=== PATIENT | female | born 1965 | race Caucasian/White ===

== ENCOUNTER 2017-01-26 07:57 | Day surgery (SDC) | payer BC ==
[2017-01-26] MEDS ORDERED: Lactated Ringers 1,000 ML IV SCH (08:45)
[2017-01-26] MEDS ORDERED: Lidocaine 1% 2 ML ONE (08:59)
[2017-01-26] MEDS ORDERED: Glycopyrrolate 0.2 MG/ML 2 ML SYRINGE IVPUSH ONE (09:30)
[2017-01-26] MEDS ORDERED: Cyanocobalamin (Vitamin B12) 1,000 MCG/ML SDV IM ONE (09:30)
[2017-01-26] MEDS ORDERED: MVI, Adult with Vitamin K 10 ML, Thiamine 200 MG, Chromium/Copper/Mang/Selen/Zn 1 ML in... IV ONE ×4 (09:45)
[2017-01-26] MEDS ORDERED: fentaNYL 100 MCG/2 ML SDV ONE (10:59)
[2017-01-26] MEDS ORDERED: Propofol 200 MG/20 ML SDV ONE (10:59)
[2017-01-26] MEDS ORDERED: Midazolam 1 MG/ML 2 ML SDV ONE (10:59)
[2017-01-26 12:26] VITALS: BP 112/66
[2017-01-26] MEDS ORDERED: Ondansetron 4 MG/2 ML SDV IVPUSH ONE (12:30)
--- NOTE | 2017-01-28 18:54 | OR ---
DATE OF PROCEDURE: 01/26/2017 PREOPERATIVE DIAGNOSIS: Probable strictured gastrojejunostomy. POSTOPERATIVE DIAGNOSIS: Moderate strictured gastrojejunostomy. OPERATIVE PROCEDURES: Upper GI endoscopy with dilation gastrojejunostomy (64952). ANESTHESIA: IV sedation. INDICATION FOR PROCEDURE: This is a 51-year-old status post Marjorie-en-Y gastric bypass on 01/26/2017. She presents with some stricturing in her gastrojejunostomy. Plan is proceed with upper GI endoscopy with dilation as indicated. Potential risks including bleeding and perforation were discussed and the patient wishes to proceed. DETAILS OF PROCEDURE: The patient was taken to the operating room and placed in a left lateral decubitus position. IV sedation was administered, after which the upper GI endoscope was passed orally through the length of the esophagus and into the gastric pouch. At that point, the patient noted a moderate stricture of the gastrojejunostomy with a 1-cm scope just being barely able to be passed through the anastomosis. A Bard gastrojejunostomy catheter was then centered across the anastomosis and inflated to 36-Armenian size. This was held in position for 1 minute after the balloon catheter was deflated and withdrawn. The scope could easily then be passed through the anastomosis without any complications noted and the patient was taken to the recovery room in a satisfactory condition after removal of the scope. Eliazar Perez MD /[id number]
== END 2017-01-26 13:30 | disposition home or self-care (01) ==
LOC: JP.SDS 07:57
PROVIDERS: ATTEND Surgery
DX: K91.89 Other postprocedural complications and disorders of digestive system (principal); G47.30 Sleep apnea, unspecified; K21.9 Gastro-esophageal reflux disease without esophagitis; E66.01 Morbid (severe) obesity due to excess calories; Z88.1 Allergy status to other antibiotic agents; Z88.8 Allergy status to other drugs, medicaments and biological substances; Z91.048 Other nonmedicinal substance allergy status
CPT/HCPCS: 43245; J2250; J2405; J2704; J3010; J3411; J3420; J7120

== ENCOUNTER 2017-02-01 10:05 | Day surgery (SDC) | payer BC ==
[2017-02-01] MEDS ORDERED: Lactated Ringers 1,000 ML IV SCH (13:00)
[2017-02-01] MEDS ORDERED: Glycopyrrolate 0.2 MG/ML 2 ML SYRINGE IVPUSH ONE (13:00)
[2017-02-01] MEDS ORDERED: MVI, Adult with Vitamin K 10 ML, Thiamine 200 MG, Chromium/Copper/Mang/Selen/Zn 1 ML in... IV ONE ×4 (13:30)
[2017-02-01] MEDS ORDERED: Cyanocobalamin (Vitamin B12) 1,000 MCG/ML SDV IM ONE (13:30)
[2017-02-01] MEDS ORDERED: Propofol 200 MG/20 ML SDV ONE (13:59)
[2017-02-01] MEDS ORDERED: Midazolam 1 MG/ML 2 ML SDV ONE (13:59)
[2017-02-01] MEDS ORDERED: fentaNYL 100 MCG/2 ML SDV ONE (13:59)
[2017-02-01] MEDS ORDERED: Ondansetron 4 MG/2 ML SDV IVPUSH ONE (14:50)
[2017-02-01 15:38] VITALS: BP 121/66
--- NOTE | 2017-02-02 07:18 | OR ---
DATE OF PROCEDURE: 02/01/2017 PREOPERATIVE DIAGNOSES: Dysphagia, recent Marjorie-en-Y gastric bypass. POSTOPERATIVE DIAGNOSES: Strictured gastrojejunostomy, recent Marjorie-en-Y gastric bypass. PROCEDURE: Esophagogastroduodenoscopy with dilation of gastrojejunostomy. ANESTHESIA: IV anesthesia with monitored anesthesia care. INDICATIONS: This 51-year-old white female, had a recent Marjorie-en-Y gastric bypass. A week ago, she underwent gastric dilatation for a strictured gastrojejunostomy. She did fine initially but then within the last day had noted recurrence of her symptoms of dysphagia. She is referred for upper endoscopy with possible dilatation. I counseled her for this and she gave her informed consent to proceed. DESCRIPTION OF PROCEDURE: The patient was placed in the left lateral decubitus position. IV anesthesia was administered by the Anesthesia Service. Time-out was held. The flexible video Olympus upper endoscope was passed through her mouth, down her esophagus, and into her stomach remnant. The scope would not go across the anastomosis. Under fluoroscopic guidance, we placed a 36-Honduran balloon. We then inflated the balloon for one minute. The balloon was then deflated and removed. We were then able to pass the scope through the anastomosis. All looked well. The scope was removed. She tolerated the procedure well. Nilson Bassett MD /[id number]
== END 2017-02-01 15:47 | disposition home or self-care (01) ==
LOC: JP.SDS 10:05
PROVIDERS: ATTEND Surgery
DX: K91.89 Other postprocedural complications and disorders of digestive system (principal); Z98.84 Bariatric surgery status; Z88.1 Allergy status to other antibiotic agents; Z88.8 Allergy status to other drugs, medicaments and biological substances; Z91.09 Other allergy status, other than to drugs and biological substances
CPT/HCPCS: 43233; J2250; J2405; J2704; J3010; J3411; J3420; J7120

== ENCOUNTER 2017-02-14 06:44 | Day surgery (SDC) | payer BC ==
[2017-02-14] MEDS ORDERED: Lactated Ringers 1,000 ML IV ONE (07:15)
[2017-02-14] MEDS ORDERED: Cyanocobalamin (Vitamin B12) 1,000 MCG/ML SDV IM ONE (07:30)
[2017-02-14] MEDS ORDERED: Glycopyrrolate 0.2 MG/ML 2 ML SYRINGE IVPUSH ONE (08:15)
[2017-02-14] MEDS ORDERED: Propofol 200 MG/20 ML SDV ONE (08:26)
[2017-02-14] MEDS ORDERED: fentaNYL 100 MCG/2 ML SDV ONE (08:27)
[2017-02-14] MEDS ORDERED: Midazolam 1 MG/ML 2 ML SDV ONE (08:27)
[2017-02-14] MEDS ORDERED: MVI, Adult with Vitamin K 10 ML, Thiamine 200 MG, Chromium/Copper/Mang/Selen/Zn 1 ML in... IV ONE ×4 (08:30)
[2017-02-14 10:47] VITALS: BP 117/65
--- NOTE | 2017-02-21 10:59 | OR ---
DATE OF PROCEDURE: 02/14/2017 PREOPERATIVE DIAGNOSIS: Probable stricture at gastrojejunostomy. POSTOPERATIVE DIAGNOSIS: Mild stricture at gastrojejunostomy. OPERATIVE PROCEDURE: Upper GI endoscopy with dilation of gastrojejunostomy (90505). ANESTHESIA: IV sedation. INDICATION FOR PROCEDURE: A 51-year-old status post Marjorie-en-Y gastric bypass on 12/29/2016, presents now with symptoms suggestive of stricturing at her gastrojejunostomy. Plan is to proceed with upper endoscopy with dilation as indicated. Potential risks including bleeding and perforation were discussed, and the patient wishes to proceed. DETAILS OF PROCEDURE: The patient was taken to the operating room and placed in a left lateral decubitus position. IV sedation was administered, after which the upper GI endoscope was passed orally through the length of esophagus into the gastric pouch. The scope could easily then be passed through the anastomosis, indicating at least a 1 cm in diameter opening. The Bard gastrointestinal balloon catheter was then centered across the anastomosis and inflated to #45 Swazi size. This was held in position for 1 minute, after which the balloon catheter was deflated and withdrawn. The area was examined. No complications were evident. Procedure then concluded with removal of the scope. The patient was taken to the recovery room in satisfactory condition. Eliazar Perez MD /[id number]
== END 2017-02-14 10:30 | disposition home or self-care (01) ==
LOC: JP.SDS 06:44
PROVIDERS: ATTEND Surgery
DX: K91.89 Other postprocedural complications and disorders of digestive system (principal); K21.9 Gastro-esophageal reflux disease without esophagitis; E66.01 Morbid (severe) obesity due to excess calories; Z88.1 Allergy status to other antibiotic agents; Z88.8 Allergy status to other drugs, medicaments and biological substances
CPT/HCPCS: 43245; J2250; J2704; J3010; J3411; J3420; J7120

== ENCOUNTER 2017-06-30 05:57 | Day surgery (SDC) | payer BC ==
[2017-06-30] MEDS ORDERED: Dextrose 5%-Lactated Ringers 1,000 ML IV SCH (06:30)
[2017-06-30] MEDS ORDERED: fentaNYL 100 MCG/2 ML SDV ONE (07:20)
[2017-06-30] MEDS ORDERED: Propofol 200 MG/20 ML SDV ONE (07:20)
[2017-06-30] MEDS ORDERED: Midazolam 1 MG/ML 2 ML SDV ONE (07:20)
[2017-06-30 09:08] VITALS: BP 119/34
--- NOTE | 2017-07-03 13:04 | OR ---
DATE OF PROCEDURE: 06/30/2017 PREOPERATIVE DIAGNOSIS: Indications for screening colonoscopy. POSTOPERATIVE DIAGNOSIS: Normal screening colonoscopy. OPERATIVE PROCEDURE: Flexible colonoscopy. ANESTHESIA: IV sedation. INDICATION FOR PROCEDURE: This is a 51-year-old presenting for initial screening colonoscopy. She has no personal or family history of colon neoplasia. Potential risks of the procedure including bleeding and perforation were discussed, and the patient wishes to proceed. DETAILS OF PROCEDURE: The patient was taken to the operating room and placed in a left lateral decubitus position. IV sedation was administered, after which the initial digital rectal exam was performed and was unremarkable. Colonoscope was then passed to the level of the cecum. The prep was fairly good. There were some liquid stool present obscuring smaller portions of the mucosa. To that level, no abnormalities were noted; specifically, there were no diverticula, no areas of colitis and no polyps or other signs of neoplasia. The scope was then withdrawn and the findings reconfirmed. The procedure was concluded. The patient was taken to the recovery room in a satisfactory condition. Recommendation would be to repeat the colonoscopy in 10 years. Eliazar Perez MD /[id number]
== END 2017-06-30 09:07 | disposition home or self-care (01) ==
LOC: JP.SDS 05:57
PROVIDERS: ATTEND Surgery
DX: Z12.11 Encounter for screening for malignant neoplasm of colon (principal); K21.9 Gastro-esophageal reflux disease without esophagitis; E66.9 Obesity, unspecified; G47.30 Sleep apnea, unspecified; E55.9 Vitamin D deficiency, unspecified; Z88.1 Allergy status to other antibiotic agents; Z88.8 Allergy status to other drugs, medicaments and biological substances; Z91.09 Other allergy status, other than to drugs and biological substances; Z98.890 Other specified postprocedural states; Z90.710 Acquired absence of both cervix and uterus; Z90.49 Acquired absence of other specified parts of digestive tract; Z98.51 Tubal ligation status; Z96.653 Presence of artificial knee joint, bilateral; Z68.30 Body mass index [BMI] 30.0-30.9, adult
CPT/HCPCS: 45378; J2250; J2704; J3010

== ENCOUNTER 2018-03-30 05:23 | Inpatient (IN) | payer BC ==
[2018-03-30] MEDS ORDERED: Acetaminophen 500 MG Tab PO ONE (05:30)
[2018-03-30] MEDS ORDERED: Scopolamine 1.5 MG Transdermal Patch TOP SCH (06:00)
[2018-03-30] MEDS ORDERED: cefOXitin 2 GM in Sodium Chloride 0.9% 50 ML IV ONE (06:00)
[2018-03-30] MEDS ORDERED: fentaNYL 250 MCG/5 ML SDV ONE (06:52)
[2018-03-30] MEDS ORDERED: Midazolam 1 MG/ML 2 ML SDV ONE (06:52)
[2018-03-30] MEDS ORDERED: Meropenem 500 MG SDV ONE (06:58)
[2018-03-30] MEDS ORDERED: Bupivacaine 0.5%/EPINEPHrine 1:200,000 50 ML MDV ONE (06:58)
[2018-03-30] MEDS: Dextrose 5%-Lactated Ringers 1,000 ML IV SCH ×2 (07:01→10:56)
[2018-03-30] MEDS ORDERED: cefOXitin 2 GM Vial ONE (07:34)
[2018-03-30] MEDS ORDERED: Ketamine 500 MG/5 ML MDV IV SCH (07:45)
[2018-03-30] MEDS ORDERED: Ropivacaine 43 ML, Dexamethasone 8 MG, EPINEPHrine 0.4 MG, Sodium Chloride 0.9% 34.6 ML NERVRT SCH ×4 (07:45)
[2018-03-30] MEDS ORDERED: Naloxone 0.4 MG/ML SDV IV PRN (08:11)
[2018-03-30] MEDS ORDERED: Dexamethasone 4 MG/ML SDV ONE (08:19)
[2018-03-30] MEDS ORDERED: Glycopyrrolate 0.2 MG/ML 5 ML MDV ONE (08:19)
[2018-03-30] MEDS ORDERED: Rocuronium 50 MG/5 ML Vial ONE (08:19)
[2018-03-30] MEDS ORDERED: Ondansetron 4 MG/2 ML SDV ONE (08:19)
[2018-03-30] MEDS ORDERED: Neostigmine Methylsulfate 1 MG/ML 5 ML Syringe ONE (08:19)
[2018-03-30] MEDS ORDERED: Propofol 200 MG/20 ML SDV ONE (08:19)
[2018-03-30] MEDS ORDERED: hydrOXYzine HCl 100 MG/2 ML SDV IM ONE (09:36)
[2018-03-30] MEDS ORDERED: fentaNYL 100 MCG/2 ML SDV IVPUSH ONE (09:37)
[2018-03-30] MEDS ORDERED: Meperidine PF 100 MG/ML Syringe IM ONE (10:20)
[2018-03-30] MEDS ORDERED: Meperidine PF 100 MG/ML Syringe ONE (10:30)
[2018-03-30] MEDS: HYDROmorphone/Normal Saline 15 MG/30 ML PCA IV PRN (11:47)
[2018-03-30] MEDS ORDERED: Cyclobenzaprine 10 MG Tab PO PRN (11:56)
[2018-03-30] MEDS ORDERED: Pantoprazole 40 MG Vial IVPUSH SCH (12:00)
[2018-03-30] MEDS ORDERED: Ondansetron 4 MG/2 ML SDV IVPUSH PRN (12:00)
[2018-03-30] MEDS ORDERED: Labetalol 20 MG/4 ML Syringe IVPUSH PRN (12:00)
[2018-03-30] MEDS ORDERED: Metoclopramide 10 MG/2 ML SDV IVPUSH PRN (12:00)
[2018-03-30] MEDS ORDERED: hydrOXYzine HCl 100 MG/2 ML SDV IM PRN (12:00)
[2018-03-30] MEDS: Acetaminophen Soln 650 MG/20.3 ML UD Cup PO SCH ×3 (12:36→23:15)
[2018-03-30] MEDS: cefOXitin 2 GM in Sodium Chloride 0.9% 50 ML IV SCH ×2 (13:40→20:44)
[2018-03-30] MEDS ORDERED: MVI, Adult with Vitamin K 10 ML, Thiamine 100 MG, Chromium/Copper/Mang/Selen/Zn 1 ML in... IV SCH ×4 (16:00)
[2018-03-30] MEDS: Heparin Sodium 5,000 Units/ML Vial SUBCUT SCH (20:44)
[2018-03-30] MEDS: traZODone 50 MG Tab PO SCH (21:51)
[2018-03-30] MEDS: tiZANidine 4 MG Tab PO SCH (21:51)
[2018-03-31] MEDS: Dextrose 5%-Lactated Ringers 1,000 ML IV SCH ×3 (00:10→11:44)
[2018-03-31] MEDS ORDERED: Iohexol 647 MG/ML 50 ML SDV PO PRN (01:04)
[2018-03-31] MEDS: cefOXitin 2 GM in Sodium Chloride 0.9% 50 ML IV SCH ×2 (02:38→07:43)
[2018-03-31] MEDS: HYDROmorphone/Normal Saline 15 MG/30 ML PCA IV PRN (03:24)
[2018-03-31] MEDS: Acetaminophen Soln 650 MG/20.3 ML UD Cup PO SCH ×4 (05:25→23:57)
[2018-03-31] MEDS: Heparin Sodium 5,000 Units/ML Vial SUBCUT SCH ×2 (07:42→20:00)
[2018-03-31] MEDS: SCOPOLAMINE PATCH CHECK TOP SCH (08:52)
[2018-03-31] MEDS ORDERED: Tamsulosin 0.4 MG Cap.ER PO ONE (09:30)
[2018-03-31] MEDS ORDERED: Loratadine 10 MG Tab PO SCH (09:30)
[2018-03-31] MEDS ORDERED: Estradiol 0.5 MG Tab PO SCH (09:30)
[2018-03-31] MEDS: Docusate Sodium 100 MG Cap PO SCH ×2 (10:18→20:06)
[2018-03-31] MEDS: Pantoprazole 40 MG Tab.CR PO SCH (11:22)
[2018-03-31] MEDS: diphenhydrAMINE 50 MG/ML SDV IVPUSH PRN ×2 (13:11→19:46)
[2018-03-31] MEDS ORDERED: MVI, Adult with Vitamin K 10 ML, Thiamine 100 MG, Chromium/Copper/Mang/Selen/Zn 1 ML in... IV SCH ×4 (16:00)
[2018-03-31] MEDS ORDERED: diphenhydrAMINE 50 MG/ML SDV ONE (19:36)
[2018-03-31] MEDS ORDERED: Morphine PF 150 MG/30 ML PCA Syringe IV PRN (19:43)
[2018-03-31] MEDS ORDERED: methylPREDNISolone Sodium Succinate 40 MG/1 ML SDV IVPUSH ONE (19:45)
[2018-03-31] MEDS: Estradiol 0.5 MG Tab PO SCH (20:05)
[2018-03-31] MEDS: traZODone 50 MG Tab PO SCH (20:05)
[2018-03-31] MEDS: tiZANidine 4 MG Tab PO SCH (20:05)
[2018-03-31] MEDS: Loratadine 10 MG Tab PO SCH (20:05)
[2018-03-31] MEDS: Melatonin 3 MG Tab PO SCH (20:06)
[2018-03-31] MEDS ORDERED: Morphine PF 150 MG/30 ML PCA Syringe ONE (20:09)
[2018-03-31] MEDS ORDERED: methylPREDNISolone Sodium Succinate 125 MG/2 ML SDV ONE (20:10)
[2018-03-31] MEDS ORDERED: Tamsulosin 0.4 MG Cap.ER PO SCH (21:00)
[2018-04-01] MEDS: Dextrose 5%-Lactated Ringers 1,000 ML IV SCH (02:10)
[2018-04-01] MEDS: Acetaminophen Soln 650 MG/20.3 ML UD Cup PO SCH (05:49)
[2018-04-01] MEDS: Pantoprazole 40 MG Tab.CR PO SCH (07:32)
[2018-04-01] MEDS ORDERED: Sodium Chloride 0.9% 10 ML Syringe IV PRN (07:43)
[2018-04-01] MEDS: Heparin Sodium 5,000 Units/ML Vial SUBCUT SCH ×2 (08:12→21:18)
[2018-04-01] MEDS: Docusate Sodium 100 MG Cap PO SCH ×2 (08:13→21:19)
[2018-04-01] MEDS: Acetaminophen/oxyCODONE 325-5 MG Tab PO PRN ×4 (08:13→21:19)
[2018-04-01] MEDS: SCOPOLAMINE PATCH CHECK TOP SCH (08:14)
[2018-04-01] MEDS ORDERED: Cyanocobalamin (Vitamin B12) 1,000 MCG/ML SDV IM ONE (09:00)
[2018-04-01] MEDS ORDERED: Magnesium Hydroxide 400 MG/5 ML Susp 30 ML Cup PO ONE (16:00)
--- NOTE | 2018-04-01 16:07 | PN ---
DATE OF SERVICE: 04/01/2018 The patient has been afebrile with stable vital signs. Oral intake is fairly good. We will saline lock the IV. We will order oral Percocet today for pain. Urine output has been satisfactory and we will discontinue the Flomax. We will continue to give her some bowel stimulation with some Dulcolax oral tablets. Eliazar Perez MD /[id number]
[2018-04-01] MEDS ORDERED: Bisacodyl 5 MG Tab PO ONE (17:00)
[2018-04-01] MEDS: tiZANidine 4 MG Tab PO SCH (21:19)
[2018-04-01] MEDS: Melatonin 3 MG Tab PO SCH (21:19)
[2018-04-01] MEDS: Loratadine 10 MG Tab PO SCH (21:19)
[2018-04-01] MEDS: traZODone 50 MG Tab PO SCH (21:19)
[2018-04-01] MEDS: Estradiol 0.5 MG Tab PO SCH (21:19)
[2018-04-01] MEDS ORDERED: Ondansetron 4 MG Tab.DIS PO PRN (23:29)
[2018-04-02] MEDS: Acetaminophen/oxyCODONE 325-5 MG Tab PO PRN ×2 (02:58→10:23)
[2018-04-02] MEDS ORDERED: Acetaminophen 325 MG Tab PO ONE (06:29)
[2018-04-02 07:42] VITALS: BP 113/67
[2018-04-02] MEDS: Pantoprazole 40 MG Tab.CR PO SCH (07:51)
[2018-04-02] MEDS: Heparin Sodium 5,000 Units/ML Vial SUBCUT SCH (07:53)
--- NOTE | 2018-04-02 08:45 | DISCH ---
ADMISSION DIAGNOSES: Partial small bowel obstruction, celiac disease, status post Marjorie-en-Y gastric bypass surgery, iron deficiency anemia, chronic low back pain, premature ventricle contractions, B12 deficiency, unspecified surgical malabsorption, osteoarthritis, mood changes, osteoporosis, spinal stenosis, chronic pain syndrome, neuropathy, arachnoiditis, and insomnia. DISCHARGE DIAGNOSES: Laparoscopic turned to laparotomy with reduction of small bowel volvulus and closure of internal hernia, small bowel resection and repair of incarcerated incisional hernia for small bowel volvulus with focal hemorrhage to the segment of the small bowel and incarcerated umbilical hernia. Date of surgery, 03/30/2018. Surgeon, Eliazar Perez MD. HISTORY: Zaria Vigil is a 52-year-old female who is status post Marjorie-en-Y gastric bypass surgery on 12/29/2016, who presented to the clinic with postprandial abdominal pain. After preoperative assessment and discussion of possible risks and possible complications, she wished to proceed with surgical procedure. HOSPITAL COURSE: Zaria had her surgery on 03/30/2018. She had no operative complications. On postop day #1, she was started on her home medications. On postop day #2, her GIFT OFFICER was discontinued. She was changed to oral pain medications. She was voiding without difficulty. She was given bowel stimulation. On postop day #3, she was able to be discharged to home. PHYSICAL EXAMINATION: GENERAL: Zaria Vigil is a 52-year-old female. VITAL SIGNS: TPR is 97.7, 68, 16, and blood pressure 113/67. HEENT: Negative. NECK: Supple. HEART: Regular rate and rhythm. LUNGS: Clear. ABDOMEN: Lisa intact. Abdominal binder is currently off. EXTREMITIES: Without peripheral edema. DISPOSITION: Discharged to home. CONDITION: Stable and improving. FOLLOWUP APPOINTMENT: Clementina Anna PA-C, on 04/09/2018 at 10 a.m. DISCHARGE MEDICATIONS: New Prescriptions: 1. Percocet 5/325 mg 1 to 2 oral q.4 hours p.r.n. pain, #40. 2. Colace 100 mg oral b.i.d., #100. 3. She is to resume her home medications with the exception of tramadol. She is to stop taking the tramadol while on the Percocet. DISCHARGE DIET: Step-4 gastric bypass diet. Drink 8 to 10 glasses of water a day. ACTIVITY: No lifting greater than 10 pounds for 6 weeks. Walk 6 times daily, distance and time as tolerated. Driving, do not drive while on pain medication. Shower/bathing, may shower. DISCHARGE INSTRUCTIONS: Notify provider of fever, increased pain, nausea, or vomiting. Keep site clean and dry. Wound incision care, wear abdominal binder for 6 weeks. Special instructions; 1. Use incentive spirometer 10 times every hour while awake. 2. Take 119 grams of MiraLAX when you get home. Repeat in a.m. if you have not had a bowel movement.
--- NOTE | 2018-04-02 08:58 | CR ---
Limited upper GI The patient is status post Marjorie-en-Y gastric bypass. There are left upper quadrant drains in place. T here is no extravasation of contrast. The gastric pouch empties readily into a nondilated Marjorie limb. No complications are evident. There is free air underlying the right hemidiaphragm. Impression: 1. Status post Marjorie-en-Y gastric bypass without evidence for obstruction. 2. Pneumoperitoneum. Recommend clinical correlation of this finding with timing of surgery.
[2018-04-02] MEDS: Docusate Sodium 100 MG Cap PO SCH (10:11)
--- NOTE | 2018-04-02 13:02 | PN ---
DATE OF SERVICE: 03/31/2018 The patient is postop day #1 from a reduction of volvulus and small bowel resection. She has done well overnight. Urine output has been satisfactory. Arechiga catheter was removed. She did have problems with urinary retention previously and will be started on some Flomax empirically. Otherwise, restart the remainder of her oral standing medications. Start a step-4 diet, back down the IV rate, and work with pulmonary toilet. Will leave MONOTYPER going for today, most likely getting that switched over to oral pain medicine tomorrow. Eliazar Perez MD /[id number]
--- NOTE | 2018-04-03 09:01 | OR ---
DATE OF PROCEDURE: 03/30/2018 PREOPERATIVE DIAGNOSES: 1. Partial small bowel obstruction. 2. Umbilical hernia. POSTOPERATIVE DIAGNOSES: 1. Partial small bowel obstruction associated with small bowel volvulus associated with focal hemorrhage of short-segment of small bowel. 2. Incarcerated umbilical hernia. OPERATIVE PROCEDURES: Diagnostic laparoscopy converted to laparotomy with: 1. Reduction of small bowel volvulus and closure of internal hernia (82350). 2. Small bowel resection (87305). 3. Repair of incarcerated umbilical hernia (09594). ANESTHESIA: General. CLIENT RELATIONSHIP MANAGER: Clementina Anna PA-C. INDICATIONS FOR PROCEDURE: This is a 52-year-old presenting with a nonreducible umbilical hernia. The plan is to proceed with repair of this. She also has symptoms suggestive of a partial small bowel obstruction, status post Marjorie-en-Y gastric bypass. Plan is to proceed with a diagnostic laparoscopy, laparotomy if necessary, and repair of the hernia with or without mesh, as well as evaluation of small bowel with lysis of adhesions, reduction of any volvulus that would be identified, as well as possible small-bowel resection. This was all reviewed with the patient, and potential risks including bleeding, infection, leaks from various GI tract closures, possible problems with bowel obstruction once again recurring, and possibility of the umbilical hernia repair recurring likewise were all reviewed, and the patient wishes to proceed. DETAILS OF PROCEDURE: The patient was taken to the operating room and placed in a supine position. After general endotracheal anesthesia was induced, she was converted to a lithotomy position and a Arechiga catheter inserted and the abdomen was then prepped and draped. In the left lower quadrant, a transverse incision was made and the peritoneal cavity entered under direct vision with an Optiview trocar, inflated to 15 mmHg pressure with CO2. Laparoscope was then reinserted. No underlying trocar insertion site injuries were seen. Following this, bilateral as well as subcostal transversus abdominis plane blocks were placed with direct visualization of the needle tip in the correct plane and bilateral standard solution injected bilaterally. Following this, 5 mm trocars were placed in the right and left mid abdomen. The small bowel was then traced downward, and the patient was noted to have a volvulus with the Marjorie limb diving into the area of a mesenteric defect. One additional 5 mm trocar was then placed in the left mid abdomen. At that point, the small bowel volvulus was begun to be reduced, bringing the small bowel from a [id number] manner. As one proceeded roughly skilled nursing through this process, it became evident that the entrapment of the bowel in the hernia was somewhat too tight to safely complete laparoscopically. At that point, a decision was made to proceed with an open approach. At this point, the trocars had to be removed. An upper midline incision was made from the umbilicus, roughly a handsbreadth toward the xiphoid. This was carried down through the skin, subcutaneous tissue, fascia, and peritoneum. Upon entering the peritoneal cavity, the remainder of the volvulus was then able to be reduced manually. All the bowel appeared to be viable, other than a roughly 10 cm segment that had quite a bit of hemorrhage within the mesentery adjacent to the bowel predominantly, as well as some serosal injury at that bowel. The bowel proximal and distal to the point where it became abnormal was then divided with ORALIA aman, and the underlying mesentery was divided with ORALIA aman as well, and the small bowel, which was part of, at this point, the common limb, was removed. The small bowel continuity was then accomplished with internal firing of the Endo-ORALIA 60-mm stapler. The common opening was then closed transversely with the same stapler and the angles anastomosed, and mesenteric defect approximated with some 3-0 Vicryl stitch. At that point, the point where the small bowel volvulus had occurred, i.e. the mesenteric defect, was then closed with a running 2-0 silk stitch. The incision was then extended somewhat inferiorly. The incarcerated components of umbilical hernia, which was preperitoneal fat, were then reduced, and at that point, the umbilical hernia site was closed with two kukgqg-[id number]-qpoga stitches of #1 Prolene stitch. The area was irrigated with antibiotic-containing saline solution. The patient had sufficient omentum to mobilize downward to cover the area underlying the incision, and the incision was then closed with #2 Vicryl stitch at the fascia level. A Vince-Horne drain was then placed through the stab wound inferior to the main incision and the subcutaneous tissue approximated with 2 layers of 3-0 Vicryl stitch and the skin with aman. The drain was affixed with some 4-0 Vicryl stitch as well. The dressing was applied. The patient was taken to the recovery room in satisfactory condition. Physician surgical physician assistant, Clementina Anna, played an essential role in assisting in this case, helping to position the patient, retract structures as needed, as well as suturing and cutting sutures as and when indicated. Her presence improved patient safety and decreased the operative time. Eliazar Perez MD /[id number]
== END 2018-04-02 10:25 | disposition home or self-care (01) | DRG 223 ==
LOC: JP.MS 05:23 → JP.SDS 05:24 → JP.2SS 09:45 → EDSTATUS 11:00
PROVIDERS: ADMIT Surgery; ATTEND Surgery
PROC: 0DS80ZZ Reposition Small Intestine, Open Approach (ICD-10-PCS; principal; 2018-03-30)
PROC: 0DB80ZX Excision of Small Intestine, Open Approach, Diagnostic (ICD-10-PCS; 2018-03-30)
PROC: 0DJD4ZZ Inspection of Lower Intestinal Tract, Percutaneous Endoscopic Approach (ICD-10-PCS; 2018-03-30)
PROC: 3E0T3BZ Introduction of Anesthetic Agent into Peripheral Nerves and Plexi, Percutaneous Approach (ICD-10-PCS; 2018-03-30)
PROC: 0WQF0ZZ Repair Abdominal Wall, Open Approach (ICD-10-PCS; 2018-03-30)
DX: K56.2 Volvulus (principal); K42.0 Umbilical hernia with obstruction, without gangrene; Z53.31 Laparoscopic surgical procedure converted to open procedure; K55.8 Other vascular disorders of intestine; K91.2 Postsurgical malabsorption, not elsewhere classified; K90.0 Celiac disease; Z98.84 Bariatric surgery status; Z98.0 Intestinal bypass and anastomosis status; D50.9 Iron deficiency anemia, unspecified; M54.9 Dorsalgia, unspecified; G89.29 Other chronic pain; M19.90 Unspecified osteoarthritis, unspecified site; F39 Unspecified mood [affective] disorder; E53.8 Deficiency of other specified B group vitamins; I49.3 Ventricular premature depolarization; M81.0 Age-related osteoporosis without current pathological fracture; M48.00 Spinal stenosis, site unspecified; G62.9 Polyneuropathy, unspecified; G47.00 Insomnia, unspecified; H40.9 Unspecified glaucoma; J30.9 Allergic rhinitis, unspecified; Z88.1 Allergy status to other antibiotic agents; Z88.8 Allergy status to other drugs, medicaments and biological substances; Z91.048 Other nonmedicinal substance allergy status
CPT/HCPCS: 74240; 74240-26; 94762; A9270-GY; C9113; J0171; J0694; J1100; J1170; J1200; J1644; J2175; J2185; J2250; J2270; J2405; J2704; J2710; J2795; J2920; J3010; J3410; J3411; J3420; J7030; J7040; J7042; J7050; Q9967

== ENCOUNTER 2018-12-24 05:24 | Observation (INO) | payer BC ==
[2018-12-24] MEDS ORDERED: Scopolamine 1.5 MG Transdermal Patch TOP SCH (05:45)
[2018-12-24] MEDS ORDERED: Acetaminophen 500 MG Tab PO ONE (05:45)
[2018-12-24] MEDS ORDERED: ceFAZolin 2 GM in Premix Bag 1 BAG IV ONE (06:00)
[2018-12-24] MEDS ORDERED: Dextrose 5%-Lactated Ringers 1,000 ML IV SCH ×2 (06:00→09:30)
[2018-12-24] MEDS ORDERED: Meropenem 500 MG SDV ONE (06:44)
[2018-12-24] MEDS ORDERED: Dexamethasone 4 MG/ML SDV ONE (07:04)
[2018-12-24] MEDS ORDERED: Ondansetron 4 MG/2 ML SDV ONE (07:04)
[2018-12-24] MEDS ORDERED: Propofol 200 MG/20 ML SDV ONE (07:04)
[2018-12-24] MEDS ORDERED: Glycopyrrolate 0.2 MG/ML 5 ML MDV ONE (07:04)
[2018-12-24] MEDS ORDERED: Neostigmine Methylsulfate 1 MG/ML 5 ML Syringe ONE (07:04)
[2018-12-24] MEDS ORDERED: fentaNYL 250 MCG/5 ML SDV ONE (07:04)
[2018-12-24] MEDS ORDERED: Rocuronium 50 MG/5 ML Vial ONE (07:04)
[2018-12-24] MEDS ORDERED: Ketamine 500 MG/5 ML MDV IV SCH (07:30)
[2018-12-24] MEDS ORDERED: Ropivacaine 42 ML, Dexamethasone 8 MG, EPINEPHrine 0.4 MG, Sodium Chloride 0.9% 35.6 ML NERVRT SCH ×4 (07:30)
[2018-12-24] MEDS ORDERED: Ketamine 50 MG in Sodium Chloride 0.9% 49.5 ML IV SCH (07:30)
[2018-12-24] MEDS ORDERED: Bupivacaine 0.5%/EPINEPHrine 1:200,000 50 ML MDV ONE (07:57)
[2018-12-24] MEDS ORDERED: hydrOXYzine HCl 100 MG/2 ML SDV IM ONE (08:24)
[2018-12-24] MEDS ORDERED: fentaNYL 100 MCG/2 ML SDV ONE (08:26)
[2018-12-24] MEDS ORDERED: HYDROmorphone/Normal Saline 15 MG/30 ML PCA IV PRN (08:36)
[2018-12-24] MEDS ORDERED: Naloxone 0.4 MG/ML SDV IV PRN (08:39)
[2018-12-24] MEDS ORDERED: hydrOXYzine HCl 100 MG/2 ML SDV IM PRN (09:27)
[2018-12-24] MEDS ORDERED: Ondansetron 4 MG/2 ML SDV IVPUSH PRN (09:27)
[2018-12-24] MEDS ORDERED: Loratadine 10 MG Tab PO PRN (09:29)
[2018-12-24] MEDS ORDERED: Hyoscyamine 0.125 MG Tab.SL SL PRN (09:30)
[2018-12-24] MEDS ORDERED: Acetaminophen 1,000 MG in Premix Bag 1 BAG IV ONE (10:00)
[2018-12-24] MEDS: Acetaminophen 325 MG Tab PO SCH ×2 (18:39→21:18)
[2018-12-24] MEDS: traZODone 50 MG Tab PO SCH (21:18)
[2018-12-24] MEDS: tiZANidine 4 MG Tab PO PRN (21:18)
[2018-12-25] MEDS: Acetaminophen 325 MG Tab PO SCH ×4 (04:47→22:05)
[2018-12-25] MEDS: HYDROmorphone 2 MG Tab PO PRN ×5 (08:05→22:05)
[2018-12-25] MEDS ORDERED: Estradiol 0.5 MG Tab PO SCH (09:00)
[2018-12-25] MEDS: Phenazopyridine 95 MG Tab PO SCH ×3 (09:36→17:56)
[2018-12-25] MEDS: tiZANidine 4 MG Tab PO PRN (19:45)
[2018-12-25] MEDS: traZODone 50 MG Tab PO SCH (22:05)
[2018-12-26] MEDS: Acetaminophen 325 MG Tab PO SCH ×2 (04:49→09:59)
[2018-12-26] MEDS: HYDROmorphone 2 MG Tab PO PRN (04:50)
[2018-12-26] MEDS: Phenazopyridine 95 MG Tab PO SCH (09:59)
--- NOTE | 2018-12-26 11:14 | DISCH ---
ADMISSION DIAGNOSIS: 1. Recurrent incarcerated incisional hernia. 2. Status post Marjorie-en-Y gastric bypass surgery. 3. Unspecified surgical malabsorption. 4. B12 deficiency. 5. Allergic rhinitis. 6. Bursitis. 7. Celiac disease. 8. Degenerative joint disease, cervical. 9. Chronic low back pain. 10.Glaucoma. 11.Insomnia. 12.Iron-deficiency anemia. 13.Long-term, current use of opioid analgesics with revoked agreement on 01/28/2018. 14.Osteoarthritis of knee. 15.Osteoporosis. 16.Polycystic ovaries. 17.Premature ventricular contractions. 18.Sacroiliac joint dysfunction. 19.Sleep apnea. DISCHARGE DIAGNOSES: Diagnostic laparoscopy with lysis of adhesions, repair of recurrent incarcerated incisional hernia with mesh and placement of Interceed mesh for recurrent incarcerated incisional hernia and extensive intraabdominal adhesions. Date of surgery 12/24/2018. Surgeon, Eliazar Perez MD. HISTORY: Zaria Vigil is a 53-year-old female with recurrent incarcerated incisional hernia. After preoperative evaluation and discussion of possible risks and possible complications, she wished to proceed with surgical procedure. HOSPITAL COURSE: Musa had her surgery on 12/24/2018. She had no operative complications. On postoperative day #1, she was changed to oral pain medication. She continued on a step 3 gastric bypass diet. Her activity was good. IV was saline locked. On 12/26/2018, she was able to be discharged to home without any complications. PHYSICAL EXAMINATION: GENERAL: Zaria Vigil is a 53-year-old female, height is 5 feet 4 inches. Weight is 185 pounds. VITAL SIGNS: TPR is 99.1, 69, 16, blood pressure 109/60. HEENT: Negative. NECK: Supple. HEART: Regular rate and rhythm. LUNGS: Clear. ABDOMEN: Dressing was removed. Sutures intact. Expected tenderness with palpation. Abdominal binder with pressure dressing over hernia site has been on. EXTREMITIES: Without peripheral edema. DISPOSITION: Discharged to home. CONDITION: Stable and improving. FOLLOWUP APPOINTMENT: Clementina Anna PA-C, on 01/03/2019 at 10 a.m. MEDICATIONS: New prescriptions: 1. Tylenol 650 mg oral q.6 hours p.r.n. pain. 2. Dilaudid 2 mg 1 to 2 every 4 hours p.r.n. pain, #40. She is to resume her home medications: 1. Biotin 10,000 units daily. 2. Calcium 1 twice daily. 3. Vitamin D3 5000 international units daily. 4. Vitamin B12 25 micromilligram sublingual daily. 5. Estrace 1 mg oral daily. 6. Folic acid 1 mg oral daily. 7. Hydrocortisone 1% cream one applicator topical twice daily. 8. Levsin 0.125 mg oral every 4 hours p.r.n. cramping. 9. Claritin 10 mg oral daily. 10.Multivitamin 1 tablet twice daily. 11.Zofran ODT 4 mg every 4 hours p.r.n. nausea. 12.Vitamin B complex one tablet at bedtime. 13.Zinc 50 mg oral daily. 14.Metronidazole 0.75% cream one applicator twice daily. 15.Zanaflex 4 mg oral at bedtime p.r.n. muscle spasms. DIET: Usual diet as tolerated, drink 8 to 10 glasses of water a day. ACTIVITY: No lifting greater than 10 pounds for 6 weeks. Other activity, walk at least 6 times daily. Driving: Do not drive for 1 week and then while on pain medication. Shower/bathing, may shower. DISCHARGE INSTRUCTIONS: Notify provider if any fever, increased pain, nausea, or vomiting. Keep site clean and dry. Wear abdominal binder for 6 weeks with pressure dressing over hernia site. Special instruction: Use incentive spirometer 10 times every hour, wear while awake for 1 week.
[2018-12-26 15:15] VITALS: BP 101/63
--- NOTE | 2018-12-30 12:27 | PN ---
DATE OF SERVICE: 12/25/2018 The patient is postop day #1 from a laparoscopic repair of an incarcerated recurrent incisional hernia. Clinically, she is doing well. At this point, we will switch over to oral Dilaudid plus Tylenol. She is complaining of some bladder irritation. We will check a UA, urine C and S, and also add some Pyridium. She will likely be ready for discharge home tomorrow. Eliazar Perez MD /[id number]
--- NOTE | 2018-12-31 12:41 | OR ---
DATE OF PROCEDURE: 12/24/2018 PREOPERATIVE DIAGNOSIS: Recurrent incisional hernia. POSTOPERATIVE DIAGNOSIS: 1. Recurrent incarcerated incisional hernia. 2. Extensive intraabdominal pelvic adhesions. OPERATIVE PROCEDURES: 1. Diagnostic laparoscopy with lysis of extensive intraabdominal pelvic adhesions: a. Repair of recurrent incarcerated incisional hernia with mesh (41653). b. Placement of Interceed mesh to displace viscera from pelvic and abdominal wall to limit recurrent adhesion formation (22401). ANESTHESIA: General. ASSISTANTS: Clementina Anna PA-C, and SOM Milton. INDICATION FOR PROCEDURE: This 53-year-old presenting with recurrent incisional hernia located in the upper abdomen. The plan is to proceed with a diagnostic laparoscopy, laparotomy if necessary, and repair of the hernia with mesh. Potential risks including bleeding, infection, problems with mesh becoming infected or the hernia recurring, injury to underlying viscera and such were all reviewed, and the patient wishes to proceed. DETAILS OF PROCEDURE: The patient was taken to the operating room and placed in a supine position. After general endotracheal anesthesia was induced, a Arechiga catheter was inserted, which was removed at the conclusion of procedure, and the abdomen prepped and draped. Beginning in the left lateral abdominal wall, a transverse incision was made. Peritoneal cavity was entered under direct vision with Optiview trocar, inflated to 15 mmHg pressure of CO2. Laparoscope was then reinserted. No underlying trocar insertion site injuries were seen. Following this, then 5 mm trocars were placed in the left upper quadrant and left lower quadrant, and extensive adhesions were taken down. This included some adhesions of omentum and a loop of small bowel within the hernia itself, i.e. this was an incarcerated hernia. The bowel was dissected off sharply with no evident enterotomies present and the omental adhesions taken down with Harmonic Scalpel. Once all the adhesions were taken down, hernia was mapped out, and a 20.[address] mesh with the balloon positioning system was selected. This was soaked in antibiotic-containing saline solution and placed in intraabdominal location. A small stab wound over the center of the hernia was made at the skin level and the balloon inflation catheter pulled up through the center of the mesh over the hernia by that means and the balloon inflated and the mesh was then affixed with absorbable tacking screws placed circumferentially in 2 rows. At that point, the balloon catheter was deflated and removed, and there appeared to be good fixation of the mesh in all dimensions. A 5 mm trocar x2 also had to be placed on the right side to allow placement of the tacking screws on the left side of the abdominal wall. At that point, no further problems were noted. To limit recurrent adhesion formation between the pelvic and abdominal wall and underlying viscera, Interceed mesh was placed underneath the mesh and from there extending downward toward the pelvis. Once this was in place and no additional problems were noted, trocars were removed. Fascia at the 12 mm camera port was closed with 0 Vicryl stitch and the skin with 4-0 Vicryl skin stitch. Dressing was applied. The patient was taken to the recovery room in satisfactory condition. Physician bus assistant, Clementina Anna, played an essential role in assisting in this case, helping to position the patient, retract structures as needed, as well as suturing and cutting sutures when indicated. Her presence improved the patient's safety and decreased operative time. Eliazar Perez MD /[id number]
== END 2018-12-26 10:30 | disposition home or self-care (01) ==
LOC: JP.SDSSCHI 05:24 → UNDOADMIN 05:24 → JP.SDS 05:24 → EDSTATUS 07:15 → JP.SDSSCHI 08:30 → JP.MS 08:30 → JP.SDS 12-25 11:30 → JP.MS 12-25 11:40 → UNDODISIN 12-26 10:30
PROVIDERS: ADMIT Surgery; ATTEND Surgery
DX: K43.0 Incisional hernia with obstruction, without gangrene (principal); K66.0 Peritoneal adhesions (postprocedural) (postinfection); Z98.84 Bariatric surgery status; D50.9 Iron deficiency anemia, unspecified; E53.8 Deficiency of other specified B group vitamins; E28.2 Polycystic ovarian syndrome; M47.892 Other spondylosis, cervical region; M17.0 Bilateral primary osteoarthritis of knee; G89.29 Other chronic pain; M54.5 Low back pain; G47.33 Obstructive sleep apnea (adult) (pediatric); Z79.899 Other long term (current) drug therapy; Z88.1 Allergy status to other antibiotic agents; Z88.8 Allergy status to other drugs, medicaments and biological substances; Z91.048 Other nonmedicinal substance allergy status
CPT/HCPCS: 49329; 49657; 81001; 87086; 94762; A9270; C1781; J0131; J0171; J0690; J1100; J1170; J2020; J2185; J2405; J2704; J2710; J2795; J3010; J3410; J3490; J7042; J7050; G0378

== ENCOUNTER 2019-08-09 09:20 | Inpatient (IN) | payer BC ==
[~2019-08-09 09:20] MED LIST: Dexamethasone 4 MG/ML SDV ONE; Glycopyrrolate 0.2 MG/ML 5 ML MDV ONE; Neostigmine Methylsulfate 1 MG/ML 5 ML Syringe ONE; Ondansetron 4 MG/2 ML SDV ONE; Propofol 200 MG/20 ML SDV ONE; Rocuronium 50 MG/5 ML Vial ONE; Succinylcholine 200 MG/10 ML MDV ONE; fentaNYL 250 MCG/5 ML SDV ONE
[2019-08-09] MEDS ORDERED: Acetaminophen 500 MG Tab PO ONE (09:45)
[2019-08-09] MEDS ORDERED: Scopolamine 1.5 MG Transdermal Patch TOP SCH (09:45)
[2019-08-09] MEDS ORDERED: Lidocaine 2% 100 MG/5 ML Syringe IVPUSH SCH (10:00)
[2019-08-09] MEDS ORDERED: Ketamine 50 MG in Sodium Chloride 0.9% 49.5 ML IV SCH (10:00)
[2019-08-09] MEDS ORDERED: Ketamine 500 MG/5 ML MDV IV SCH (10:00)
[2019-08-09] MEDS ORDERED: Dextrose 5%-Lactated Ringers 1,000 ML IV SCH (10:30)
[2019-08-09] MEDS ORDERED: cefOXitin 2 GM in Sodium Chloride 0.9% 50 ML IV ONE (11:00)
[2019-08-09] MEDS ORDERED: Meropenem 500 MG SDV ONE (11:26)
[2019-08-09] MEDS ORDERED: Lactated Ringers 1,000 ML ONE (13:00)
[2019-08-09] MEDS ORDERED: fentaNYL 250 MCG/5 ML SDV ONE (13:01)
[2019-08-09] MEDS ORDERED: Rocuronium 50 MG/5 ML Vial ONE (13:02)
[2019-08-09] MEDS ORDERED: Bupivacaine 0.5%/EPINEPHrine 1:200,000 50 ML MDV ONE (13:39)
[2019-08-09] MEDS ORDERED: hydrOXYzine HCl 100 MG/2 ML SDV IM ONE (14:16)
[2019-08-09] MEDS ORDERED: fentaNYL 100 MCG/2 ML SDV IVPUSH ONE ×3 (14:17→14:45)
[2019-08-09] MEDS ORDERED: HYDROmorphone 0.5 MG/0.5 ML Syringe IVPUSH PRN (15:35)
[2019-08-09] MEDS ORDERED: Metoclopramide 10 MG/2 ML SDV IVPUSH PRN (15:35)
[2019-08-09] MEDS ORDERED: diphenhydrAMINE 50 MG/ML SDV IVPUSH PRN (15:35)
[2019-08-09] MEDS ORDERED: hydrOXYzine HCl 100 MG/2 ML SDV IM PRN (15:35)
[2019-08-09] MEDS ORDERED: HYDROmorphone 1 MG/ML Syringe IV PRN (15:35)
[2019-08-09] MEDS ORDERED: Labetalol 20 MG/4 ML Syringe IVPUSH PRN (15:35)
[2019-08-09] MEDS: Ondansetron 4 MG/2 ML SDV IVPUSH PRN (15:57)
[2019-08-09] MEDS: tiZANidine 4 MG Tab PO PRN (15:58)
[2019-08-09] MEDS: Lidocaine 0.4%/D5W 2 GM/500 ML BAG IV SCH (15:58)
[2019-08-09] MEDS ORDERED: Pantoprazole 40 MG Vial IV SCH (16:00)
[2019-08-09] MEDS ORDERED: MVI, Adult with Vitamin K 10 ML, Thiamine 200 MG, Chromium/Copper/Mang/Selen/Zn 1 ML in... IV SCH ×4 (16:00)
[2019-08-09] MEDS: cefOXitin 2 GM in Sodium Chloride 0.9% 50 ML IV SCH ×2 (17:12→23:55)
[2019-08-09] MEDS: Acetaminophen 325 MG Tab PO SCH ×2 (17:16→21:16)
[2019-08-09] MEDS: Dextrose 5%-Lactated Ringers 1,000 ML IV SCH ×2 (18:06→23:53)
[2019-08-09] MEDS: Heparin Sodium 5,000 Units/ML Vial SUBCUT SCH (20:12)
[2019-08-09] MEDS: traZODone 50 MG Tab PO SCH (20:12)
[2019-08-10] MEDS: Ondansetron 4 MG/2 ML SDV IVPUSH PRN ×2 (00:09→09:07)
[2019-08-10] MEDS: tiZANidine 4 MG Tab PO PRN ×2 (00:10→20:15)
[2019-08-10] MEDS: Acetaminophen 325 MG Tab PO SCH ×4 (03:42→23:07)
[2019-08-10] MEDS ORDERED: Iopamidol 612 MG/ML 50 ML SDV IV ONE (04:00)
[2019-08-10] MEDS: cefOXitin 2 GM in Sodium Chloride 0.9% 50 ML IV SCH ×3 (05:08→17:07)
[2019-08-10] MEDS: Dextrose 5%-Lactated Ringers 1,000 ML IV SCH (06:31)
--- NOTE | 2019-08-10 06:46 | CRLCR ---
INDICATION: Evaluate Marjorie-en-Y gastric bypass. COMPARISON: 08/08/2019 CT abdomen and pelvis. FINDINGS/IMPRESSION: Oral contrast was given after which the abdominal radiographs were performed immediately and after a 15 minutes delay. Contrast passes through the distal esophagus, gastric pouch and gastrojejunal anastomosis into the jejunum. No leak is identified. No obstruction is evident. Right upper quadrant cholecystectomy clips are seen and there are postoperative changes involving the lower lumbar spine and right sacroiliac joint. Dictated by Miguel Wagner MD @ 08/10/2019 6:44:12 AM Dictated by: Miguel Wagner MD @ 08/10/2019 06:44:32 (Electronically Signed)
[2019-08-10] MEDS ORDERED: Ondansetron 4 MG Tab.DIS PO PRN (07:51)
[2019-08-10] MEDS ORDERED: Lactated Ringers 500 ML IV ONE (08:00)
[2019-08-10] MEDS: Heparin Sodium 5,000 Units/ML Vial SUBCUT SCH ×2 (08:18→20:15)
[2019-08-10] MEDS: HYDROmorphone 2 MG Tab PO PRN ×2 (08:18→15:28)
[2019-08-10] MEDS: Estradiol 0.5 MG Tab PO SCH (08:18)
--- NOTE | 2019-08-10 08:25 | OR ---
DATE OF PROCEDURE: 08/09/2019 SURGEON: Eliazar Perez MD PREOPERATIVE DIAGNOSIS: Partial small bowel obstruction. POSTOPERATIVE DIAGNOSES: 1. Partial small bowel obstruction associated with small bowel volvulus and edema and narrowing of jejunojejunostomy. 2. Pre-existing intraperitoneal mesh and high risk for adhesion formation to the underlying small bowel. OPERATIVE PROCEDURES: 1. Exploratory laparotomy with: a. Reduction of small bowel volvulus and closure of internal hernia (56415). b. Small bowel resection (18975). c. Secondary enteroenterostomy for reestablishment of Marjorie-en-Y small bowel anatomy (10481). d. Placement of Interceed mesh to limit recurrent adhesion formation between intraperitoneal mesh as well as pelvic and abdominal waldrop to underlying small bowel (31192). ANESTHESIA: General. HEALTH CARE COACH: Clementina Anna PA-C. INDICATION FOR PROCEDURE: The patient presents with postprandial upper abdominal pain. CT scan was obtained yesterday which showed swelling of small bowel mesentery consistent with small bowel volvulus. Plan is to proceed with limited laparotomy with reduction of volvulus and small bowel resection as indicated. This will be assessed by going through some pre- existing intraperitoneal mesh. The plan will be to most likely leave that mesh in place but wall it off with some antibiotic-containing material and limit exposure to any instruments or gloves that might be contaminated if the small bowel resection is required. Otherwise, potential risks of procedure including bleeding, infection, injury to underlying viscera, problems with bowel obstruction, recurring leaks from various GI tract closures that might occur as well as mesh becoming infected as outlined above, were all reviewed, and the patient wishes to proceed. DETAILS OF PROCEDURE: The patient was taken to the operating room and placed in a supine position. After general endotracheal anesthesia was induced, a Arechiga catheter was inserted, and the abdomen prepped and draped. From the umbilicus, roughly a handsbreadth toward the xiphoid, a vertical incision was made and carried down through the skin and subcutaneous tissue. The underlying mesh was then encountered and divided to the length of the incision. There were some scattered adhesions underneath this area which were taken down with electrocautery. The exploration of the small bowel, large portion of this had a syed, dusky appearance to it consistent with some venous hypertension typical of a volvulus. The patient was noted to have an extensive volvulus involving perhaps half of the volume of the small bowel having prolapsed from a right to left direction underneath the leaves of the jejunojejunostomy. This was eventually reduced and an inspection of the jejunojejunostomy at that point appeared to be markedly edematous and had some submucosal hemorrhage and as such it was felt to be at high risk for getting a stenosis and such. Given this, the decision was made to proceed with resection and reconstruction of that jejunojejunostomy. The edges of the wound were then packed with meropenem and Zyvox containing saline-soaked gauzes and the resection was then began with division of the Marjorie limb, biliopancreatic limb, and common limb adjacent to the anastomosis with ORALIA staplers and mesenteric likewise divided with the ORALIA aman. After resection of this, GI tract continuity was initially established with anastomosis between what had been the end of the Marjorie limb to the common limb with a [id number] enteroenterostomy with internal firing of 60 mm stapler. Common opening was then closed transversely with the same stapler and the angles of anastomosis were reinforced with some 3-0 silk stitch. The mesenteric defect was closed with 2-0 silk stitch. The small bowel Marjorie-en-Y anatomy was then reestablished with anastomosis between the end of the biliopancreatic limb to the small bowel roughly 20 cm distal to the first anastomosis with the same sequence of aman. The angles anastomosed likewise reinforced with 3-0 Vicryl stitch and again the mesenteric closed with a 2-0 silk stitch the latter being used to provide more in the way of permanency for the closure of the mesenteric defect and to prevent recurrent hernia formation. At this point, no further problems noted. There was no omentum available to bring down into the area of the mesh in the lower abdomen and pelvis. Given this, intercede mesh was placed across those areas initially and at that point all the instruments that had been used as well as gloves during the small-bowel resection had been discarded and closing jensen was initiated after changing the gloves. The area then once again irrigated with meropenem and Zyvox containing saline solution. The mesh was then affixed initially with a running 0 Prolene stitch. Over this, the fascia was closed with a running #2 Vicryl stitch, the subcutaneous tissue was then closed with 2 layers of 2-0 and 3- 0 Vicryl stitch deep and aman for the skin. Bilateral transversus abdominis plane blocks had also been placed and the wound was anesthetized with 0.5% Marcaine mixed with lidocaine after the aman had been placed. Dressing was applied. The patient was taken to the recovery room in satisfactory condition. Physician early childhood assistant, Clementina Anna, played an essential role in assisting in this case, helping to position the patient, retract structures as needed, as well as suturing and cutting sutures when indicated. Her presence improved patient safety and decreased the operative time. Eliazar Perez MD /[id number]
[2019-08-10] MEDS: SCOPOLAMINE PATCH CHECK TOP SCH (09:19)
--- NOTE | 2019-08-10 10:49 | PN ---
DATE OF SERVICE: 08/10/2019 SUBJECTIVE: Chelsea is postop day 1. Her pain has been controlled. She requested that the Arechiga catheter be removed and it was removed around 12:30. Her total output since surgery was 425. Chelsea thinks that she will be able to urinate in a couple of hours. REVIEW OF SYSTEMS: Remainder of review of systems negative for any pertinent positives and negatives. OBJECTIVE: GENERAL: Chelsea Vigil is a 53-year-old female. She is alert and orientated. Color pale. VITAL SIGNS: TPR . Blood pressure 113/63. HEENT: Negative. NECK: Supple. HEART: Regular rate and rhythm. LUNGS: Clear. ABDOMEN: Dressings dry and intact. Abdominal binder is on. EXTREMITIES: Without peripheral edema. ASSESSMENT: Exploratory laparotomy with: 1. Reduction of small bowel volvulus and closure of internal hernia. 2. Small bowel resection. 3. Secondary enterotomy for re-establishment of the Marjorie-en-Y small bowel anatomy. 4. Placement of Interceed mesh to limit recurrent adhesion formation between intraperitoneal mesh as well as pelvic and abdominal wall to underlining small bowel. Date of surgery, 08/09/2019. Surgeon, Eliazar Perez MD. PLAN: 1. Decrease IV to 100 mL/hour at noon. 2. Step 2 gastric bypass diet. 3. Give 500 mL lactated Ringer bolus. Discontinue Dilaudid IV. 4. Dilaudid 2 mg 1 to 2 every 4 hours p.r.n. pain. 5. Good pulmonary toilet. 6. We will evaluate p.r.n. or in a.m. If no voiding by 12:30, to call me. We may need to put the Arechiga catheter back in. Clementina Anna PA-C /[id number]
[2019-08-10] MEDS ORDERED: Dextrose 5%-Lactated Ringers 1,000 ML IV SCH (12:00)
[2019-08-10] MEDS: Lidocaine 0.4%/D5W 2 GM/500 ML BAG IV SCH (14:49)
[2019-08-10] MEDS ORDERED: MVI, Adult with Vitamin K 10 ML, Thiamine 200 MG, Chromium/Copper/Mang/Selen/Zn 1 ML in... IV SCH ×4 (16:00)
[2019-08-10] MEDS: Pantoprazole 40 MG Delayed-Release Granules 1 Packet PO SCH (17:10)
[2019-08-10] MEDS: traZODone 50 MG Tab PO SCH (20:15)
[2019-08-11] MEDS: HYDROmorphone 2 MG Tab PO PRN ×4 (03:04→20:17)
[2019-08-11] MEDS: Acetaminophen 325 MG Tab PO SCH ×4 (03:04→22:24)
[2019-08-11] MEDS: Ondansetron 4 MG/2 ML SDV IVPUSH PRN (03:28)
[2019-08-11] MEDS: Estradiol 0.5 MG Tab PO SCH (08:10)
[2019-08-11] MEDS: SCOPOLAMINE PATCH CHECK TOP SCH (08:10)
[2019-08-11] MEDS: Heparin Sodium 5,000 Units/ML Vial SUBCUT SCH ×2 (08:11→20:19)
[2019-08-11] MEDS ORDERED: Magnesium Hydroxide 400 MG/5 ML Susp 30 ML Cup PO ONE (08:30)
[2019-08-11] MEDS ORDERED: Cyanocobalamin (Vitamin B12) 1,000 MCG/ML SDV IM ONE (09:00)
[2019-08-11] MEDS ORDERED: Bisacodyl 5 MG Tab PO ONE (09:30)
--- NOTE | 2019-08-11 11:08 | PN ---
DATE OF SERVICE: 08/11/2019 SUBJECTIVE: Chelsea is postop day 2. Her oral intake is decreased at 540. She states that she just does not like any of the food she is getting. She is on a step 2 diet. She has been up ambulating. Vital signs have been stable. Remainder of review of systems negative for any pertinent positives and negatives. OBJECTIVE: GENERAL: Chelsea Vigil is a 53-year-old female. VITAL SIGNS: TPR is 97.6, 70, 16. Blood pressure 132/74. HEENT: Negative. NECK: Supple. HEART: Regular rate and rhythm. LUNGS: Clear. ABDOMEN: Aquacel dressings and binders on. EXTREMITIES: Without peripheral edema. ASSESSMENT: Exploratory laparotomy with: 1. Reduction of small bowel volvulus and closure of internal hernia. 2. Small bowel resection. 3. Secondary enterotomy for reestablishment of the Marjorie-en-Y small bowel anatomy. 4. Placement of Interceed mesh to limit recurrent adhesion formation between intraperitoneal mesh as well as pelvic and abdominal wall to underlining small bowel. Date of surgery, 08/09/2019. Surgeon, Eliazar Perez MD. PLAN: 1. Protein supplements between meals and at bedtime. 2. Milk of magnesia 30 mL. 3. Dulcolax 2 tablets 1 hour after milk of magnesia. 4. Encouraged to increase oral intake. No straw as that could be giving her pressure on her chest when she swallows. 5. We will evaluate p.r.n. or in a.m. 6. Plan discharge in a.m. Clementina Anna PA-C /[id number]
[2019-08-11] MEDS ORDERED: Metoclopramide 10 MG Tab PO PRN (13:10)
[2019-08-11] MEDS ORDERED: diphenhydrAMINE 25 MG Cap PO PRN (13:10)
[2019-08-11] MEDS: Pantoprazole 40 MG Delayed-Release Granules 1 Packet PO SCH (16:15)
[2019-08-11] MEDS: tiZANidine 4 MG Tab PO PRN (20:17)
[2019-08-11] MEDS: traZODone 50 MG Tab PO SCH (20:17)
[2019-08-12] MEDS: Acetaminophen 325 MG Tab PO SCH ×2 (03:39→09:30)
[2019-08-12 07:52] VITALS: BP 129/73; PULSE 65
[2019-08-12] MEDS: Heparin Sodium 5,000 Units/ML Vial SUBCUT SCH (07:59)
[2019-08-12] MEDS: Estradiol 0.5 MG Tab PO SCH (08:00)
[2019-08-12] MEDS: HYDROmorphone 2 MG Tab PO PRN (09:30)
--- NOTE | 2019-08-12 11:30 | DISCH ---
ADMISSION DIAGNOSES: 1. Partial small bowel obstruction. 2. Status post Marjorie-en-Y gastric bypass surgery. 3. Unspecified surgical malabsorption. 4. B12 deficiency. 5. Chronic diarrhea. 6. Recent SI joint surgery. 7. Adhesive arachnoiditis. 8. Allergic rhinitis. 9. Bursitis. 10.Celiac disease. 11.Chronic low back pain. 12.Degenerative joint disease. 13.Glaucoma. DISCHARGE DIAGNOSES: Exploratory laparotomy with: 1. Reduction of small bowel volvulus and closure of internal hernia. 2. Small-bowel resection. 3. Secondary enterostomy for re-establishment of the Marjorie-en-Y small bowel anatomy. 4. Placement of Interceed mesh to limit recurrent adhesion formation between intraperitoneal mesh as well as a pelvic and abdominal waldrop to underlining small bowel. POSTOPERATIVE DIAGNOSES: 1. Partial small bowel obstruction associated with small bowel volvulus and edema and narrowing of the jejunojejunostomy. 2. Pre-existing intraabdominal mesh and high risk for adhesion formation to the underlying small bowel. Date of surgery: 08/09/2019. Surgeon: Eliazar Perez MD. HISTORY: Zaria Vigil presented with postprandial upper abdominal pain. CT showed swelling of the small bowel mesentery consistent with small bowel volvulus. After preoperative evaluation and discussion of possible risks and possible complications, she wished to proceed with surgical procedure. HOSPITAL COURSE: Zaria had her surgery on 08/09/2019. On 08/10/2019, she was started on a step 2 gastric bypass diet with no cereal. She was given lactated Ringer bolus for decreased urinary output, started on oral Dilaudid, and her IV was decreased to 100. On postoperative day #2, oral intake was encouraged. She was given bowel stimulation. Her pain was well managed. Her activity was good. Vital signs were stable. On postoperative day #3, she was able to be discharged to home without any complications. Last bowel movement was on day of discharge. PHYSICAL EXAMINATION: GENERAL: Zaria Vigil is a 53-year-old female, alert, orientated, color pale. VITAL SIGNS: Height 5 feet 4 inches, weight is 183 pounds. TPR is 97.2, 65, 18, blood pressure 129/73. HEENT: Negative. NECK: Supple. HEART: Regular rate and rhythm. LUNGS: Clear. ABDOMEN: Lisa intact. Abdominal binder is on. EXTREMITIES: Without peripheral edema. DISPOSITION: Discharged to home. CONDITION: Stable and improving. FOLLOWUP APPOINTMENTS: With Clementina Anna PA-C, on 08/21/2019 at 11:00 a.m. HOME MEDICATIONS: 1. Tylenol 650 mg q.6 hours p.r.n. pain. 2. Dilaudid 2 mg every 4 hours p.r.n. pain #42. To resume home medications: 1. Biotin 08521 mcg oral daily. 2. Calcium with vitamin D one oral daily. 3. Vitamin D3 5000 units oral daily. 4. B12 250 mcg sublingual daily. 5. Estrace 0.5 mg oral daily. 6. Folic acid 1 mg oral daily. 7. Levsin 0.125 mg oral every 4 hours p.r.n. esophageal spasms. 8. Claritin 10 mg oral daily. 9. Multivitamin Flintstones one tablet twice daily. 10.Omeprazole 40 mg oral. 11.Zofran 4 mg oral every 4 hours p.r.n. nausea. 12.Probiotic 500 mg oral twice daily. 13.Vitamin B complex 1 tablet at bedtime. 14.Tizanidine 8 mg oral at bedtime p.r.n. muscle spasms. 15.Trazodone 50 mg at bedtime. DIET: Step 2 gastric bypass diet without cereal until after first postoperative appointment. Drink 8 to 10 glasses of water a day. ACTIVITY: No lifting greater than 10 pounds for 6 weeks. Other activity: Walk at least 6 times daily inside your home. Driving: Do not drive for 1 week and while on pain medication. Shower/bathing: May shower. DISCHARGE INSTRUCTIONS: Notify provider if any fever, increased pain, nausea, or vomiting. Keep site clean and dry. Wear abdominal binder for 6 weeks and then as tolerated. Use incentive spirometer 10 times every hour while awake.
== END 2019-08-12 10:48 | disposition home or self-care (01) | DRG 220 ==
LOC: JP.SDS 09:20 → JP.SDSSCHI 09:20 → EDSTATUS 11:15 → JP.2SS 14:15
PROVIDERS: ADMIT Surgery; ATTEND Surgery
PROC: 0D160ZA Bypass Stomach to Jejunum, Open Approach (ICD-10-PCS; principal; 2019-08-09)
PROC: 0DS80ZZ Reposition Small Intestine, Open Approach (ICD-10-PCS; 2019-08-09)
PROC: 3E0M05Z Introduction of Adhesion Barrier into Peritoneal Cavity, Open Approach (ICD-10-PCS; 2019-08-09)
PROC: 0DB80ZZ Excision of Small Intestine, Open Approach (ICD-10-PCS; 2019-08-09)
DX: K94.13 Enterostomy malfunction (principal); K56.2 Volvulus; E53.8 Deficiency of other specified B group vitamins; G03.8 Meningitis due to other specified causes; J30.9 Allergic rhinitis, unspecified; M71.9 Bursopathy, unspecified; G89.29 Other chronic pain; K91.2 Postsurgical malabsorption, not elsewhere classified; M54.5 Low back pain; M19.90 Unspecified osteoarthritis, unspecified site; H40.9 Unspecified glaucoma; M50.30 Other cervical disc degeneration, unspecified cervical region; K52.9 Noninfective gastroenteritis and colitis, unspecified; M51.16 Intervertebral disc disorders with radiculopathy, lumbar region; G47.00 Insomnia, unspecified; M17.10 Unilateral primary osteoarthritis, unspecified knee; M81.0 Age-related osteoporosis without current pathological fracture; G47.30 Sleep apnea, unspecified; E53.9 Vitamin B deficiency, unspecified; Z79.899 Other long term (current) drug therapy; Z87.81 Personal history of (healed) traumatic fracture; Z79.891 Long term (current) use of opiate analgesic; Z90.49 Acquired absence of other specified parts of digestive tract; Z98.1 Arthrodesis status; Z98.51 Tubal ligation status; Z98.84 Bariatric surgery status; Z68.31 Body mass index [BMI] 31.0-31.9, adult
CPT/HCPCS: 74240; 88307; A9270-GY; C9113; J0171; J0330; J0694; J1100; J1644; J2001; J2020; J2185; J2405; J2704; J2710; J2795; J3010; J3410; J3411; J3420; J3490; J7042; J7050; J7120; Q9967

== ENCOUNTER 2019-08-25 22:00 | Inpatient (IN) | payer BC ==
[2019-08-25] MEDS ORDERED: HYDROmorphone 0.5 MG/0.5 ML Syringe IVPUSH ONE (22:31)
[2019-08-25] MEDS ORDERED: Ondansetron 4 MG/2 ML SDV IVPUSH ONE (22:31)
--- NOTE | 2019-08-25 22:36 | EDM.PDOC ---
ED HPI GENERAL MEDICAL PROBLEM - General Chief Complaint: Abdominal Pain Stated Complaint: ABDOMINAL PAIN Time Seen by Provider: 08/25/19 22:33 Source of Information: Reports: Patient History Limitations: Reports: No Limitations - History of Present Illness INITIAL COMMENTS - FREE TEXT/NARRATIVE: pt arrived with pain in mid abdoman. She had a bowel obstruction about 2 weeks ago and she had surgery. She is nauseated but has not vomited. She has had regular bms. Onset: Other ( started quite severe yesterday. ) Duration: Hour(s): Location: Reports: Abdomen, Other (pt had a rny about 2 years ago. ) Quality: Reports: Sharp, Stabbing Left Abdomen Pain Score (Numeric/FACES): 10 - Related Data Allergies Allergy/AdvReac Type Severity Reaction Status Date / Time meropenem [From Merrem] Allergy Intermediate Redness Verified 08/27/19 14:59 chlorhexidine Allergy Rash Verified 08/08/19 15:37 hydrocodone Allergy Itching Verified 08/08/19 15:37 water for injection,sterile Allergy Cannot Verified 08/08/19 15:37 [From Reclast] Remember zoledronic acid Allergy Cannot Verified 08/08/19 15:37 [From Reclast] Remember amoxicillin [Amoxicillin] AdvReac Vomiting Verified 08/09/19 14:23 benzoin AdvReac Blisters Verified 08/09/19 14:23 ciprofloxacin AdvReac Nausea and Verified 08/09/19 14:23 Vomiting clavulanic acid AdvReac Nausea and Verified 08/09/19 14:23 [From Augmentin] Vomiting doxycycline AdvReac Nausea and Verified 08/09/19 14:23 Vomiting mannitol [From Reclast] AdvReac Nausea and Verified 08/09/19 14:23 Vomiting pantoprazole AdvReac Diarrhea Verified 08/28/19 15:47 adhesive tape Allergy Rash Uncoded 12/24/18 06:23 Home Meds: Home Meds Estradiol [Estrace] 0.5 mg PO DAILY 09/24/14 [History] Loratadine [Claritin] 10 mg PO DAILY 09/24/14 [History] Cholecalciferol (Vitamin D3) [Vitamin D] 5,000 units PO DAILY 09/25/14 [History] Folic Acid 1 mg PO DAILY 12/27/16 [History] Biotin 10,000 mg PO DAILY 12/29/16 [History] Vitamin B Complex [B Complex] 1 tab PO BEDTIME 06/28/17 [History] Multivitamin [Flintstones] 2 tab PO BID 06/30/17 [History] Calcium Carb/Magnesium Oxid/D3 [Calcium Magnesium + D] 1 each PO DAILY 03/28/18 [History] Hyoscyamine [Levsin] 0.125 mg PO Q4HR PRN 12/21/18 [History] Ondansetron [Zofran ODT] 4 mg PO Q4H PRN 12/21/18 [History] Cyanocobalamin (Vitamin B-12) [Vitamin B-12] 2,500 mcg SL DAILY 12/24/18 [ History] Acetaminophen [Tylenol] 650 mg PO Q6H tablet 12/26/18 [Rx] Omeprazole 40 mg PO BID 08/08/19 [History] Saccharomyces Boulardii [Probiotic] 500 mg PO BID 08/08/19 [History] traZODone HCl [Trazodone HCl] 50 mg PO BEDTIME 08/08/19 [History] Acetaminophen [Tylenol] 650 mg PO Q6H tablet 08/12/19 [Rx] HYDROmorphone [Dilaudid] 2 mg PO Q4H PRN #42 tablet 08/12/19 [Rx] tiZANidine [Zanaflex] 2 tab PO DAILY 08/26/19 [History] Acetaminophen [Tylenol] 650 mg PO Q6H tablet 08/29/19 [Rx] HYDROmorphone [Dilaudid] 2 mg PO Q4H PRN #42 tablet 08/29/19 [Rx] Past Medical History HEENT History: Reports: Allergic Rhinitis, Glaucoma, Impaired Vision Other HEENT History: wears glasses Cardiovascular History: Reports: Arrhythmia Other Cardiovascular History: PVCs Respiratory History: Reports: Bronchitis, Recurrent Gastrointestinal History: Reports: Celiac Disease, Cholelithiasis, Gastritis, GERD, Hiatal Hernia Other Gastrointestinal History: celiac disease Genitourinary History: Reports: None 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: Endometriosis, Fibroids, Musculoskeletal History: Reports: Arthritis, Back Pain, Chronic, Fracture, Neck Pain, Chronic, Osteoarthritis, Osteoporosis Other Musculoskeletal History: fx right foot,ankle and wrist fx left toe, fusions lower back and neck Neurological History: Reports: None Psychiatric History: Reports: None Endocrine/Metabolic History: Reports: Obesity/BMI 30+, Vitamin D Deficiency Hematologic History: Reports: Anemia, B12 Deficiency, Folic Acid, Iron Deficiency Immunologic History: Reports: None Oncologic (Cancer) History: Reports: None Dermatologic History: Reports: Other (See Below) Other Dermatologic History: "sensitive skin" - Infectious Disease History Infectious Disease History: Reports: Chicken Pox - Past Surgical History Head Surgeries/Procedures: Reports: None HEENT Surgical History: Reports: Laser Surgery, Oral Surgery, Tonsillectomy Cardiovascular Surgical History: Reports: None Respiratory Surgical History: Reports: None GI Surgical History: Reports: Bariatric Procedure, Cholecystectomy, Colonoscopy , EGD, Esophageal Dilatation, Small Bowel Other GI Surgeries/Procedures: resection Female Surgical History: Reports: Breast Biopsy, Hysterectomy, Salpingo- Oophorectomy, Tubal Ligation Endocrine Surgical History: Reports: None Neurological Surgical History: Reports: C-Spine, Discectomy, Laminectomy, Lumbar Spine, Scoliosis, Spinal Fusion Musculoskeletal Surgical History: Reports: Arthroscopic Knee, Arthroscopic Procedure, Ganglion Cyst, Joint Replacement, Knee Replacement Other Musculoskeletal Surgeries/Procedures:: bilateral knee-total Oncologic Surgical History: Reports: Biopsy of Breast Dermatological Surgical History: Reports: None Social & Family History - Family History Family Medical History: Noncontributory HEENT: Reports: Allergic Rhinitis, Glaucoma, Impaired Vision Cardiac: Reports: Afib, GA, Stent Respiratory: Reports: Asthma, COPD : Reports: Renal Calculus OBGYN: Reports: Endometriosis, Fibroids Musculoskeletal: Reports: Arthritis, Back pain, Chronic, Neck Pain, Chronic Neurological: Reports: Migraines Hematologic: Reports: Other (See Below) Other Hematologic Family History: unknown type of thrombocytopenia Dermatologic: Reports: Eczema Oncologic: Reports: Lung - Tobacco Use Smoking Status *Q: Former Smoker Used Tobacco, but Quit: Yes Month/Year Tobacco Last Used: unk - Caffeine Use Caffeine Use: Reports: Coffee Caffeine Use Comment: 1 cup per day - Recreational Drug Use Recreational Drug Use: No ED ROS GENERAL - Review of Systems Review Of Systems: See Below Constitutional: Reports: Decreased Appetite HEENT: Reports: No Symptoms Respiratory: Reports: No Symptoms Cardiovascular: Reports: No Symptoms Endocrine: Reports: No Symptoms GI/Abdominal: Reports: Abdominal Pain, Nausea : Reports: No Symptoms Musculoskeletal: Reports: No Symptoms Skin: Reports: No Symptoms Neurological: Reports: No Symptoms ED EXAM, GI/ABD - Physical Exam Exam: See Below Text/Narrative:: pt arrived with pain in the mid abdoman, She is rating the pain a 10. She is nauseated but has not vomited. She had surgery for a bowel obstruction about 2 weeks ago. This feels the same. She had a RNY about 2 years ago. Exam Limited By: No Limitations General Appearance: Alert, Anxious, Severe Distress, Other ( she is rating her pain at a ten. ) Ears: Normal TMs Nose: Normal Inspection Throat/Mouth: Normal Inspection Head: Atraumatic Neck: Normal Inspection Respiratory/Chest: No Respiratory Distress Cardiovascular: Regular Rate, Rhythm GI/Abdominal Exam: Other (pt has good looking wounds, She is tender in the left lower abdoman and she is tender in the umbilical area. ) (Female) Exam: Deferred Rectal (Female) Exam: Deferred Back Exam: Normal Inspection Extremities: Normal Inspection Neurological: Alert, Oriented, Normal Cognition Psychiatric: Normal Affect, Anxious, Other ( very uncomfortable at this time. ) Course - Vital Signs Last Recorded V/S: Last Vital Signs Temp 35.8 C 08/29/19 02:36 Pulse 63 08/29/19 02:36 Resp 16 08/29/19 02:36 BP 98/54 L 08/29/19 02:36 Pulse Ox 95 08/29/19 02:36 - Orders/Labs/Meds Orders: Medication Orders Acetaminophen (Tylenol) 650 mg PO Q6H [facility] Last Admin: 08/29/19 02:32 Dose: 650 mg Admin: 08/28/19 19:53 Dose: 650 mg Admin: 08/28/19 14:28 Dose: 650 mg Admin: 08/28/19 07:48 Dose: 650 mg Admin: 08/28/19 02:37 Dose: 650 mg Admin: 08/27/19 19:37 Dose: 650 mg Admin: 08/27/19 13:43 Dose: 650 mg Admin: 08/27/19 08:06 Dose: 650 mg Admin: 08/27/19 01:58 Dose: 650 mg Admin: 08/26/19 20:04 Dose: 650 mg Admin: 08/26/19 14:18 Dose: 650 mg Diphenhydramine HCl (Benadryl) 25 - 50 mg PO Q4H PRN PRN Reason: Itching Last Admin: 08/28/19 02:36 Dose: 50 mg Admin: 08/27/19 15:26 Dose: 50 mg Estradiol (Estradiol) 0.5 mg PO DAILY [facility] Last Admin: 08/28/19 08:37 Dose: 0.5 mg Admin: 08/27/19 09:08 Dose: 0.5 mg Hydromorphone HCl (Dilaudid) 2 - 4 mg PO Q4H PRN PRN Reason: Pain Last Admin: 08/29/19 02:34 Dose: 2 mg Admin: 08/28/19 19:54 Dose: 2 mg Admin: 08/28/19 14:31 Dose: 4 mg Admin: 08/28/19 07:47 Dose: 4 mg Hydroxyzine HCl (Vistaril) 100 mg IM Q4H PRN PRN Reason: pain Loratadine (Claritin) 10 mg PO DAILY PRN PRN Reason: ALLERGIES Last Admin: 08/28/19 05:05 Dose: 10 mg Magnesium Oxide (Magnesium Oxide) 400 mg PO DAILY [facility] Omeprazole (Omeprazole) 20 mg PO Q24H [facility] Last Admin: 08/28/19 17:19 Dose: 20 mg Tizanidine HCl (Zanaflex) 4 mg PO BEDTIME [facility] Last Admin: 08/28/19 20:57 Dose: 4 mg Admin: 08/27/19 20:12 Dose: 4 mg Trazodone HCl (Trazodone) 50 mg PO BEDTIME [facility] Last Admin: 08/28/19 20:57 Dose: 50 mg Admin: 08/27/19 20:12 Dose: 50 mg Admin: 08/26/19 20:05 Dose: 50 mg Labs: Laboratory Tests 08/25/19 08/25/19 08/25/19 Range/Units 22:43 22:43 22:43 WBC 6.6 (4.5-11.0) K/uL RBC 4.31 (3.30-5.50) M/uL Hgb 13.2 (12.0-15.0) g/dL Hct 40.6 (36.0-48.0) % MCV 94 (80-98) fL MCH 31 (27-31) pg MCHC 33 (32-36) % Plt Count 397 (150-400) K/uL Neut % (Auto) 62 (36-66) % Lymph % (Auto) 28 (24-44) % Barnwell % (Auto) 7 H (2-6) % Eos % (Auto) 3 (2-4) % Baso % (Auto) 1 (0-1) % Sodium 141 (140-148) mmol/L Potassium 3.6 (3.6-5.2) mmol/L Chloride 103 (100-108) mmol/L Carbon Dioxide 29 (21-32) mmol/L Anion Gap 8.8 (5.0-14.0) mmol/L BUN 10 (7-18) mg/dL Creatinine 0.7 (0.6-1.0) mg/dL Est Cr Clr Drug Dosing 79.34 mL/min Estimated GFR (MDRD) > 60 (>60) Glucose 103 (74-106) mg/dL Calcium 9.5 (8.5-10.1) mg/dL Total Bilirubin 0.5 (0.2-1.0) mg/dL AST 22 (15-37) U/L ALT 39 (12-78) U/L Alkaline Phosphatase 136 H (46-116) U/L C-Reactive Protein 0.17 (0.0-0.3) mg/dL Total Protein 7.3 (6.4-8.2) g/dL Albumin 4.2 (3.4-5.0) g/dL Globulin 3.1 (2.3-3.5) g/dL Albumin/Globulin Ratio 1.4 (1.2-2.2) Lipase 154 (73-393) U/L Urine Color (YELLOW) Urine Appearance (CLEAR) Urine pH (5.0-8.0) Ur Specific Lewis (1.008-1.030) Urine Protein (NEGATIVE) mg/dL Urine Glucose (UA) (NEGATIVE) mg/dL Urine Ketones (NEGATIVE) mg/dL Urine Occult Blood (NEGATIVE) Urine Nitrite (NEGATIVE) Urine Bilirubin (NEGATIVE) Urine Urobilinogen (0.2-1.0) EU/dL Ur Leukocyte Esterase (NEGATIVE) Urine RBC (0-5) Urine WBC (0-5) Ur Epithelial Cells Amorphous Sediment Urine Bacteria Urine Mucus 08/26/19 Range/Units 00:36 WBC (4.5-11.0) K/uL RBC (3.30-5.50) M/uL Hgb (12.0-15.0) g/dL Hct (36.0-48.0) % MCV (80-98) fL MCH (27-31) pg MCHC (32-36) % Plt Count (150-400) K/uL Neut % (Auto) (36-66) % Lymph % (Auto) (24-44) % Barnwell % (Auto) (2-6) % Eos % (Auto) (2-4) % Baso % (Auto) (0-1) % Sodium (140-148) mmol/L Potassium (3.6-5.2) mmol/L Chloride (100-108) mmol/L Carbon Dioxide (21-32) mmol/L Anion Gap (5.0-14.0) mmol/L BUN (7-18) mg/dL Creatinine (0.6-1.0) mg/dL Est Cr Clr Drug Dosing mL/min Estimated GFR (MDRD) (>60) Glucose (74-106) mg/dL Calcium (8.5-10.1) mg/dL Total Bilirubin (0.2-1.0) mg/dL AST (15-37) U/L ALT (12-78) U/L Alkaline Phosphatase (46-116) U/L C-Reactive Protein (0.0-0.3) mg/dL Total Protein (6.4-8.2) g/dL Albumin (3.4-5.0) g/dL Globulin (2.3-3.5) g/dL Albumin/Globulin Ratio (1.2-2.2) Lipase (73-393) U/L Urine Color Yellow (YELLOW) Urine Appearance Clear (CLEAR) Urine pH 6.5 (5.0-8.0) Ur Specific Lewis 1.010 (1.008-1.030) Urine Protein Negative (NEGATIVE) mg/dL Urine Glucose (UA) Negative (NEGATIVE) mg/dL Urine Ketones Negative (NEGATIVE) mg/dL Urine Occult Blood Negative (NEGATIVE) Urine Nitrite Negative (NEGATIVE) Urine Bilirubin Negative (NEGATIVE) Urine Urobilinogen 0.2 (0.2-1.0) EU/dL Ur Leukocyte Esterase Negative (NEGATIVE) Urine RBC 0-5 (0-5) Urine WBC 0-5 (0-5) Ur Epithelial Cells Few Amorphous Sediment Not seen Urine Bacteria Rare Urine Mucus Not seen Meds: Medications Generic Name Dose Route Start Last Admin Trade Name Freq PRN Reason Stop Dose Admin Acetaminophen 650 mg 10/07/19 14:00 08/29/19 02:32 Tylenol PO 650 mg Q6H SALINAS Administration Diphenhydramine HCl 25 - 50 mg 08/27/19 15:04 08/28/19 02:36 Benadryl PO 50 mg Q4H PRN Administration Itching Estradiol 0.5 mg 08/27/19 09:00 08/28/19 08:37 Estradiol PO 0.5 mg DAILY [facility]AS Administration Hydromorphone HCl 2 - 4 mg 08/28/19 07:09 08/29/19 02:34 Dilaudid PO 2 mg Q4H PRN Administration Pain Hydroxyzine HCl 100 mg 08/26/19 11:12 Vistaril IM Q4H PRN pain Loratadine 10 mg 08/26/19 11:19 08/28/19 05:05 Claritin PO 10 mg DAILY PRN Administration ALLERGIES Magnesium Oxide 400 mg 08/29/19 09:00 Magnesium Oxide PO DAILY [facility] Omeprazole 20 mg 08/28/19 16:00 08/28/19 17:19 Omeprazole PO 20 mg Q24H [facility]AS Administration Tizanidine HCl 4 mg 08/27/19 21:00 08/28/19 20:57 Zanaflex PO 4 mg BEDTIME [facility]AS Administration Trazodone HCl 50 mg 08/26/19 21:00 08/28/19 20:57 Trazodone PO 50 mg BEDTIME [facility]AS Administration Discontinued Medications Generic Name Dose Route Start Last Admin Trade Name Freq PRN Reason Stop Dose Admin Bisacodyl 20 mg 08/28/19 09:00 08/28/19 08:37 Dulcolax PO 08/28/19 09:01 20 mg ONETIME ONE Administration Bupivacaine HCl Confirm 08/26/19 07:40 08/26/19 08:26 Marcaine 0.5% Administered 08/26/19 07:41 20 ml Dose Administration 50 ml .ROUTE .STK-MED ONE Ropivacaine 42 ml/ 0 ml 08/26/19 08:00 08/26/19 08:09 Dexamethasone 8 mg/ NERVRT 80 syringe Epinephrine HCl 0.4 mg/ Sodium ASDIRECTED SALINAS Administration Chloride 35.6 ml Cyanocobalamin 1,000 mcg 08/28/19 09:00 08/28/19 11:14 Vitamin B12 IM 08/28/19 09:01 1,000 mcg ONETIME ONE Administration Dexamethasone Confirm 08/26/19 07:08 Dexamethasone Administered 08/26/19 07:09 Dose 4 mg .ROUTE .STK-MED ONE Fentanyl Confirm 08/26/19 07:07 Sublimaze Administered 08/26/19 07:08 Dose 250 mcg .ROUTE .STK-MED ONE Fentanyl 50 mcg 08/26/19 09:08 08/26/19 09:14 Sublimaze IVPUSH 08/26/19 09:09 50 mcg ONETIME ONE Administration Fentanyl 50 mcg 08/26/19 09:20 08/26/19 09:28 Sublimaze IVPUSH 08/26/19 09:21 50 mcg ONETIME ONE Administration Glycopyrrolate Confirm 08/26/19 07:08 Robinul Administered 08/26/19 07:09 Dose 1 mg .ROUTE .STK-MED ONE Hydromorphone HCl 0.5 mg 08/25/19 22:31 08/25/19 22:43 Dilaudid IVPUSH 08/25/19 22:32 0.5 mg ONETIME ONE Administration Hydromorphone HCl 0.5 mg 08/26/19 00:42 08/26/19 00:52 Dilaudid IVPUSH 08/26/19 00:43 0.5 mg ONETIME ONE Administration Hydromorphone HCl 0 mg 08/26/19 01:21 08/28/19 02:35 Dilaudid Shelf Stocker 15 Mg In Ns 30 Ml IV 15 mg ASDIRECTED PRN Administration Pain Protocol Hydroxyzine HCl 100 mg 08/26/19 09:07 08/26/19 09:12 Vistaril IM 08/26/19 09:08 100 mg ONETIME ONE Administration Sodium Chloride 1,000 mls @ 999 mls/hr 08/25/19 22:45 08/25/19 22:43 Normal Saline IV 999 mls/hr ASDIRECTED SALINAS Administration Sodium Chloride 1,000 mls @ 999 mls/hr 08/25/19 23:30 Normal Saline IV ASDIRECTED SALINAS Sodium Chloride 76 mls @ 3.6 mls/sec 08/25/19 23:23 08/25/19 23:32 Normal Saline IV 08/25/19 23:24 3.6 mls/sec ASDIRECTED STA Administration Lactated Ringer's 1,000 mls @ 150 mls/hr 08/26/19 01:30 08/26/19 06:49 Ringers, Lactated IV 150 mls/hr ASDIRECTED SALINAS Administration Sodium Chloride Confirm 08/26/19 06:59 08/26/19 11:07 Normal Saline Administered 08/26/19 07:00 Not Given Dose 50 mls @ as directed .ROUTE .STK-MED ONE Lidocaine HCl/Dextrose 2 gm in 500 mls @ 15 mls/hr 08/26/19 08:00 08/27/19 16 :17 Lidocaine 2 Gm/D5w 500 Ml IV 08/27/19 17:19 Not Given .Q24H SALINAS 1 MG/MIN Ketamine HCl 50 mg/ Sodium 50 mls @ 16.2 mls/hr 08/26/19 08:00 Chloride IV ASDIRECTED SALINAS 5 MCG/KG/MIN Meropenem 500 mg/ Sodium 50 mls @ 100 mls/hr 08/26/19 07:30 08/26/19 07:07 Chloride IV 08/26/19 07:59 100 mls/hr ONETIME ONE Administration Linezolid Confirm 08/26/19 07:28 Zyvox Administered 08/26/19 07:29 Dose 300 mls @ as directed .ROUTE .STK-MED ONE Lactated Ringer's Confirm 08/26/19 08:05 Ringers, Lactated Administered 08/26/19 08:06 Dose 1,000 mls @ as directed .ROUTE .STK-MED ONE Dextrose/Lactated Ringer's 1,000 mls @ 175 mls/hr 08/26/19 11:15 08/27/19 04: 28 Dextrose 5%-Lactated Ringers IV 175 mls/hr ASDIRECTED SALINAS Administration Multivitamins/Minerals 10 ml/ 1,013 mls @ 175 mls/hr 08/26/19 16:00 08/26/19 16:43 Thiamine HCl 200 mg/ Chromium/ IV 175 mls/hr Copper/Manganese/Seleni/Zn 1 DAILY@1600 [facility]AS Administration ml/ Dextrose/Lactated Ringer's Meropenem 500 mg/ Sodium 50 mls @ 100 mls/hr 08/26/19 14:00 08/27/19 14:14 Chloride IV 08/27/19 14:29 100 mls/hr Q6H [facility] Administration Dextrose/Lactated Ringer's 1,000 mls @ 100 mls/hr 08/27/19 07:49 08/28/19 05: 06 Dextrose 5%-Lactated Ringers IV 100 mls/hr ASDIRECTED SALINAS Administration Multivitamins/Minerals 10 ml/ 1,013 mls @ 100 mls/hr 08/27/19 16:00 08/27/19 16:16 Thiamine HCl 200 mg/ Chromium/ IV 100 mls/hr Copper/Manganese/Seleni/Zn 1 DAILY@1600 SALINAS Administration ml/ Dextrose/Lactated Ringer's Magnesium Sulfate 2 gm/ Premix 50 mls @ 25 mls/hr 08/27/19 10:00 08/28/19 10: 47 IV 08/30/19 05:59 25 mls/hr Q6HR [facility] Administration Influenza Virus Vaccine 1 each 08/26/19 10:00 Pharmacy To Dose - Influenza Vaccine IM 08/26/19 10:01 ONETIME ONE Influenza Virus Vaccine 60 mcg 08/28/19 10:00 08/28/19 11:13 Fluzone Quad Syringe IM 08/28/19 10:01 60 mcg .ONCE ONE Administration Iopamidol 120 ml 08/25/19 23:22 08/25/19 23:32 Isovue-300 (61%) IV 08/25/19 23:23 150 ml . DIRECTED STA Administration Iopamidol 50 ml 08/27/19 02:04 08/27/19 04:05 Isovue-300 (61%) PO 08/27/19 02:05 50 ml ASDIRECTED ONE Administration Ketamine HCl 27 mg 08/26/19 08:00 Ketalar IV ASDIRECTED [facility]INAS Lidocaine HCl 100 mg 08/26/19 08:00 Xylocaine 2% IVPUSH ASDIRECTED SALINAS Lidocaine/Epinephrine Confirm 08/26/19 07:40 08/26/19 08:27 Xylocaine 1% With Epinephrine 1:100,000 Administered 08/26/19 07:41 20 ml Dose Administration 50 ml .ROUTE .STK-MED ONE Linezolid 600 mg 08/26/19 08:27 08/26/19 08:27 Zyvox IRR 08/26/19 08:28 600 mg .STK-MED ONE Administration Lorazepam 0.5 mg 08/26/19 10:00 08/26/19 10:03 Ativan IVPUSH 10/07/19 10:01 0.5 mg ONETIME ONE Administration Magnesium Hydroxide 30 ml 08/28/19 08:00 08/28/19 08:37 Milk Of Magnesia PO 08/28/19 08:01 30 ml ONETIME ONE Administration Meropenem Confirm 08/26/19 06:58 08/26/19 08:15 Merrem Administered 08/26/19 06:59 Not Given Dose 500 mg .ROUTE .STK-MED ONE Metoclopramide HCl 10 mg 08/26/19 11:12 08/26/19 20:15 Reglan IVPUSH 10 mg Q6H PRN Administration NAUSEA NOT CONTROL BY ZOFRAN Miscellaneous Information 1 ea 08/28/19 10:00 08/28/19 10:48 Remove Patch TRDERM 08/28/19 10:01 1 ea ONETIME ONE Administration Neostigmine Methylsulfate Confirm 08/26/19 07:08 Neostigmine Administered 08/26/19 07:09 Dose 5 mg .ROUTE .STK-MED ONE Scopolamine Patch 1 each 08/26/19 11:12 08/28/19 08:37 Check TOP 08/28/19 11:13 Not Given DAILY [facility] Ondansetron HCl 4 mg 08/25/19 22:31 08/25/19 22:43 Zofran IVPUSH 08/25/19 22:32 4 mg ONETIME ONE Administration Ondansetron HCl 4 mg 08/26/19 01:18 08/27/19 19:42 Zofran IV 4 mg Q4H PRN Administration Nausea/Vomiting Ondansetron HCl Confirm 08/26/19 07:08 Zofran Administered 08/26/19 07:09 Dose 4 mg .ROUTE .STK-MED ONE Ondansetron HCl 4 mg 08/26/19 09:33 08/26/19 09:37 Zofran IVPUSH 08/26/19 09:34 4 mg ONETIME ONE Administration Pantoprazole Sodium 40 mg 08/26/19 14:00 08/28/19 13:22 Protonix Iv IV Not Given Q24H [facility]AS Pantoprazole Sodium 40 mg 08/28/19 16:30 Protonix Granules PO Q24H [facility] Propofol Confirm 08/26/19 07:08 Diprivan 20 Ml Administered 08/26/19 07:09 Dose 200 mg .ROUTE .STK-MED ONE Rocuronium Chassell Confirm 08/26/19 07:08 Zemuron Administered 08/26/19 07:09 Dose 50 mg .ROUTE .STK-MED ONE Scopolamine 1.5 mg 08/26/19 12:00 08/26/19 12:43 Transderm-Scop TOP 08/28/19 10:00 1.5 mg Q72H [facility]AS Administration Succinylcholine Chloride Confirm 08/26/19 07:08 Quelicin Administered 08/26/19 07:09 Dose 200 mg .ROUTE .STK-MED ONE Tizanidine HCl 8 mg 08/26/19 11:18 08/26/19 20:11 Zanaflex PO 8 mg TID PRN Administration Muscle Spasm - Re-Assessments/Exams Free Text/Narrative Re-Assessment/Exam: 08/25/19 23:27 pt had a normal wbc and her crp was not elevated. She will have a cat scan of the abdoman to rule out a recurrent bowel obstruction. 08/26/19 01:10 cat scan reveals a probable small bowel obstruction. Dr Perez will bwe contacted. Departure - Departure Time of Disposition: 01:16 Disposition: Admitted As Inpatient 65 Condition: Fair Clinical Impression: Small bowel obstruction, Dehydration - Discharge Information
[2019-08-25] MEDS ORDERED: Sodium Chloride 0.9% 1,000 ML IV SCH ×2 (22:45→23:30)
[2019-08-25] MEDS ORDERED: Iopamidol 612 MG/ML 150 ML Bottle IV STA (23:22)
[2019-08-26] MEDS ORDERED: HYDROmorphone 0.5 MG/0.5 ML Syringe IVPUSH ONE (00:42)
--- NOTE | 2019-08-26 01:07 | CRLCT ---
INDICATION: Mid abdominal pain TECHNIQUE: CT abdomen and pelvis acquired without IV contrast although very little contrast was actually Mr. Due to IV abnormality. COMPARISON: 08/08/2019 FINDINGS: Lower chest: Unremarkable. Liver: Unremarkable. Spleen: Unremarkable. Pancreas: Unremarkable. Gallbladder and bile ducts: Cholecystectomy Kidneys: Unremarkable. Adrenal glands: Unremarkable. GI tract: Evidence of prior gastric bypass surgery. The proximal small bowel is distended with stool like material just proximal to anastomosis sutures and worrisome for bowel obstruction. Significant thickening of bowel loops just distal to the anastomosis suture versus collection. Vascular structures: Unremarkable. Lymph nodes: Unremarkable. Miscellaneous: Unremarkable. No free air or significant free fluid. Pelvic Organs: Unremarkable. Bones: Posterior spinal fixation hardware L3 through L5. IMPRESSION: The proximal small bowel is distended with stool like material up to a level just proximal to anastomosis sutures. Distal to the anastomosis sutures is a focal loop of possible thickened bowel versus collection. Findings discussed on 08/26/2019 at 1:[address] Bryan. Dictated by Kentrell Ivy MD @ 08/26/2019 1:06:30 AM Please note that all CT scans at this facility use dose modulation, iterative reconstruction, and/or weight-based dosing when appropriate to reduce radiation dose to as low as reasonably achievable. Dictated by: Kentrell Ivy MD @ 08/26/2019 01:06:52 (Electronically Signed)
[2019-08-26] MEDS ORDERED: Naloxone 0.4 MG/ML SDV IVPUSH PRN (01:21)
[2019-08-26] MEDS: Lactated Ringers 1,000 ML IV SCH ×2 (01:27→06:49)
[2019-08-26] MEDS: HYDROmorphone/Normal Saline 15 MG/30 ML PCA IV PRN (02:35)
[2019-08-26] MEDS: Ondansetron 4 MG/2 ML SDV IV PRN ×2 (03:17→18:18)
[2019-08-26] MEDS ORDERED: Sodium Chloride 0.9% 50 ML ONE (06:59)
[2019-08-26] MEDS ORDERED: fentaNYL 250 MCG/5 ML SDV ONE (07:07)
[2019-08-26] MEDS ORDERED: Neostigmine Methylsulfate 1 MG/ML 5 ML Syringe ONE (07:08)
[2019-08-26] MEDS ORDERED: Dexamethasone 4 MG/ML SDV ONE (07:08)
[2019-08-26] MEDS ORDERED: Succinylcholine 200 MG/10 ML MDV ONE (07:08)
[2019-08-26] MEDS ORDERED: Propofol 200 MG/20 ML SDV ONE (07:08)
[2019-08-26] MEDS ORDERED: Rocuronium 50 MG/5 ML Vial ONE (07:08)
[2019-08-26] MEDS ORDERED: Ondansetron 4 MG/2 ML SDV ONE (07:08)
[2019-08-26] MEDS ORDERED: Glycopyrrolate 0.2 MG/ML 5 ML MDV ONE (07:08)
[2019-08-26] MEDS: Meropenem 500 MG SDV ONE ×2 (07:09→08:15)
[2019-08-26] MEDS ORDERED: Meropenem 500 MG in Sodium Chloride 0.9% 50 ML IV ONE (07:30)
[2019-08-26] MEDS ORDERED: Bupivacaine 0.5% 50 ML MDV ONE (07:40)
[2019-08-26] MEDS ORDERED: Lidocaine 1% with EPINEPHrine 1:100,000 50 ML MDV ONE (07:40)
[2019-08-26] MEDS ORDERED: Ketamine 500 MG/5 ML MDV IV SCH (08:00)
[2019-08-26] MEDS ORDERED: Ketamine 50 MG in Sodium Chloride 0.9% 49.5 ML IV SCH (08:00)
[2019-08-26] MEDS ORDERED: Lidocaine 2% 100 MG/5 ML Syringe IVPUSH SCH (08:00)
[2019-08-26] MEDS ORDERED: Lactated Ringers 1,000 ML ONE (08:05)
[2019-08-26] MEDS ORDERED: hydrOXYzine HCl 100 MG/2 ML SDV IM ONE (09:07)
[2019-08-26] MEDS ORDERED: fentaNYL 100 MCG/2 ML SDV IVPUSH ONE ×2 (09:08→09:20)
--- NOTE | 2019-08-26 09:30 | PN ---
DATE OF SERVICE: 08/26/2019 SUBJECTIVE: Zaria Owens) is n.p.o. She will be the first case surgery. She has a bowel obstruction proximal to the anastomosis. Chelsea had partial small bowel obstruction with surgery approximately 2 weeks ago. She states her pain is controlled. She has no questions regarding the impending surgery. OBJECTIVE: GENERAL: Chelsea Vigil is a 53-year-old female, alert and orientated. VITAL SIGNS: TPR is 97.4, 74, 16. Blood pressure 108/68. HEART: Regular rate and rhythm. LUNGS: Clear. ABDOMEN: Generalized tenderness. EXTREMITIES: Without peripheral edema. ASSESSMENT: Partial small bowel obstruction. PLAN: 1. Orders to be written postoperatively. 2. We will evaluate p.r.n. or in a.m. Clementina Anna PA-C /[id number]
[2019-08-26] MEDS ORDERED: Ondansetron 4 MG/2 ML SDV IVPUSH ONE (09:33)
[2019-08-26] MEDS ORDERED: LORazepam 2 MG/ML SDV IVPUSH PRN (09:52)
[2019-08-26] MEDS ORDERED: LORazepam 2 MG/ML SDV IVPUSH ONE (10:00)
[2019-08-26] MEDS ORDERED: FLU Vacc QS2019-20(6MOS+)/PF 60 MCG/0.5 ML SYRINGE IM ONE (10:00)
[2019-08-26] MEDS: Lidocaine 0.4%/D5W 2 GM/500 ML BAG IV SCH ×2 (11:08→12:43)
[2019-08-26] MEDS ORDERED: Naloxone 0.4 MG/ML SDV IV PRN (11:11)
[2019-08-26] MEDS ORDERED: diphenhydrAMINE 50 MG/ML SDV IVPUSH PRN (11:12)
[2019-08-26] MEDS ORDERED: Labetalol 20 MG/4 ML Syringe IVPUSH PRN (11:12)
[2019-08-26] MEDS ORDERED: hydrOXYzine HCl 100 MG/2 ML SDV IM PRN (11:12)
[2019-08-26] MEDS ORDERED: Metoclopramide 10 MG/2 ML SDV IVPUSH PRN (11:12)
[2019-08-26] MEDS ORDERED: Loratadine 10 MG Tab PO PRN (11:19)
[2019-08-26] MEDS ORDERED: Scopolamine 1.5 MG Transdermal Patch TOP SCH (12:00)
[2019-08-26] MEDS: Dextrose 5%-Lactated Ringers 1,000 ML IV SCH ×2 (12:41→22:32)
[2019-08-26] MEDS: tiZANidine 4 MG Tab PO PRN ×2 (12:50→20:11)
[2019-08-26] MEDS: Acetaminophen 325 MG Tab PO SCH ×2 (14:18→20:04)
[2019-08-26] MEDS: Pantoprazole 40 MG Vial IV SCH (14:19)
[2019-08-26] MEDS: Meropenem 500 MG in Sodium Chloride 0.9% 50 ML IV SCH ×2 (14:20→20:03)
[2019-08-26] MEDS ORDERED: MVI, Adult with Vitamin K 10 ML, Thiamine 200 MG, Chromium/Copper/Mang/Selen/Zn 1 ML in... IV SCH ×4 (16:00)
--- NOTE | 2019-08-26 18:47 | OR ---
DATE OF PROCEDURE: 08/26/2019 SURGEON: Eliazar Perez MD PREOPERATIVE DIAGNOSIS: Obstruction at jejunojejunostomy. POSTOPERATIVE DIAGNOSIS: Obstruction at jejunojejunostomy secondary to mesenteric hematoma at recent anastomosis. OPERATIVE PROCEDURE: Exploratory laparotomy with: 1. Small bowel resection at jejunojejunostomy (66018). 2. Secondary enteroenterostomy to re-establish Marjorie-en-Y small bowel anatomy (40024). 3. Placement of Interceed mesh to limit recurrent adhesion formation between the abdominopelvic wall, overlying mesh, and underlying viscera (72530). ANESTHESIA: General. VACATION GUIDE: Clementina Anna PA-C. INDICATIONS FOR PROCEDURE: This is a 53-year-old, roughly 2 weeks status post an exploratory laparotomy in which stricturing at her gastrojejunostomy was treated by means of division of the small bowel at the Marjorie limb site as it entered the anastomosis and reanastomosing that roughly 20 cm distal. She presented last week with some increasing abdominal discomfort and overnight was admitted with a picture of a small bowel obstruction. The patient had some fecalization of the small bowel contents in the distal Marjorie limb leading up to anastomosis and marked dilation of that limb. Plan is to proceed with an exploratory laparotomy and probable revision of the jejunojejunostomy. The potential risks of the procedure including bleeding, infection, recurrence of re-obstruction problem over time, problems with mesh becoming infected, as well as remote possibility of cardiopulmonary, septic, or hemorrhagic complications leading to , and the patient wishes to proceed. DETAILS OF PROCEDURE: The patient was taken to the operating room and placed in a supine position. After general endotracheal anesthesia was induced, Arechiga catheter was inserted, and the abdomen prepped and draped, the previous upper midline incision was then reopened down to the level of the fascia. All the sutures holding the polypropylene mesh were then divided allowing the mesh to be once again. The abdomen was initially irrigated with some meropenem and Zyvox-containing saline solution. As one mobilized the bowel upwards, it became evident that the point of stricture was at the recent point where the Marjorie limb had been anastomosed to the small bowel. The patient had developed a large amount of hematoma underneath that anastomosis resulting in the obstructive effect. The hematoma was roughly 3 to 4 cm in diameter underneath the area of that anastomosis. The contents containing the solidified material were then milked as distally as I could towards the recent anastomosis where the small bowel was divided. The small bowel was then divided where the pancreaticoduodenal limb and also the common limb joined that anastomosis. The combined bowel was then divided at the mesenteric level with ORALIA loads as well, and the specimen delivered from the field. Initial anastomosis was then accomplished between what had been the distal-most biliopancreatic limb and the common limb with a single internal firing of the Endo-ORALIA 60 mm stapler. Common opening was then closed transversely with the same stapler, and the angles anastomosed and reinforced with some 3-0 Vicryl stitch. There was no significant mesenteric defect at this location. Roughly at 15 cm further distally, then the Marjorie limb was anastomosed to the small bowel to recreate the Marjorie-en-Y anatomy. This was accomplished with an internal firing of the Endo-ORALIA 60 mm stapler, followed by a 40 mm stapler. The common opening was once again closed transversely with the ORALIA stapler, the angles anastomosed, and reinforced with some 3-0 Vicryl stitch, and the mesenteric defect closed with a 2-0 silk stitch. After this point after we started working on the bowel, lap and sponges soaked with meropenem and Zyvox had been placed along the edges of the incision including covering of the mesh. Once the small bowel was completed, all of the gloves and gowns and the instruments that had been used to that point were removed, and the suction catheter also replaced. This then allowed removal of the antibiotic-soaked gauzes, and the abdomen in general appeared to be satisfactory. At this point, abdomen was irrigated with some additional meropenem and Zyvox-containing saline solution. Interceed mesh was then placed underneath the incision and downward towards the pelvis to help prevent recurrent adhesion formation between the underlying viscera and those surfaces. The mesh was then re- approximated with running 0 Prolene stitch. The fascia over this was then closed with a #2 Vicryl stitch and the subcutaneous tissue was approximated with a 3-0 Vicryl stitch, 4-0 subdermal stitch, and then aman for the skin. The patient had received bilateral transversus abdominis plane block earlier in the case, and the fascial incision was also anesthetized with some 0.5% Marcaine mixed with lidocaine, and the patient was taken to the recovery room in satisfactory condition. Physician assistant facility manager, Clementina Anna, played an essential role in assisting in this case, helping to position the patient, retract structures as needed, as well as suturing and stapling as indicated. Her presence improved the patient's safety and decreased operative time. Eliazar Perez MD /[id number]
[2019-08-26] MEDS: traZODone 50 MG Tab PO SCH (20:05)
[2019-08-27] MEDS: Meropenem 500 MG in Sodium Chloride 0.9% 50 ML IV SCH ×3 (01:56→14:14)
[2019-08-27] MEDS: Acetaminophen 325 MG Tab PO SCH ×4 (01:58→19:37)
[2019-08-27] MEDS ORDERED: Iopamidol 612 MG/ML 50 ML SDV PO ONE (02:04)
[2019-08-27] MEDS: HYDROmorphone/Normal Saline 15 MG/30 ML PCA IV PRN (03:38)
[2019-08-27] MEDS: Ondansetron 4 MG/2 ML SDV IV PRN ×3 (03:51→19:42)
[2019-08-27] MEDS: Dextrose 5%-Lactated Ringers 1,000 ML IV SCH ×3 (04:28→13:41)
--- NOTE | 2019-08-27 05:07 | CRLCR ---
Indication: Status post Marjorie-en-Y gastric bypass Technique: KUB 2 view obtained after administration of 50 cc Isovue 300 Comparison: August 10, 2019 Findings/Impression: : Oral contrast material seen within the distal esophagus, a small portion of the gastric pouch, and the small bowel. No evidence for contrast extravasation. There are some air-filled loops of small bowel. The colon appears compressed. Findings may represent small bowel obstruction. Skin aman project over the lower abdomen. Status post ORIF lumbar spine and right sacroiliac joint. Dictated by Zainab Obando MD @ Aug 27 2019 5:01AM Signed by Dr. Zainab Obando @ Aug 27 2019 5:04AM
[2019-08-27] MEDS: Estradiol 0.5 MG Tab PO SCH (09:08)
[2019-08-27] MEDS: SCOPOLAMINE PATCH CHECK TOP SCH (09:09)
--- NOTE | 2019-08-27 10:55 | PN ---
DATE OF SERVICE: 08/27/2019 SUBJECTIVE: Chelsea is postoperative day 1. Vital signs have been stable. Urine output has been adequate via Arechiga catheter. She has had out 1550. Oral intake was 630. Pain has been controlled. REVIEW OF SYSTEMS: Remainder of review of systems negative for any pertinent positives and negatives. OBJECTIVE: GENERAL: Chelsea Vigil is a 53-year-old female. She is alert and orientated. VITAL SIGNS: TPR 97.4, 76, 18. Blood pressure 134/73. HEENT: Negative. NECK: Supple. HEART: Regular rate and rhythm. LUNGS: Clear. ABDOMEN: Dressing is dry and intact. Abdominal binder is on. EXTREMITIES: Without peripheral edema. ASSESSMENT: Exploratory laparotomy with: 1. Small-bowel resection at the jejunojejunostomy. 2. Secondary enterostomy to re-establish Marjorie-en-Y small bowel anatomy. 3. Placement of Interceed mesh to limit recurrent adhesion formation between the abdominopelvic wall overlying mesh and overlying viscera for obstruction at the jejunojejunostomy secondary to mesenteric hematoma at recent anastomosis. Date of surgery, 08/26/2019. Surgeon, Eliazar Perez MD. PLAN: 1. Discontinue Arechiga catheter. 2. Decrease IV to D5LR 100 mL/hour. 3. Encouraged ambulation. 4. Good pulmonary toilet. 5. We will evaluate p.r.n. or in a.m. Clementina Anna PA-C /[id number]
[2019-08-27] MEDS: Magnesium Sulfate/Water 2 GM in Premix Bag 1 BAG IV SCH ×3 (11:02→22:44)
[2019-08-27] MEDS: Pantoprazole 40 MG Vial IV SCH (14:23)
--- NOTE | 2019-08-27 14:27 | CRLUS ---
INDICATION: Leg pain and swelling. TECHNIQUE: Ultrasound venous duplex lower extremity bilateral. Compression venous exam was performed using gallardo-scale, color Doppler, and spectral Doppler imaging. COMPARISON: None. FINDINGS: Sonographic imaging demonstrates the common femoral, deep femoral, superficial femoral, popliteal, posterior tibial and greater saphenous veins to be fully compressible with normal color Doppler blood flow in both lower extremities. IMPRESSION: Normal bilateral lower extremity venous ultrasound, no sign of deep venous thrombosis. Dictated by Altaf Hankins MD @ Aug 27 2019 2:20PM Signed by Dr. Altaf Hankins @ Aug 27 2019 2:25PM
[2019-08-27] MEDS: diphenhydrAMINE 25 MG Cap PO PRN (15:26)
[2019-08-27] MEDS ORDERED: MVI, Adult with Vitamin K 10 ML, Thiamine 200 MG, Chromium/Copper/Mang/Selen/Zn 1 ML in... IV SCH ×4 (16:00)
[2019-08-27] MEDS: Lidocaine 0.4%/D5W 2 GM/500 ML BAG IV SCH (16:17)
[2019-08-27] MEDS: tiZANidine 4 MG Tab PO SCH (20:12)
[2019-08-27] MEDS: traZODone 50 MG Tab PO SCH (20:12)
[2019-08-28] MEDS: HYDROmorphone/Normal Saline 15 MG/30 ML PCA IV PRN (02:35)
[2019-08-28] MEDS: diphenhydrAMINE 25 MG Cap PO PRN (02:36)
[2019-08-28] MEDS: Acetaminophen 325 MG Tab PO SCH ×4 (02:37→19:53)
[2019-08-28] MEDS: Magnesium Sulfate/Water 2 GM in Premix Bag 1 BAG IV SCH ×2 (05:00→10:47)
[2019-08-28] MEDS: Dextrose 5%-Lactated Ringers 1,000 ML IV SCH (05:06)
[2019-08-28] MEDS: HYDROmorphone 2 MG Tab PO PRN ×3 (07:47→19:54)
[2019-08-28] MEDS ORDERED: Magnesium Hydroxide 400 MG/5 ML Susp 30 ML Cup PO ONE (08:00)
[2019-08-28] MEDS: SCOPOLAMINE PATCH CHECK TOP SCH (08:37)
[2019-08-28] MEDS: Estradiol 0.5 MG Tab PO SCH (08:37)
[2019-08-28] MEDS ORDERED: Bisacodyl 5 MG Tab PO ONE (09:00)
[2019-08-28] MEDS ORDERED: Cyanocobalamin (Vitamin B12) 1,000 MCG/ML SDV IM ONE (09:00)
[2019-08-28] MEDS ORDERED: FLU Vacc QS2019-20(6MOS+)/PF 60 MCG/0.5 ML SYRINGE IM ONE (10:00)
[2019-08-28] MEDS: Pantoprazole 40 MG Vial IV SCH (13:22)
--- NOTE | 2019-08-28 13:58 | PN ---
DATE OF SERVICE: 08/28/2019 SUBJECTIVE: Chelsea states that she has been voiding without any problems until this morning. She felt like she was not able to completely empty out her bladder, concerned about a bladder infection. Her pain has been controlled. Oral intake is 2220. Urine output is 2300. She is on a step 1 gastric bypass diet. Breakfast was consumed 100%. Lunch and dinner not recorded. Chelsea also reports itching and states that she has been itching all over. The meropenem was discontinued. Benadryl did help at first, but it is not helping quite as much. The second 2 to 3 doses that she has had, she states it will just take the edge off but not completely away. REVIEW OF SYSTEMS: Remainder of review of systems negative for any pertinent positives and negatives. OBJECTIVE: GENERAL: Chelsea Vigil is a 53-year-old female. She is alert and orientated. VITAL SIGNS: TPR 97.1, 75, 18. Blood pressure 109/68. HEENT: Negative. NECK: Supple. HEART: Regular rate and rhythm. LUNGS: Clear. ABDOMEN: Dressing is dry and intact. Abdominal binder is on. EXTREMITIES: Without peripheral edema. ASSESSMENT: Exploratory laparotomy with: 1. Small-bowel resection at the jejunojejunostomy. 2. Secondary enterostomy to re-establish Marjorie-en-Y small bowel anatomy. 3. Placement of Interceed mesh to limit recurrent adhesion formation between the abdominopelvic wall overlying mesh and overlying viscera for obstruction at the jejunojejunostomy secondary to mesenteric hematoma at recent anastomosis. Date of surgery, 08/26/2019. Surgeon, Eliazar Perez MD. PLAN: 1. 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 2. Dilaudid 2 mg 1 to 2 every 4 hours p.r.n. pain. 3. Milk of Magnesia 30 mL 1 time. 4. Dulcolax 2 tabs to be given 1 hour after Milk of Magnesia. 5. Shower. 6. Advance to step 2 diet with cereal. 7. Check UA. 8. Bladder scan after next void. 9. Good pulmonary toilet. 10.We will evaluate p.r.n. or in a.m. Clementina Anna PA-C /[id number]
[2019-08-28] MEDS ORDERED: Omeprazole 20 MG Cap.CR PO SCH (16:00)
[2019-08-28] MEDS ORDERED: Pantoprazole 40 MG Delayed-Release Granules 1 Packet PO SCH (16:30)
[2019-08-28] MEDS: traZODone 50 MG Tab PO SCH (20:57)
[2019-08-28] MEDS: tiZANidine 4 MG Tab PO SCH (20:57)
[2019-08-28 23:06] VITALS: PULSE 63
[2019-08-29] MEDS: Acetaminophen 325 MG Tab PO SCH ×2 (02:32→08:44)
[2019-08-29] MEDS: HYDROmorphone 2 MG Tab PO PRN ×2 (02:34→08:44)
[2019-08-29 02:37] VITALS: BP 98/54
[2019-08-29] MEDS: Estradiol 0.5 MG Tab PO SCH (08:44)
[2019-08-29] MEDS ORDERED: Magnesium Oxide 400 MG Tab PO SCH (09:00)
--- NOTE | 2019-08-29 13:47 | DISCH ---
ADMISSION DIAGNOSES: 1. Partial small bowel obstruction. 2. Status post Marjorie-en-Y gastric bypass surgery. 3. Unspecified surgical malabsorption. 4. B12 deficiency. 5. Allergic rhinitis. 6. Cardiac arrhythmia. 7. Celiac disease. 8. Gastroesophageal reflux disease. 9. Chronic back pain. 10.Osteoarthritis. 11.Osteoporosis. 12.Vitamin D deficiency. 13.Iron deficiency. DISCHARGE DIAGNOSES: Exploratory laparotomy with: 1. Small-bowel resection at the jejunojejunostomy. 2. Secondary enterostomy to re-establish Marjorie-en-Y small bowel anatomy. 3. Placement of Interceed mesh to limit recurrent adhesion formation between abdominal and pelvic wall, overlying mess and underlying viscera for obstruction of the jejunojejunostomy secondary to mesenteric hematoma at recent anastomosis. HISTORY: Zaria is a 53-year-old female, who approximately 2 weeks ago had an exploratory laparotomy in which stricturing at her gastrojejunostomy was treated by means of division of the small bowel at the Marjorie limb site, and as it entered the anastomosis and reanastomosing had roughly 20 cm distally. She presented last week with increased abdominal discomfort and was admitted with a partial small bowel obstruction. She had some fecalization of the small bowel contents into the Marjorie limb leading to the anastomosis. After preoperative evaluation and discussion of possible risks and possible complications, she wished to proceed with surgical procedure. HOSPITAL COURSE: On 08/26/2019, she had no operative complications. On postoperative day #1, her pain was managed, she was up and ambulating, started on a step 1 gastric bypass diet. Her [employer] was continued for pain control. On 08/28/2019, postop day #2, she was changed to oral pain medication, given milk of magnesia, followed by Dulcolax 2 tablets. Diet was advanced to step 2 with no cereal. She did have a bowel movement. Vital signs were stable. Activity, she was up independently, received dietary instruction, and was able to be discharged to home on 08/29/2019. PHYSICAL EXAMINATION: GENERAL: Zaria Vigil is a 53-year-old female. VITAL SIGNS: Height is 5 feet 4 inches, weight is 187 pounds, BMI is 31.9. TPR is 96.4, 63, 16, blood pressure 98/54. HEENT: Negative. NECK: Supple. HEART: Regular rate and rhythm. LUNGS: Clear. ABDOMEN: Aquacel dressing is on. This will be removed prior to discharge. Abdominal binder is on. EXTREMITIES: Without peripheral edema. DISPOSITION: Discharged to home. CONDITION: Stable and improving. FOLLOWUP: Followup appointment with Clementina Anna PA-C, on 09/09/2019 at 9 a.m. HOME MEDICATIONS: 1. Dilaudid 2 mg one q.4 hours p.r.n. pain #42. 2. Tylenol 650 mg q.6 hours p.r.n. pain. She is to resume her home medication including vitamin supplements, Estrace 0.5 mg oral daily, Levsin 0.125 mg oral every 4 hours p.r.n. esophageal spasms, Claritin 10 mg oral daily, omeprazole 40 mg oral twice daily, Zofran 4 mg every 4 hours, probiotics 500 mg oral twice daily, tizanidine two tablets oral at bedtime, trazodone 50 mg at bedtime. DISCHARGE INSTRUCTIONS: Diet after discharge: Step 2 gastric bypass diet for 2 weeks. Drink 8 to 10 glasses of water a day. Other activity: No lifting over 10 pounds for 6 weeks. Walk at least 6 times daily inside your home. Do not drive for 1 week and while on pain medication. Shower/bathing: May shower. Notify provider if any fever, increased pain, nausea, vomiting. Keep site clean and dry. Wear abdominal binder for 6 weeks. Use incentive spirometer 10 times every hour while awake for 1 week.
== END 2019-08-29 12:30 | disposition home or self-care (01) | DRG 220 ==
LOC: JP.ED 22:00 → JP.MS 08-26 01:18
PROVIDERS: ADMIT Surgery; ATTEND Surgery
PROC: 0DB80ZZ Excision of Small Intestine, Open Approach (ICD-10-PCS; principal; 2019-08-26)
PROC: 0D160ZA Bypass Stomach to Jejunum, Open Approach (ICD-10-PCS; 2019-08-26)
PROC: 3E0M05Z Introduction of Adhesion Barrier into Peritoneal Cavity, Open Approach (ICD-10-PCS; 2019-08-26)
PROC: 3E02340 Introduction of Influenza Vaccine into Muscle, Percutaneous Approach (ICD-10-PCS; 2019-08-28)
DX: K91.89 Other postprocedural complications and disorders of digestive system (principal); K94.19 Other complications of enterostomy; K95.89 Other complications of other bariatric procedure; K56.600 Partial intestinal obstruction, unspecified as to cause; M79.81 Nontraumatic hematoma of soft tissue; E53.8 Deficiency of other specified B group vitamins; E55.9 Vitamin D deficiency, unspecified; J30.9 Allergic rhinitis, unspecified; I49.9 Cardiac arrhythmia, unspecified; K90.0 Celiac disease; K21.9 Gastro-esophageal reflux disease without esophagitis; G89.29 Other chronic pain; M54.9 Dorsalgia, unspecified; M19.90 Unspecified osteoarthritis, unspecified site; M81.0 Age-related osteoporosis without current pathological fracture; H54.7 Unspecified visual loss; E66.9 Obesity, unspecified; Y83.3 Surgical operation with formation of external stoma as the cause of abnormal reaction of the patient, or of later complication, without mention of misadventure at the time of the procedure; D50.9 Iron deficiency anemia, unspecified; Z23 Encounter for immunization; Z88.5 Allergy status to narcotic agent; Z98.84 Bariatric surgery status; Z88.1 Allergy status to other antibiotic agents; Z88.8 Allergy status to other drugs, medicaments and biological substances; Z91.048 Other nonmedicinal substance allergy status; Z79.899 Other long term (current) drug therapy; Z98.1 Arthrodesis status; Z68.31 Body mass index [BMI] 31.0-31.9, adult; Z90.89 Acquired absence of other organs; Z90.49 Acquired absence of other specified parts of digestive tract; Z90.710 Acquired absence of both cervix and uterus; Z87.891 Personal history of nicotine dependence
CPT/HCPCS: 36415; 74176; 74240; 80053; 81001; 83690; 83735; 84100; 85025; 86140; 88307; 90686; 93970; 96361; 96374; 96375; 96376; 99285-25; A9270-GY; C9113; G0008; J0171; J0330; J1100; J1170; J2001; J2020; J2060; J2185; J2405; J2704; J2710; J2765; J2795; J3010; J3410; J3411; J3420; J3475; J3490; J7030; J7042; J7050; J7120; Q9967

== ENCOUNTER 2019-09-16 14:58 | Inpatient (IN) | payer BC ==
[2019-09-16] MEDS: Iohexol 300 MG/ML 30 ML Bottle ONE ×2 (14:58→16:03)
[2019-09-16] MEDS ORDERED: HYDROmorphone/Normal Saline 15 MG/30 ML PCA IV PRN (15:23)
[2019-09-16] MEDS ORDERED: Naloxone 0.4 MG/ML SDV IV PRN (15:23)
[2019-09-16] MEDS ORDERED: Lactated Ringers 1,000 ML IV ONE (15:30)
[2019-09-16] MEDS: Iohexol 300 MG/ML 30 ML Bottle IVPUSH ONE (16:03)
[2019-09-16] MEDS: Pantoprazole 40 MG Vial IV SCH (16:05)
[2019-09-16] MEDS: Sodium Chloride 0.9% 10 ML Syringe FLUSH PRN ×2 (16:09→17:47)
--- NOTE | 2019-09-16 16:48 | PCM.CONS ---
H&P History of Present Illness - General Date of Service: 09/16/19 Admit Problem/Dx: Admission Diagnosis/Problem Admission Diagnosis/Problem Abdominal pain Source of Information: Patient, Old Records, Provider, RN Notes Reviewed History Limitations: Reports: No Limitations - History of Present Illness Initial Comments - Free Text/Narative: Ms. Vigil is a 53-year-old woman who I been asked to see by Dr. Perez for further suggestions concerning evaluation and management of lower abdominal pain. She has experienced recurrent episodes of bowel obstruction this year. Most recently has had surgery at the end of July and the beginning of August for small bowel obstruction. She also had fusion of a sacral iliac joint in June. After discharge from her most recent surgery she was feeling well, but now over the past 2 weeks has experienced intense cramping pain in her left lower abdomen. She experiences these episodes for approximately 15-20 seconds and it's very intense and can occur several times in an hour. She will feel somewhat better if she is able to pass gas or have a bowel movement, but symptoms will recur later in the day. She feels better if she is lying down but otherwise does not feel that position or activity affect the pain. Eating or drinking seem to make the pain worse, her appetite has been poor over the past 2 weeks and she estimates that she's lost approximately [address] scan of the abdomen and pelvis was obtained last week showing evidence of fluid in the abdomen but no other significant abnormalities to explain her symptoms. There have been no fever or vomiting, she does note occasional episodes of nausea. There is been no hematemesis melena or hematochezia. Abdomen Pain Score (Numeric/FACES): 3 - Related Data Allergies/Adverse Reactions: Allergies Allergy/AdvReac Type Severity Reaction Status Date / Time meropenem [From Merrem] Allergy Intermediate Redness Verified 08/27/19 14:59 chlorhexidine Allergy Rash Verified 08/08/19 15:37 hydrocodone Allergy Itching Verified 08/08/19 15:37 water for injection,sterile Allergy Cannot Verified 08/08/19 15:37 [From Reclast] Remember zoledronic acid Allergy Cannot Verified 08/08/19 15:37 [From Reclast] Remember amoxicillin [Amoxicillin] AdvReac Vomiting Verified 08/09/19 14:23 benzoin AdvReac Blisters Verified 08/09/19 14:23 ciprofloxacin AdvReac Nausea and Verified 08/09/19 14:23 Vomiting clavulanic acid AdvReac Nausea and Verified 08/09/19 14:23 [From Augmentin] Vomiting doxycycline AdvReac Nausea and Verified 08/09/19 14:23 Vomiting mannitol [From Reclast] AdvReac Nausea and Verified 08/09/19 14:23 Vomiting pantoprazole AdvReac Diarrhea Verified 08/28/19 15:47 adhesive tape Allergy Rash Uncoded 12/24/18 06:23 Home Medications: Home Meds Estradiol [Estrace] 0.5 mg PO DAILY 09/24/14 [History] Loratadine [Claritin] 10 mg PO DAILY 09/24/14 [History] Cholecalciferol (Vitamin D3) [Vitamin D] 5,000 units PO DAILY 09/25/14 [History] Folic Acid 1 mg PO DAILY 12/27/16 [History] Biotin 10,000 mg PO DAILY 12/29/16 [History] Vitamin B Complex [B Complex] 1 tab PO BEDTIME 06/28/17 [History] Multivitamin [Flintstones] 2 tab PO BID 06/30/17 [History] Calcium Carb/Magnesium Oxid/D3 [Calcium Magnesium + D] 1 each PO DAILY 03/28/18 [History] Hyoscyamine [Levsin] 0.125 mg PO Q4HR PRN 12/21/18 [History] Ondansetron [Zofran ODT] 4 mg PO Q4H PRN 12/21/18 [History] Cyanocobalamin (Vitamin B-12) [Vitamin B-12] 2,500 mcg SL DAILY 12/24/18 [ History] Acetaminophen [Tylenol] 650 mg PO Q6H tablet 12/26/18 [Rx] Omeprazole 40 mg PO BID 08/08/19 [History] Saccharomyces Boulardii [Probiotic] 500 mg PO BID 08/08/19 [History] traZODone HCl [Trazodone HCl] 50 mg PO BEDTIME 08/08/19 [History] Acetaminophen [Tylenol] 650 mg PO Q6H tablet 08/12/19 [Rx] HYDROmorphone [Dilaudid] 2 mg PO Q4H PRN #42 tablet 08/12/19 [Rx] tiZANidine [Zanaflex] 2 tab PO DAILY 08/26/19 [History] Acetaminophen [Tylenol] 650 mg PO Q6H tablet 08/29/19 [Rx] HYDROmorphone [Dilaudid] 2 mg PO Q4H PRN #42 tablet 08/29/19 [Rx] Past Medical History HEENT History: Reports: Allergic Rhinitis, Glaucoma, Impaired Vision Other HEENT History: wears glasses Cardiovascular History: Reports: Arrhythmia Other Cardiovascular History: PVCs Respiratory History: Reports: Bronchitis, Recurrent Gastrointestinal History: Reports: Celiac Disease, Cholelithiasis, Gastritis, GERD, Hiatal Hernia Other Gastrointestinal History: celiac disease Genitourinary History: Reports: None [employer] History: Reports: Endometriosis, Fibroids, Musculoskeletal History: Reports: Arthritis, Back Pain, Chronic, Fracture, Neck Pain, Chronic, Osteoarthritis, Osteoporosis Other Musculoskeletal History: fx right foot,ankle and wrist fx left toe, fusions lower back and neck Neurological History: Reports: None Psychiatric History: Reports: None Endocrine/Metabolic History: Reports: Obesity/BMI 30+, Vitamin D Deficiency Hematologic History: Reports: Anemia, B12 Deficiency, Folic Acid, Iron Deficiency Immunologic History: Reports: None Oncologic (Cancer) History: Reports: None Dermatologic History: Reports: Other (See Below) Other Dermatologic History: "sensitive skin" - Infectious Disease History Infectious Disease History: Reports: Chicken Pox - Past Surgical History Head Surgeries/Procedures: Reports: None HEENT Surgical History: Reports: Laser Surgery, Oral Surgery, Tonsillectomy Cardiovascular Surgical History: Reports: None Respiratory Surgical History: Reports: None GI Surgical History: Reports: Bariatric Procedure, Cholecystectomy, Colonoscopy , EGD, Esophageal Dilatation, Small Bowel Other GI Surgeries/Procedures: resectionx3. Female Surgical History: Reports: Breast Biopsy, Hysterectomy, Salpingo- Oophorectomy, Tubal Ligation Endocrine Surgical History: Reports: None Neurological Surgical History: Reports: C-Spine, Discectomy, Laminectomy, Lumbar Spine, Scoliosis, Spinal Fusion Musculoskeletal Surgical History: Reports: Arthroscopic Knee, Arthroscopic Procedure, Ganglion Cyst, Joint Replacement, Knee Replacement Other Musculoskeletal Surgeries/Procedures:: bilateral knee-total Oncologic Surgical History: Reports: Biopsy of Breast Dermatological Surgical History: Reports: None Social & Family History - Family History Family Medical History: Noncontributory HEENT: Reports: Allergic Rhinitis, Glaucoma, Impaired Vision Cardiac: Reports: Afib, [place], Stent Respiratory: Reports: Asthma, COPD : Reports: Renal Calculus OBGYN: Reports: Endometriosis, Fibroids Musculoskeletal: Reports: Arthritis, Back pain, Chronic, Neck Pain, Chronic Neurological: Reports: Migraines Hematologic: Reports: Other (See Below) Other Hematologic Family History: unknown type of thrombocytopenia Dermatologic: Reports: Eczema Oncologic: Reports: Lung - Tobacco Use Smoking Status *Q: Never Smoker - Caffeine Use Caffeine Use: Reports: Coffee, Tea Caffeine Use Comment: 1 cup per day - Recreational Drug Use Recreational Drug Use: No H&P Review of Systems - Review of Systems: Review Of Systems: See Below General: Reports: Weakness, Fatigue, Decreased Appetite, Weight Loss. Denies: Fever, Chills, Diaphoresis Pulmonary: Reports: No Symptoms Cardiovascular: Reports: No Symptoms Gastrointestinal: Reports: Abdominal Pain, Diarrhea, Decreased Appetite, Nausea. Denies: Constipation, Difficulty Swallowing, Distension, Hematemesis, Hematochezia, Melena, Vomiting Genitourinary: Reports: No Symptoms Musculoskeletal: Reports: No Symptoms Skin: Reports: No Symptoms Neurological: Reports: No Symptoms Exam - Exam Exam: See Below - Vital Signs Vital Signs: Last Vital Signs Temp 97.1 F 09/16/19 15:25 Pulse 66 09/16/19 15:25 Resp 16 09/16/19 15:25 BP 138/80 09/16/19 15:25 Pulse Ox 98 09/16/19 15:25 Weight: 169 lb - Exam General: Alert, Oriented, Cooperative, Mild Distress Neck: Supple, Trachea Midline Lungs: Clear to Auscultation, Normal Respiratory Effort Cardiovascular: Regular Rate, Regular Rhythm, Normal S1, Normal S2. No: Systolic Murmur, Diastolic Murmur GI/Abdominal Exam: Soft, No Organomegaly, Tender. No: Distended, Guarding, Rigid, Rebound Back Exam: Normal Inspection, Full Range of Motion Extremities: Non-Tender, No Pedal Edema Skin: Warm, Dry, Intact - Patient Data Lab Results Last 24 hrs: Laboratory Results - last 24 hr 09/16/19 09/16/19 09/16/19 Range/Units 15:37 15:37 15:37 WBC (4.5-11.0) K/uL RBC (3.30-5.50) M/uL Hgb (12.0-15.0) g/dL Hct (36.0-48.0) % MCV (80-98) fL MCH (27-31) pg MCHC (32-36) % Plt Count (150-400) K/uL ESR 16 (0-25) mm/hr Sodium (140-148) mmol/L Potassium (3.6-5.2) mmol/L Chloride (100-108) mmol/L Carbon Dioxide (21-32) mmol/L Anion Gap (5.0-14.0) mmol/L BUN (7-18) mg/dL Creatinine (0.6-1.0) mg/dL Est Cr Clr Drug Dosing mL/min Estimated GFR (MDRD) (>60) Glucose (74-106) mg/dL Lactic Acid 1.0 (0.4-2.0) mmol/L Calcium (8.5-10.1) mg/dL Phosphorus (2.5-4.9) mg/dL Magnesium (1.8-2.4) mg/dL Ferritin (8-388) ng/ml Total Bilirubin (0.2-1.0) mg/dL AST (15-37) U/L ALT (12-78) U/L Alkaline Phosphatase (46-116) U/L C-Reactive Protein 0.28 (0.0-0.3) mg/dL Total Protein (6.4-8.2) g/dL Albumin (3.4-5.0) g/dL Globulin (2.3-3.5) g/dL Albumin/Globulin Ratio (1.2-2.2) Vitamin B12 (193-986) pg/ml 09/16/19 09/16/19 Range/Units 15:44 15:44 WBC 4.3 L (4.5-11.0) K/uL RBC 4.10 (3.30-5.50) M/uL Hgb 12.1 (12.0-15.0) g/dL Hct 38.2 (36.0-48.0) % MCV 93 (80-98) fL MCH 30 (27-31) pg MCHC 32 (32-36) % Plt Count 325 (150-400) K/uL ESR (0-25) mm/hr Sodium 140 (140-148) mmol/L Potassium 3.6 (3.6-5.2) mmol/L Chloride 102 (100-108) mmol/L Carbon Dioxide 30 (21-32) mmol/L Anion Gap 8.1 (5.0-14.0) mmol/L BUN 9 (7-18) mg/dL Creatinine 0.6 (0.6-1.0) mg/dL Est Cr Clr Drug Dosing 92.56 mL/min Estimated GFR (MDRD) > 60 (>60) Glucose 88 (74-106) mg/dL Lactic Acid (0.4-2.0) mmol/L Calcium 9.4 (8.5-10.1) mg/dL Phosphorus 3.4 (2.5-4.9) mg/dL Magnesium 2.1 (1.8-2.4) mg/dL Ferritin 317 (8-388) ng/ml Total Bilirubin 0.3 (0.2-1.0) mg/dL AST 25 D (15-37) U/L ALT 42 D (12-78) U/L Alkaline Phosphatase 127 H (46-116) U/L C-Reactive Protein (0.0-0.3) mg/dL Total Protein 7.2 (6.4-8.2) g/dL Albumin 3.9 (3.4-5.0) g/dL Globulin 3.3 (2.3-3.5) g/dL Albumin/Globulin Ratio 1.2 (1.2-2.2) Vitamin B12 1847 H (193-986) pg/ml Result Diagrams: 09/16/19 15:44 09/16/19 15:44 Consult PN Assessment/Plan Procedures: Procedures BLOOD TYPING SEROLOGIC ABO (07/14/16) BLOOD TYPING SEROLOGIC RH(D) (07/14/16) BREAST TOMOSYNTHESIS BI (08/08/19) COMP SCREEN MAMMOGRAM ADD-ON (09/18/15) CT ABD & PELV W/CONTRAST (08/08/19) CULTURE SCREEN ONLY (06/07/16) DIAGNOSTIC COLONOSCOPY (06/30/17) EGD BALLOON DIL ESOPH30 MM/> (02/01/17) EGD BIOPSY SINGLE/MULTIPLE (06/07/16) EGD DILATE STRICTURE (02/14/17) ELECTRICAL STIMULATION (10/31/13) EMERGENCY DEPT VISIT (01/16/15) GLUCOSE BLOOD TEST (01/16/15) HOT OR COLD PACKS THERAPY (10/16/15) INJECT TRIGGER POINTS 3/> (11/18/15) LAP INC DUDLEY RECUR COMP (12/25/18) LAPARO PROC ABDM/PER/OMENT (12/25/18) MANUAL THERAPY 1/> REGIONS (11/18/15) MEASURE BLOOD OXYGEN LEVEL (12/25/18) POLYSOM 6/>YRS CPAP 4/> PARM (02/08/16) PT EVALUATION (09/17/15) PT RE-EVALUATION (10/14/13) RBC ANTIBODY SCREEN (07/14/16) SCR MAMMO BI INCL CAD (08/08/19) SUSPEND BOWEL W/PROSTHESIS (12/25/18) THERAPEUTIC EXERCISES (10/16/15) TISSUE EXAM BY PATHOLOGIST (12/25/18) TISSUE EXAM BY PATHOLOGIST (06/07/16) TTE W/DOPPLER COMPLETE (07/28/16) ULTRASOUND THERAPY (11/18/15) URINALYSIS AUTO W/SCOPE (12/25/18) URINE CULTURE/COLONY COUNT (12/25/18) X-RAY EXAM L-S SPINE 2/3 VWS (08/10/16) Problem List Initiated/Reviewed/Updated: Yes Plan: ASSESSMENT AND RECOMMENDATIONS LEFT LOWER QUADRANT ABDOMINAL PAIN-intense cramping pain in the lower left lower quadrant, lasting several seconds and occurring several times per hour. Present for the past 2 weeks, following 2 recent surgeries for small bowel obstruction. Did have one episode of constipation which occurred early in the course of this pain. Since then she has been experiencing daily bowel movements. Laboratory studies obtained today show normal white blood cell count , CRP, and lactic acid level. Sedimentation rate has been obtained and is pending at the time of this dictation. Symptoms sound to be most consistent with a partial obstruction in the lower GI tract, versus irritability in the colon. -CT scan with IV and oral contrast pending -Consider colonoscopy and/or barium enema for further evaluation Requesting Provider: ACUNA Date Consult Requested: 09/16/19 Reason for Consult: Evaluation of lower abdominal pain Patient History Reviewed: Yes
[2019-09-16] MEDS: Ondansetron 4 MG/2 ML SDV IVPUSH PRN ×2 (17:08→20:56)
[2019-09-16] MEDS: Sodium Chloride 0.9% 80 ML IV SCH ×2 (17:47→17:55)
--- NOTE | 2019-09-16 18:27 | CRLCT ---
INDICATION: Abdominal pain TECHNIQUE: CT abdomen and pelvis acquired with oral contrast and 100 cc Isovue-300 IV contrast. COMPARISON: September 12, 2019 FINDINGS: Lower chest: Unremarkable. Liver: Unremarkable. Spleen: Unremarkable. Pancreas: Unremarkable. Gallbladder and bile ducts: S/p cholecystectomy. Mild intrahepatic and extrahepatic biliary ductal dilatation is likely due to reservoir effect. No filling defects seen within the common bile duct. Adrenal glands: Unremarkable. Kidneys: Unremarkable. GI tract: Oral contrast reaches the cecum. Status post gastric bypass procedure. Colonic diverticulosis. Appendix is normal. Vascular structures: Unremarkable. Lymph nodes: Unremarkable. Miscellaneous: Small amount of ascites, unchanged. No free air. Pelvic Organs: Moderate distention of the urinary bladder. Bones: Status post ORIF L3-L5 and two plates across the right sacroiliac joint. IMPRESSION: No acute intra-abdominal process identified. Small amount of ascites is stable compared to the prior exam. Colonic diverticulosis without evidence for diverticulitis. Status post cholecystectomy, gastric bypass procedure, and ORIF L3-L5 and right sacroiliac joint. Please note that all CT scans at this facility use dose modulation, iterative reconstruction, and/or weight-based dosing when appropriate to reduce radiation dose to as low as reasonably achievable. Dictated by Zainab Obando MD @ Sep 16 2019 6:11PM Signed by Dr. Zainab Obando @ Sep 16 2019 6:25PM
[2019-09-16] MEDS: Dextrose 5%-Lactated Ringers 1,000 ML IV SCH (18:50)
[2019-09-16] MEDS: tiZANidine 4 MG Tab PO PRN (20:56)
[2019-09-16] MEDS: Estradiol 0.5 MG Tab PO SCH (20:57)
[2019-09-16] MEDS: traZODone 50 MG Tab PO SCH (20:57)
[2019-09-16] MEDS: Loratadine 10 MG Tab PO PRN (20:57)
[2019-09-16] MEDS ORDERED: diphenhydrAMINE 50 MG/ML SDV IVPUSH PRN (21:06)
[2019-09-17] MEDS: Dextrose 5%-Lactated Ringers 1,000 ML IV SCH ×3 (02:46→18:13)
[2019-09-17] MEDS ORDERED: Estradiol 0.5 MG Tab PO SCH (09:00)
[2019-09-17] MEDS ORDERED: Bisacodyl 5 MG Tab PO ONE ×2 (09:00→17:00)
[2019-09-17] MEDS: Iohexol 300 MG/ML 30 ML Bottle IVPUSH ONE ×2 (09:56→09:57)
[2019-09-17] MEDS ORDERED: fentaNYL/Normal Saline 600 MCG/30 ML PCA Vial IV PRN (10:00)
--- NOTE | 2019-09-17 11:52 | PCM.CONSN ---
- General Info Date of Service: 09/17/19 Subjective Update: Ms. Musa Dueñas use to experience cramping pain in her abdomen/suprapubic area. CT scan was obtained yesterday afternoon shows no acute abnormalities. White blood cell count, CRP, and sedimentation rate are all within normal range. Functional Status: Reports: Ambulating, Urinating. Denies: Tolerating Diet - Review of Systems General: Denies: Fever, Chills Pulmonary: Reports: No Symptoms Cardiovascular: Reports: No Symptoms Gastrointestinal: Reports: Abdominal Pain, Decreased Appetite, Nausea. Denies: Diarrhea, Difficulty Swallowing, Vomiting Genitourinary: Reports: Dysuria, Frequency, Urgency, Retention - Patient Data Vitals - Most Recent: Last Vital Signs Temp 97.3 F 09/17/19 11:00 Pulse 68 09/17/19 11:00 Resp 20 09/17/19 11:00 BP 98/53 L 09/17/19 11:00 Pulse Ox 95 09/17/19 11:00 Weight - Most Recent: 169 lb I&O - Last 24 Hours: Intake & Output 09/16/19 09/17/19 09/17/19 22:59 06:59 14:59 Intake Total 360 1890 300 Output Total 3686 563 1607 Balance -1390 1190 -1250 Lab Results Last 24 Hours: Laboratory Results - last 24 hr 09/16/19 09/16/19 09/16/19 Range/Units 15:37 15:37 15:37 WBC (4.5-11.0) K/uL RBC (3.30-5.50) M/uL Hgb (12.0-15.0) g/dL Hct (36.0-48.0) % MCV (80-98) fL MCH (27-31) pg MCHC (32-36) % Plt Count (150-400) K/uL ESR 16 (0-25) mm/hr Sodium (140-148) mmol/L Potassium (3.6-5.2) mmol/L Chloride (100-108) mmol/L Carbon Dioxide (21-32) mmol/L Anion Gap (5.0-14.0) mmol/L BUN (7-18) mg/dL Creatinine (0.6-1.0) mg/dL Est Cr Clr Drug Dosing mL/min Estimated GFR (MDRD) (>60) Glucose (74-106) mg/dL Lactic Acid 1.0 (0.4-2.0) mmol/L Calcium (8.5-10.1) mg/dL Phosphorus (2.5-4.9) mg/dL Magnesium (1.8-2.4) mg/dL Ferritin (8-388) ng/ml Total Bilirubin (0.2-1.0) mg/dL AST (15-37) U/L ALT (12-78) U/L Alkaline Phosphatase (46-116) U/L C-Reactive Protein 0.28 (0.0-0.3) mg/dL Total Protein (6.4-8.2) g/dL Albumin (3.4-5.0) g/dL Globulin (2.3-3.5) g/dL Albumin/Globulin Ratio (1.2-2.2) Vitamin B12 (193-986) pg/ml 09/16/19 09/16/19 Range/Units 15:44 15:44 WBC 4.3 L (4.5-11.0) K/uL RBC 4.10 (3.30-5.50) M/uL Hgb 12.1 (12.0-15.0) g/dL Hct 38.2 (36.0-48.0) % MCV 93 (80-98) fL MCH 30 (27-31) pg MCHC 32 (32-36) % Plt Count 325 (150-400) K/uL ESR (0-25) mm/hr Sodium 140 (140-148) mmol/L Potassium 3.6 (3.6-5.2) mmol/L Chloride 102 (100-108) mmol/L Carbon Dioxide 30 (21-32) mmol/L Anion Gap 8.1 (5.0-14.0) mmol/L BUN 9 (7-18) mg/dL Creatinine 0.6 (0.6-1.0) mg/dL Est Cr Clr Drug Dosing 92.56 mL/min Estimated GFR (MDRD) > 60 (>60) Glucose 88 (74-106) mg/dL Lactic Acid (0.4-2.0) mmol/L Calcium 9.4 (8.5-10.1) mg/dL Phosphorus 3.4 (2.5-4.9) mg/dL Magnesium 2.1 (1.8-2.4) mg/dL Ferritin 317 (8-388) ng/ml Total Bilirubin 0.3 (0.2-1.0) mg/dL AST 25 D (15-37) U/L ALT 42 D (12-78) U/L Alkaline Phosphatase 127 H (46-116) U/L C-Reactive Protein (0.0-0.3) mg/dL Total Protein 7.2 (6.4-8.2) g/dL Albumin 3.9 (3.4-5.0) g/dL Globulin 3.3 (2.3-3.5) g/dL Albumin/Globulin Ratio 1.2 (1.2-2.2) Vitamin B12 1847 H (193-986) pg/ml Med Orders - Current: Current Medications Bisacodyl (Dulcolax) 10 mg PO ONETIME ONE Stop: 09/17/19 17:01 Diphenhydramine HCl (Benadryl) 25 - 50 mg IVPUSH Q4H PRN PRN Reason: Itching Last Admin: 09/16/19 22:41 Dose: 50 mg Estradiol (Estradiol) 0.5 mg PO BEDTIME SALINAS Last Admin: 09/16/19 20:57 Dose: 0.5 mg Fentanyl Citrate (Fentanyl In Ns 20 Mcg/Ml 30 Ml Facepiece Line Supervisor) 0 mcg IV ASDIRECTED PRN; Protocol PRN Reason: Pain Last Admin: 09/17/19 10:48 Dose: 600 mcg Dextrose/Lactated Ringer's (Dextrose 5%-Lactated Ringers) 1,000 mls @ 125 mls/ hr IV ASDIRECTED SALINAS Last Admin: 09/17/19 10:43 Dose: 125 mls/hr Loratadine (Claritin) 10 mg PO DAILY PRN PRN Reason: ALLERGIES Last Admin: 09/16/19 20:57 Dose: 10 mg Naloxone HCl (Narcan) 0.1 mg IV ASDIRECTED PRN PRN Reason: decreased respiratory rate Ondansetron HCl (Zofran) 4 mg IVPUSH Q4H PRN PRN Reason: Nausea Last Admin: 09/16/19 20:56 Dose: 4 mg Pantoprazole Sodium (Protonix Iv) 40 mg IV Q24H SALINAS Last Admin: 09/16/19 16:05 Dose: 40 mg Polyethylene Glycol (Miralax) 238 gm PO ONETIME ONE Stop: 09/17/19 14:01 Sodium Chloride (Saline Flush) 10 ml FLUSH ASDIRECTED PRN PRN Reason: Keep Vein Open Last Admin: 09/16/19 17:47 Dose: 10 ml Tamsulosin HCl (Flomax) 0.4 mg PO PCBREAKFAST [facility] Tizanidine HCl (Zanaflex) 4 mg PO BID PRN PRN Reason: Muscle Spasm Last Admin: 09/16/19 20:56 Dose: 4 mg Trazodone HCl (Trazodone) 50 mg PO BEDTIME SALINAS Last Admin: 09/16/19 20:57 Dose: 50 mg Discontinued Medications Bisacodyl (Dulcolax) 10 mg PO ONETIME ONE Stop: 09/17/19 09:01 Last Admin: 09/17/19 08:53 Dose: 10 mg Estradiol (Estradiol) 0.5 mg PO DAILY [facility] Hydromorphone HCl (Dilaudid Facepiece Line Supervisor 15 Mg In Ns 30 Ml) 0 mg IV ASDIRECTED PRN; Protocol 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 Stop: 09/17/19 09:55 Last Admin: 09/16/19 16:39 Dose: 15 mg Lactated Ringer's (Ringers, Lactated) 1,000 mls @ 334 mls/hr IV ONETIME ONE Stop: 09/16/19 18:29 Last Admin: 09/16/19 15:39 Dose: 334 mls/hr Sodium Chloride (Normal Saline) 80 mls @ 3 mls/sec IV ASDIRECTED [facility] Stop: 09/16/19 18:00 Last Admin: 09/16/19 17:55 Dose: 3 mls/sec Iohexol (Omnipaque) Confirm Administered Dose 30 ml .ROUTE .STK-MED ONE Stop: 09/16/19 15:41 Last Admin: 09/16/19 14:58 Dose: Not Given Iohexol (Omnipaque) 30 ml IVPUSH ONETIME ONE Stop: 09/16/19 15:31 Last Admin: 09/16/19 16:03 Dose: 30 ml - Exam Quality Assessment: DVT Prophylaxis General: Alert, Oriented, Cooperative, Moderate Distress Lungs: Clear to Auscultation, Normal Respiratory Effort Cardiovascular: Regular Rate, Regular Rhythm, No Murmurs GI/Abdominal Exam: Soft, No Organomegaly, Tender. No: Distended, Guarding, Rigid, Rebound Extremities: Non-Tender, No Pedal Edema Consult PN Assessment/Plan Procedures: Procedures BLOOD TYPING SEROLOGIC ABO (07/14/16) BLOOD TYPING SEROLOGIC RH(D) (07/14/16) BREAST TOMOSYNTHESIS BI (08/08/19) COMP SCREEN MAMMOGRAM ADD-ON (09/18/15) CT ABD & PELV W/CONTRAST (09/12/19) CULTURE SCREEN ONLY (06/07/16) DIAGNOSTIC COLONOSCOPY (06/30/17) EGD BALLOON DIL ESOPH30 MM/> (02/01/17) EGD BIOPSY SINGLE/MULTIPLE (06/07/16) EGD DILATE STRICTURE (02/14/17) ELECTRICAL STIMULATION (10/31/13) EMERGENCY DEPT VISIT (01/16/15) GLUCOSE BLOOD TEST (01/16/15) HOT OR COLD PACKS THERAPY (10/16/15) INJECT TRIGGER POINTS 3/> (11/18/15) LAP INC DUDLEY RECUR COMP (12/25/18) LAPARO PROC ABDM/PER/OMENT (12/25/18) MANUAL THERAPY 1/> REGIONS (11/18/15) MEASURE BLOOD OXYGEN LEVEL (12/25/18) POLYSOM 6/>YRS CPAP 4/> PARM (02/08/16) PT EVALUATION (09/17/15) PT RE-EVALUATION (10/14/13) RBC ANTIBODY SCREEN (07/14/16) SCR MAMMO BI INCL CAD (08/08/19) SUSPEND BOWEL W/PROSTHESIS (12/25/18) THERAPEUTIC EXERCISES (10/16/15) TISSUE EXAM BY PATHOLOGIST (12/25/18) TISSUE EXAM BY PATHOLOGIST (06/07/16) TTE W/DOPPLER COMPLETE (07/28/16) ULTRASOUND THERAPY (11/18/15) URINALYSIS AUTO W/SCOPE (12/25/18) URINE CULTURE/COLONY COUNT (12/25/18) X-RAY EXAM L-S SPINE 2/3 VWS (08/10/16) Problem List Initiated/Reviewed/Updated: Yes My Orders Last 24 Hours: My Active Orders 09/17/19 11:46 Tamsulosin [Flomax] 0.4 mg PO PCBREAKFAST Plan: ASSESSMENT AND RECOMMENDATIONS LEFT LOWER QUADRANT ABDOMINAL PAIN-intense cramping pain in the lower left lower quadrant, lasting several seconds and occurring several times per hour. Present for the past 2 weeks, following 2 recent surgeries for small bowel obstruction. Did have one episode of constipation which occurred early in the course of this pain. Since then she has been experiencing daily bowel movements. CT scan and the markers of inflammation are all negative. She has experienced symptoms of hesitancy and pain with urination. Symptoms still sound to be most consistent with a mechanical partial obstruction, no evidence of significant underlying inflammation or infection. -Colonoscopy tomorrow for further evaluation -Urinalysis to evaluate for underlying bladder infection -Flomax 0.4 mg by mouth daily
[2019-09-17] MEDS: Tamsulosin 0.4 MG Cap.ER PO SCH (13:20)
[2019-09-17] MEDS ORDERED: Polyethylene Glycol 3350 Powder 238 GM Bot PO ONE (14:00)
[2019-09-17] MEDS: Pantoprazole 40 MG Vial IV SCH (16:50)
[2019-09-17] MEDS: Loratadine 10 MG Tab PO PRN (20:13)
[2019-09-17] MEDS: tiZANidine 4 MG Tab PO PRN (20:13)
[2019-09-17] MEDS: traZODone 50 MG Tab PO SCH (20:14)
[2019-09-17] MEDS: Estradiol 0.5 MG Tab PO SCH (20:14)
[2019-09-18] MEDS: Dextrose 5%-Lactated Ringers 1,000 ML IV SCH ×2 (02:07→08:16)
[2019-09-18] MEDS: Ondansetron 4 MG/2 ML SDV IVPUSH PRN (06:14)
[2019-09-18] MEDS ORDERED: fentaNYL 100 MCG/2 ML SDV ONE (07:08)
[2019-09-18] MEDS ORDERED: Propofol 200 MG/20 ML SDV ONE ×2 (07:09→07:23)
[2019-09-18] MEDS ORDERED: Midazolam 1 MG/ML 2 ML SDV ONE (07:09)
--- NOTE | 2019-09-18 09:52 | PN ---
DATE OF SERVICE: 09/18/2019 SUBJECTIVE: Zaria continues to have sharp inside cramping. She did have the colon prep. Bowel movement returns are clear, and she will be having a colonoscopy this morning. REVIEW OF SYSTEMS: Remainder of review of systems negative for any pertinent positives and negatives. OBJECTIVE: GENERAL: Zaria Vigil is a 53-year-old female. VITAL SIGNS: TPR is 97.5, 74, 16, blood pressure 117/61. HEENT: Negative. NECK: Supple. HEART: Regular rate and rhythm. LUNGS: Clear. ABDOMEN: Soft, nontender. EXTREMITIES: Without peripheral edema. ASSESSMENT: Left lower quadrant abdominal pain (intense cramping). PLAN: Orders to be written post colonoscopy. Clementina Anna PA-C /[id number]
[2019-09-18] MEDS: Tamsulosin 0.4 MG Cap.ER PO SCH (09:55)
[2019-09-18 11:47] VITALS: BP 114/54; PULSE 73
--- NOTE | 2019-09-18 12:15 | PCM.CONSN ---
- General Info Date of Service: 09/18/19 Subjective Update: Ms. Vigil has been stable since yesterday but continues to experience lower cramping abdominal pain. Colonoscopy performed today by Dr. Perez showing only very mild colitis. Not likely to represent cause of her current pain. Functional Status: Reports: Ambulating, Urinating - Review of Systems General: Reports: No Symptoms Pulmonary: Reports: No Symptoms Cardiovascular: Reports: No Symptoms Gastrointestinal: Reports: Abdominal Pain. Denies: Difficulty Swallowing, Nausea, Vomiting - Patient Data Vitals - Most Recent: Last Vital Signs Temp 98 F 09/18/19 11:45 Pulse 73 09/18/19 11:45 Resp 16 09/18/19 11:45 BP 114/54 L 09/18/19 11:45 Pulse Ox 94 L 09/18/19 11:45 Weight - Most Recent: 169 lb I&O - Last 24 Hours: Intake & Output 09/17/19 09/18/19 09/18/19 22:59 06:59 14:59 Intake Total 5051 1422 75 Balance 5051 1422 75 Lab Results Last 24 Hours: Laboratory Results - last 24 hr 09/17/19 Range/Units 13:17 Urine Color Yellow (YELLOW) Urine Appearance Clear (CLEAR) Urine pH 6.0 (5.0-8.0) Ur Specific Randolph 1.010 (1.008-1.030) Urine Protein Negative (NEGATIVE) mg/dL Urine Glucose (UA) Negative (NEGATIVE) mg/dL Urine Ketones Negative (NEGATIVE) mg/dL Urine Occult Blood Negative (NEGATIVE) Urine Nitrite Negative (NEGATIVE) Urine Bilirubin Negative (NEGATIVE) Urine Urobilinogen 0.2 (0.2-1.0) EU/dL Ur Leukocyte Esterase Negative (NEGATIVE) Urine RBC 0-5 (0-5) Urine WBC 0-5 (0-5) Ur Epithelial Cells Few Amorphous Sediment Rare Urine Bacteria Not seen Urine Mucus Rare Jaya Results Last 24 Hours: Microbiology 09/18/19 08:08 Clostridioides difficile (PCR) - Final Stool / Feces - Stool, Liquid 09/18/19 08:08 Stool for WBCs - Final Stool / Feces - Stool, Liquid NO WBC SEEN REFERENCE RANGE: NO WBC SEEN Med Orders - Current: Current Medications Diphenhydramine HCl (Benadryl) 25 - 50 mg IVPUSH Q4H PRN PRN Reason: Itching Last Admin: 09/16/19 22:41 Dose: 50 mg Estradiol (Estradiol) 0.5 mg PO BEDTIME [facility] Last Admin: 09/17/19 20:14 Dose: 0.5 mg Fentanyl Citrate (Fentanyl In Ns 20 Mcg/Ml 30 Ml Boat [employer] Utility Supervisor) 0 mcg IV ASDIRECTED PRN; Protocol PRN Reason: Pain Last Admin: 09/17/19 10:48 Dose: 600 mcg Dextrose/Lactated Ringer's (Dextrose 5%-Lactated Ringers) 1,000 mls @ 125 mls/ hr IV ASDIRECTED SALINAS Last Admin: 09/18/19 08:16 Dose: 125 mls/hr Loratadine (Claritin) 10 mg PO DAILY PRN PRN Reason: ALLERGIES Last Admin: 09/17/19 20:13 Dose: 10 mg Naloxone HCl (Narcan) 0.1 mg IV ASDIRECTED PRN PRN Reason: decreased respiratory rate Ondansetron HCl (Zofran) 4 mg IVPUSH Q4H PRN PRN Reason: Nausea Last Admin: 09/18/19 06:14 Dose: 4 mg Pantoprazole Sodium (Protonix Iv) 40 mg IV Q24H [facility] Last Admin: 09/17/19 16:50 Dose: 40 mg Sodium Chloride (Saline Flush) 10 ml FLUSH ASDIRECTED PRN PRN Reason: Keep Vein Open Last Admin: 09/16/19 17:47 Dose: 10 ml Tamsulosin HCl (Flomax) 0.4 mg PO [facility]AKFAST [facility] Last Admin: 09/18/19 09:55 Dose: 0.4 mg Tizanidine HCl (Zanaflex) 4 mg PO BID PRN PRN Reason: Muscle Spasm Last Admin: 09/17/19 20:13 Dose: 4 mg Trazodone HCl (Trazodone) 50 mg PO [facility]TIME [facility] Last Admin: 09/17/19 20:14 Dose: 50 mg Discontinued Medications Bisacodyl (Dulcolax) 10 mg PO ONETIME ONE Stop: 09/17/19 09:01 Last Admin: 09/17/19 08:53 Dose: 10 mg Bisacodyl (Dulcolax) 10 mg PO ONETIME ONE Stop: 09/17/19 17:01 Last Admin: 09/17/19 16:50 Dose: 10 mg Estradiol (Estradiol) 0.5 mg PO DAILY [facility] Fentanyl (Sublimaze) Confirm Administered Dose 100 mcg .ROUTE .STK-MED ONE Stop: 09/18/19 07:09 Hydromorphone HCl (Dilaudid [employer] Utility Supervisor 15 Mg In Ns 30 Ml) 0 mg IV ASDIRECTED PRN; Protocol PRN Reason: 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 PAIN CONTROL Stop: 09/17/19 09:55 Last Admin: 09/16/19 16:39 Dose: 15 mg Lactated Ringer's (Ringers, Lactated) 1,000 mls @ 334 mls/hr IV ONETIME ONE Stop: 09/16/19 18:29 Last Admin: 09/16/19 15:39 Dose: 334 mls/hr Sodium Chloride (Normal Saline) 80 mls @ 3 mls/sec IV ASDIRECTED [facility] Stop: 09/16/19 18:00 Last Admin: 09/16/19 17:55 Dose: 3 mls/sec Iohexol (Omnipaque) Confirm Administered Dose 30 ml .ROUTE .STK-MED ONE Stop: 09/16/19 15:41 Last Admin: 09/16/19 14:58 Dose: Not Given Iohexol (Omnipaque) 30 ml IVPUSH ONETIME ONE Stop: 09/16/19 15:31 Last Admin: 09/16/19 16:03 Dose: 30 ml Midazolam HCl (Versed 1 Mg/Ml) Confirm Administered Dose 2 mg .ROUTE .STK-MED ONE Stop: 09/18/19 07:10 Polyethylene Glycol (Miralax) 238 gm PO ONETIME ONE Stop: 09/17/19 14:01 Last Admin: 09/17/19 13:20 Dose: 238 gm Propofol (Diprivan 20 Ml) Confirm Administered Dose 200 mg .ROUTE .STK-MED ONE Stop: 09/18/19 07:10 Propofol (Diprivan 20 Ml) Confirm Administered Dose 200 mg .ROUTE .STK-MED ONE Stop: 09/18/19 07:24 - Exam General: Alert, Oriented, Cooperative, Mild Distress Lungs: Clear to Auscultation, Normal Respiratory Effort Cardiovascular: Regular Rate, Regular Rhythm, No Murmurs GI/Abdominal Exam: Soft, No Organomegaly, Tender. No: Distended, Guarding, Rigid, Rebound Consult PN Assessment/Plan Procedures: Procedures BLOOD TYPING SEROLOGIC ABO (07/14/16) BLOOD TYPING SEROLOGIC RH(D) (07/14/16) BREAST TOMOSYNTHESIS BI (08/08/19) COMP SCREEN MAMMOGRAM ADD-ON (09/18/15) CT ABD & PELV W/CONTRAST (09/12/19) CULTURE SCREEN ONLY (06/07/16) DIAGNOSTIC COLONOSCOPY (06/30/17) EGD BALLOON DIL ESOPH30 MM/> (02/01/17) EGD BIOPSY SINGLE/MULTIPLE (06/07/16) EGD DILATE STRICTURE (02/14/17) ELECTRICAL STIMULATION (10/31/13) EMERGENCY DEPT VISIT (01/16/15) GLUCOSE BLOOD TEST (01/16/15) HOT OR COLD PACKS THERAPY (10/16/15) INJECT TRIGGER POINTS 3/> (11/18/15) LAP INC DUDLEY RECUR COMP (12/25/18) LAPARO PROC ABDM/PER/OMENT (12/25/18) MANUAL THERAPY 1/> REGIONS (11/18/15) MEASURE BLOOD OXYGEN LEVEL (12/25/18) POLYSOM 6/>YRS CPAP 4/> PARM (02/08/16) PT EVALUATION (09/17/15) PT RE-EVALUATION (10/14/13) RBC ANTIBODY SCREEN (07/14/16) SCR MAMMO BI INCL CAD (08/08/19) SUSPEND BOWEL W/PROSTHESIS (12/25/18) THERAPEUTIC EXERCISES (10/16/15) TISSUE EXAM BY PATHOLOGIST (12/25/18) TISSUE EXAM BY PATHOLOGIST (06/07/16) TTE W/DOPPLER COMPLETE (07/28/16) ULTRASOUND THERAPY (11/18/15) URINALYSIS AUTO W/SCOPE (12/25/18) URINE CULTURE/COLONY COUNT (12/25/18) X-RAY EXAM L-S SPINE 2/3 VWS (08/10/16) Problem List Initiated/Reviewed/Updated: Yes My Orders Last 24 Hours: My Active Orders 09/17/19 11:46 Tamsulosin [Flomax] 0.4 mg PO PCBREAKFAST Plan: ASSESSMENT AND RECOMMENDATIONS LEFT LOWER QUADRANT ABDOMINAL PAIN-persistent symptoms of pain, no specific etiology identified. Colonoscopy unremarkable except for very mild scattered areas of inflammation. No evidence of significant obstruction, evaluation has otherwise been negative -Hold on any further evaluation or intervention pending gastroenterology consult -GI consult September 20
--- NOTE | 2019-09-19 09:35 | DISCH ---
ADMISSION DIAGNOSIS: 1. Left lower quadrant abdominal pain, increased cramping. 2. Status post exploratory laparotomy, small-bowel resection of the jejunojejunostomy, secondary enteroenterostomy to re-establish Marjorie-en-Y small bowel anatomy and placement of Interceed mesh to limit recurrent adhesion formation between abdominal and pelvic wall, overlying mesh and underlying viscera. Date of surgery, 08/26/2019. 3. Unspecified postsurgical malabsorption. 4. Status post Marjorie-en-Y gastric bypass surgery. 5. B12 deficiency. 6. B complex deficiency. 7. Adhesive arachnoiditis. 8. Allergic rhinitis. 9. Celiac disease. 10.Chronic low back pain. 11.Cervical degenerative disk disease. 12.Iron deficiency anemia. 13.Long-term current use of opioid analgesic. 14.Premature ventricular contractions. 15.Sacroiliac joint dysfunction. 16.Recent surgery July 2019. DISCHARGE DIAGNOSES: Status post colonoscopy, 09/18/2019, showing very mild colitis, persistent lower abdominal cramping. HISTORY: Chelsea Vigil is a 53-year-old female, who had exploratory laparotomy with small bowel resection at the jejunojejunostomy secondary to enteroenterostomy to re- establish Marjorie-en-Y small bowel anatomy and placement of Interceed mesh to limit recurrent adhesion formation between abdominal and pelvic wall, overlying mesh and underlying viscera on 08/26/2019. Since she has had that surgery, she has had severe lower abdominal cramping and UAs have been negative. CTs have been negative. She was hospitalized on 09/17/2019 for further evaluation. HOSPITAL COURSE: She had a consult from Franklyn Renteria, the hospitalist, and a CT was obtained. Stool cultures and C. diff were completed and negative. Laboratory tests were all within normal limits. UA was negative. The EGD on 09/18/2019 showed mild colitis. Chelsea has an already scheduled appointment with rib builder in [facility] on Monday09/20/2019, and she was discharged to home. REVIEW OF SYSTEMS: HEENT: Negative. NECK: Supple. HEART: Negative. LUNGS: Negative. ABDOMEN: As above. : Negative. EXTREMITIES: Chronic low back pain. NEUROLOGIC: Negative. PSYCHIATRIC: Mood and affect appropriate. Remainder of review of systems negative for any pertinent positives and negatives. OBJECTIVE: GENERAL: Remedios Vigil is a 53-year-old female. Height is 5 feet 4 inches, weight is 169 pounds. VITAL SIGNS: TPR is 98, 73, 16. Blood pressure is 114/54. HEENT: Negative. NECK: Supple. HEART: Regular rate and rhythm. LUNGS: Clear. ABDOMEN: Soft and nontender. EXTREMITIES: Without peripheral edema. DISPOSITION: Discharged to home. CONDITION: Stable and improving. FOLLOWUP: With Clementina Anna PA-C, 10/02/2019 at 9 a.m. DISCHARGE MEDICATIONS: She is to resume her home medications. Tylenol 650 mg every 6 hours; biotin 1000 mg oral daily; calcium citrate 1 twice daily; vitamin D3, 5000 international units daily; vitamin B12, 25 mcg sublingual daily; Bentyl 10 mg 4 times a day, Levsin 0.125 mg oral every 4 hours p.r.n. cramping, either take Levsin or Bentyl, not both together; Dilaudid 2 mg every 4 hours p.r.n. pain; folic acid 1 mg; Estrace 0.5 mg oral daily; Claritin 10 mg oral daily; multivitamin 1 tablet twice daily; Zofran ODT 4 mg every 4 hours; vitamin B complex 1 tablet at bedtime; Zanaflex, she takes 8 mg at bedtime; tramadol 50 mg every 4 hours, do not take with Dilaudid; and trazodone 50 mg at bedtime. DIET: Step 2 gastric bypass diet for 2 weeks. Drink 8 to 10 glasses of water a day. ACTIVITY: As tolerated. No lifting greater than 10 pounds for [address] while on pain medication. May shower. Notify provider if any fever, increased pain, nausea, vomiting.
--- NOTE | 2019-09-19 11:08 | PN ---
DATE OF SERVICE: 09/17/2019 The patient was admitted yesterday with continued lower abdominal pain. She had some discomfort overnight. The Dilaudid INSTRUCTIONAL TECHNOLOGY COACH has given her some itching and will switch to a fentanyl INSTRUCTIONAL TECHNOLOGY COACH today. Otherwise, on evaluation, Dr. Renteria felt we need to proceed with a colonoscopy, and she will have a colonoscopy prep today. We will proceed with a colonoscopy tomorrow morning. While she is on the colonoscopy prep, we will have her take some Ensure Clear to try to limit any additional nutritional deficits. Potential risks of colonoscopy including bleeding and perforation were discussed, and the patient wishes to proceed. Eliazar Perez MD /[id number]
--- NOTE | 2019-09-19 11:17 | OR ---
DATE OF PROCEDURE: 09/18/2019 SURGEON: Eliazar Perez MD PREOPERATIVE DIAGNOSIS: Crampy lower abdominal pain. POSTOPERATIVE DIAGNOSIS: Crampy lower abdominal pain with very focal mild colitis involving sigmoid colon. OPERATIVE PROCEDURE: Flexible colonoscopy with: 1. Collection of stool for microbiologic workup. 2. Biopsies of areas of focal colitis sigmoid colon. ANESTHESIA: IV sedation. INDICATION FOR PROCEDURE: A 53-year-old admitted with appearance of intense crampy lower abdominal pain that is associated with some increased discomfort when trying to urinate or move her bowels. Workup thus far has been negative. She is to undergo flexible colonoscopy with biopsies and/or polypectomy as indicated. Potential risks including bleeding and perforation were discussed, and the patient wishes to proceed. PROCEDURE IN DETAIL: The patient was taken to the operating room and placed in a left lateral decubitus position. IV sedation was administered, after which the initial digital rectal exam was performed and was unremarkable. Colonoscope was then passed into the rectum with retroflexion revealing uncomplicated hemorrhoidal columns. Scope was eventually passed to the level of the cecum. The prep was fairly good with there only being a small amount of liquid stool present, but essentially no areas of mucosa were not adequately visualized. The only abnormalities were that of some scattered uncomplicated diverticula in the left colon, and in the sigmoid colon at around 40 cm from the dentate line, there was some patchy red and slightly edematous areas, photodocumentation was performed. These were associated with some red patchy areas. Apart from that, no areas of additional colitis or signs of neoplasia or polyps were seen. At this point, after photodocumentation, biopsies were obtained from the areas of the focal colitis for histologic evaluation. Stool was collected along the way and sent for full microbiologic workup as well. Minimal bleeding from the biopsy sites was seen, and the procedure was then concluded. The patient was taken to the recovery room in satisfactory condition. Eliazar Perez MD /[id number]
== END 2019-09-18 14:15 | disposition home or self-care (01) | DRG 249 ==
LOC: JP.ICU 14:58 → JP.MS 17:48
PROVIDERS: ADMIT Surgery; ATTEND Surgery
PROC: 0DBN8ZX Excision of Sigmoid Colon, Via Natural or Artificial Opening Endoscopic, Diagnostic (ICD-10-PCS; principal; 2019-09-18)
DX: K52.9 Noninfective gastroenteritis and colitis, unspecified (principal); K59.00 Constipation, unspecified; K91.2 Postsurgical malabsorption, not elsewhere classified; E53.8 Deficiency of other specified B group vitamins; E53.9 Vitamin B deficiency, unspecified; M54.5 Low back pain; G89.29 Other chronic pain; M50.30 Other cervical disc degeneration, unspecified cervical region; D50.9 Iron deficiency anemia, unspecified; K21.9 Gastro-esophageal reflux disease without esophagitis; M81.0 Age-related osteoporosis without current pathological fracture; Z96.653 Presence of artificial knee joint, bilateral; M19.90 Unspecified osteoarthritis, unspecified site; Z90.49 Acquired absence of other specified parts of digestive tract; Z98.84 Bariatric surgery status; Z91.09 Other allergy status, other than to drugs and biological substances; Z88.5 Allergy status to narcotic agent; Z88.0 Allergy status to penicillin; Z88.1 Allergy status to other antibiotic agents; Z88.8 Allergy status to other drugs, medicaments and biological substances; Z79.899 Other long term (current) drug therapy; Z90.89 Acquired absence of other organs; Z90.710 Acquired absence of both cervix and uterus; Z98.1 Arthrodesis status
CPT/HCPCS: 36415; 74177; 80053; 81001; 82607; 82728; 83605; 83735; 84100; 85027; 85651; 86140; 87046; 87177; 87209; 87493; 87899; 88305; 89055; 94762; A9270-GY; C9113; J1170; J1200; J2250; J2405; J2704; J3010; J7030; J7042; J7120; Q9967

== ENCOUNTER 2020-03-06 00:42 | Emergency (ER) | payer BC ==
[2020-03-06] MEDS ORDERED: Metoclopramide 10 MG/2 ML SDV IVPUSH ONE (01:14)
[2020-03-06] MEDS ORDERED: HYDROmorphone 0.5 MG/0.5 ML Syringe IVPUSH ONE ×2 (01:14→01:29)
[2020-03-06] MEDS ORDERED: Lactated Ringers 1,000 ML IV SCH (01:15)
--- NOTE | 2020-03-06 01:23 | EDM.PDOC ---
ED HPI GENERAL MEDICAL PROBLEM - General Chief Complaint: Abdominal Pain Stated Complaint: STOMACH PAINS Time Seen by Provider: 03/06/20 01:05 Source of Information: Reports: Patient, Old Records, RN History Limitations: Reports: No Limitations - History of Present Illness INITIAL COMMENTS - FREE TEXT/NARRATIVE: 54 yo female presents with abdominal pain that began about 10 hrs ago. She has had nausea without vomiting. No fever. Eating or drinking makes her symptoms worse. She has a pHx of Marjor[place]-Y gastric bypass and multiple episodes of bowel obstructions(she thinks this feels like that). Sx's have progressed since they began 10 hrs ago. Pain radiates to her back. Onset: Gradual Onset Date: 03/05/20 Duration: Hour(s): (~10 hrs.), Getting Worse Location: Reports: Abdomen Quality: Reports: Ache Severity: Moderate Improves with: Reports: None Worsens with: Reports: Eating, Other (time) Context: Reports: Other (See HPI) Associated Symptoms: Reports: Nausea/Vomiting (no vomiting). Denies: Diaphoresis, Fever/Chills Treatments PROPERTY UNDERWRITER: Reports: Other (see below) (none) Lower Abdomen Pain Score (Numeric/FACES): 8 - Related Data Allergies Allergy/AdvReac Type Severity Reaction Status Date / Time meropenem [From Merrem] Allergy Intermediate Redness Verified 03/06/20 00:55 hydromorphone [From Dilaudid] Allergy Mild Itching Verified 03/06/20 00:55 chlorhexidine Allergy Rash Verified 03/06/20 00:55 hydrocodone Allergy Itching Verified 03/06/20 00:55 water for injection,sterile Allergy Cannot Verified 03/06/20 00:55 [From Reclast] Remember zoledronic acid Allergy Cannot Verified 03/06/20 00:55 [From Reclast] Remember amoxicillin [Amoxicillin] AdvReac Vomiting Verified 03/06/20 00:55 benzoin AdvReac Blisters Verified 03/06/20 00:55 ciprofloxacin AdvReac Nausea and Verified 03/06/20 00:55 Vomiting clavulanic acid AdvReac Nausea and Verified 03/06/20 00:55 [From Augmentin] Vomiting doxycycline AdvReac Nausea and Verified 03/06/20 00:55 Vomiting mannitol [From Reclast] AdvReac Nausea and Verified 03/06/20 00:55 Vomiting pantoprazole AdvReac Diarrhea Verified 03/06/20 00:55 adhesive tape Allergy Rash Uncoded 12/24/18 06:23 Home Meds: Home Meds Estradiol [Estrace] 0.5 mg PO DAILY 09/24/14 [History] Loratadine [Claritin] 10 mg PO DAILY 09/24/14 [History] Cholecalciferol (Vitamin D3) [Vitamin D] 5,000 units PO DAILY 09/25/14 [History] Folic Acid 1 mg PO DAILY 12/27/16 [History] Biotin 10,000 mg PO DAILY 12/29/16 [History] Vitamin B Complex [B Complex] 1 tab PO BEDTIME 06/28/17 [History] Multivitamin [Flintstones] 2 tab PO DAILY 06/30/17 [History] Calcium Carb/Magnesium Oxid/D3 [Calcium Magnesium + D] 1 each PO DAILY 03/28/18 [History] Hyoscyamine [Levsin] 0.125 mg PO Q4HR PRN 12/21/18 [History] Ondansetron [Zofran ODT] 4 mg PO Q4H PRN 12/21/18 [History] Cyanocobalamin (Vitamin B-12) [Vitamin B-12] 2,500 mcg SL DAILY 12/24/18 [ History] Acetaminophen [Tylenol] 650 mg PO Q6H tablet 12/26/18 [Rx] traZODone HCl [Trazodone HCl] 50 mg PO BEDTIME 08/08/19 [History] tiZANidine [Zanaflex] 8 mg PO BEDTIME 08/26/19 [History] Past Medical History HEENT History: Reports: Allergic Rhinitis, Glaucoma, Impaired Vision Other HEENT History: wears glasses Cardiovascular History: Reports: Arrhythmia Other Cardiovascular History: PVCs Respiratory History: Reports: Bronchitis, Recurrent Gastrointestinal History: Reports: Celiac Disease, Cholelithiasis, Gastritis, GERD, Hiatal Hernia Other Gastrointestinal History: celiac disease Genitourinary History: Reports: None CLINIC SPECIALIST History: Reports: Endometriosis, Fibroids, Musculoskeletal History: Reports: Arthritis, Back Pain, Chronic, Fracture, Neck Pain, Chronic, Osteoarthritis, Osteoporosis Other Musculoskeletal History: fx right foot,ankle and wrist fx left toe, fusions lower back and neck Neurological History: Reports: None Psychiatric History: Reports: None Endocrine/Metabolic History: Reports: Obesity/BMI 30+, Vitamin D Deficiency Hematologic History: Reports: Anemia, B12 Deficiency, Folic Acid, Iron Deficiency Immunologic History: Reports: None Oncologic (Cancer) History: Reports: None Dermatologic History: Reports: Other (See Below) Other Dermatologic History: "sensitive skin" - Infectious Disease History Infectious Disease History: Reports: Chicken Pox - Past Surgical History Head Surgeries/Procedures: Reports: None HEENT Surgical History: Reports: Laser Surgery, Oral Surgery, Tonsillectomy Cardiovascular Surgical History: Reports: None Respiratory Surgical History: Reports: None GI Surgical History: Reports: Bariatric Procedure, Cholecystectomy, Colonoscopy , EGD, Esophageal Dilatation, Small Bowel Other GI Surgeries/Procedures: resectionx3. Female Surgical History: Reports: Breast Biopsy, Hysterectomy, Salpingo- Oophorectomy, Tubal Ligation Endocrine Surgical History: Reports: None Neurological Surgical History: Reports: C-Spine, Discectomy, Laminectomy, Lumbar Spine, Scoliosis, Spinal Fusion Musculoskeletal Surgical History: Reports: Arthroscopic Knee, Arthroscopic Procedure, Ganglion Cyst, Joint Replacement, Knee Replacement Other Musculoskeletal Surgeries/Procedures:: bilateral knee-total Oncologic Surgical History: Reports: Biopsy of Breast Dermatological Surgical History: Reports: None Social & Family History - Family History Family Medical History: Noncontributory HEENT: Reports: Allergic Rhinitis, Glaucoma, Impaired Vision Cardiac: Reports: Afib, NC, Stent Respiratory: Reports: Asthma, COPD : Reports: Renal Calculus OBGYN: Reports: Endometriosis, Fibroids Musculoskeletal: Reports: Arthritis, Back pain, Chronic, Neck Pain, Chronic Neurological: Reports: Migraines Hematologic: Reports: Other (See Below) Other Hematologic Family History: unknown type of thrombocytopenia Dermatologic: Reports: Eczema Oncologic: Reports: Lung - Tobacco Use Smoking Status *Q: Never Smoker - Caffeine Use Caffeine Use: Reports: Coffee, Tea Caffeine Use Comment: 1 cup per day - Recreational Drug Use Recreational Drug Use: No ED ROS GENERAL - Review of Systems Review Of Systems: See Below Constitutional: Reports: No Symptoms HEENT: Reports: No Symptoms Respiratory: Reports: No Symptoms Cardiovascular: Reports: No Symptoms GI/Abdominal: Reports: Abdominal Pain, Diarrhea (more loose than usual for her) , Nausea. Denies: Black Stool, Bloody Stool, Constipation, Distension, Hematemesis, Hematochezia, Vomiting : Reports: No Symptoms Musculoskeletal: Reports: No Symptoms Skin: Reports: No Symptoms Neurological: Reports: No Symptoms Psychiatric: Reports: No Symptoms ED EXAM, GI/ABD - Physical Exam Exam: See Below Exam Limited By: No Limitations General Appearance: Alert, WD/WN, No Apparent Distress Eyes: Bilateral: Normal Appearance Ears: Normal External Exam, Normal Canal, Hearing Grossly Normal Nose: Normal Inspection, No Blood Throat/Mouth: Normal Inspection, Normal Lips, Normal Oropharynx, Normal Voice, No Airway Compromise Head: Atraumatic, Normocephalic Neck: Normal Inspection Respiratory/Chest: No Respiratory Distress, Lungs Clear, Normal Breath Sounds, No Accessory Muscle Use Cardiovascular: Regular Rate, Rhythm, No Edema GI/Abdominal Exam: Soft, No Distention, Tender (in several areas in her abdomen. ). No: Non-Tender, Distended, Guarding, Rigid, Rebound, Hernia Back Exam: Normal Inspection. No: CVA Tenderness (R), CVA Tenderness (L) Extremities: Normal Inspection, Normal Range of Motion, Non-Tender, No Pedal Edema Neurological: Alert, Oriented, CN II-XII Intact, Normal Cognition, No Motor/ Sensory Deficits Psychiatric: Normal Affect, Normal Mood Skin Exam: Warm, Dry, Intact, Normal Color, No Rash Course - Vital Signs Last Recorded V/S: Last Vital Signs Temp 35.1 C L 03/06/20 00:53 Pulse 63 03/06/20 02:31 Resp 16 03/06/20 02:31 BP 117/56 L 03/06/20 02:31 Pulse Ox 98 03/06/20 02:31 - Orders/Labs/Meds Orders: Active Orders 24 hr Category Date Time Status Abdomen 1V Upright [CR] Stat Exams 03/06/20 01:15 Taken Lactated Ringers [Ringers, Lactated] 1,000 ml Med 03/06/20 01:15 Active IV ASDIRECTED Medication Orders Lactated Ringer's (Ringers, Lactated) 1,000 mls @ 500 mls/hr IV ASDIRECTED SALINAS Last Admin: 03/06/20 01:40 Dose: 500 mls/hr Labs: Laboratory Tests 03/06/20 03/06/20 Range/Units 01:30 01:30 WBC 4.5 (4.5-11.0) K/uL RBC 4.20 (3.30-5.50) M/uL Hgb 12.8 (12.0-15.0) g/dL Hct 39.7 (36.0-48.0) % MCV 95 (80-98) fL MCH 31 (27-31) pg MCHC 32 (32-36) % Plt Count 212 (150-400) K/uL Sodium 141 (140-148) mmol/L Potassium 3.9 (3.6-5.2) mmol/L Chloride 104 (100-108) mmol/L Carbon Dioxide 29 (21-32) mmol/L Anion Gap 7.6 (5.0-14.0) mmol/L BUN 19 H D (7-18) mg/dL Creatinine 0.7 (0.6-1.0) mg/dL Est Cr Clr Drug Dosing 78.41 mL/min Estimated GFR (MDRD) > 60 (>60) Glucose 83 (74-106) mg/dL Calcium 8.6 (8.5-10.1) mg/dL Total Bilirubin 0.4 (0.2-1.0) mg/dL AST 36 (15-37) U/L ALT 67 (12-78) U/L Alkaline Phosphatase 95 (46-116) U/L Total Protein 6.4 (6.4-8.2) g/dL Albumin 3.8 (3.4-5.0) g/dL Globulin 2.6 (2.3-3.5) g/dL Albumin/Globulin Ratio 1.5 (1.2-2.2) Lipase 146 (73-393) U/L Meds: Medications Generic Name Dose Route Start Last Admin Trade Name Freq PRN Reason Stop Dose Admin Lactated Ringer's 1,000 mls @ 500 mls/hr 03/06/20 01:15 03/06/20 01:40 Ringers, Lactated IV 500 mls/hr ASDIRECTED SALINAS Administration Discontinued Medications Generic Name Dose Route Start Last Admin Trade Name Freq PRN Reason Stop Dose Admin Hydromorphone HCl 0.25 mg 03/06/20 01:14 03/06/20 01:39 Dilaudid IVPUSH 03/06/20 01:15 Not Given ONETIME ONE Hydromorphone HCl 0.5 mg 03/06/20 01:29 03/06/20 01:40 Dilaudid IVPUSH 03/06/20 01:30 0.5 mg ONETIME ONE Administration Sodium Chloride 77 mls @ 3.5 mls/sec 03/06/20 02:00 03/06/20 02:25 Normal Saline IV 03/06/20 02:01 2.8 mls/sec ONETIME SALINAS Administration Iopamidol 122 ml 03/06/20 02:00 03/06/20 02:24 Isovue-300 (61%) IV 03/06/20 02:01 122 ml ONETIME SALINAS Administration Metoclopramide HCl 5 mg 03/06/20 01:14 03/06/20 01:40 Reglan IVPUSH 03/06/20 01:15 5 mg ONETIME ONE Administration Sodium Chloride 10 ml 03/06/20 01:49 03/06/20 02:25 Saline Flush FLUSH 03/06/20 01:50 10 ml ONETIME ONE Administration - Radiology Interpretation Free Text/Narrative:: upright abdominal [id number] gas pattern. CT abdomen/pelvis with IV contrast-IMPRESSION: No acute intra-abdominal process identified. Trace amount of ascites, stable. Minimal colonic diverticulosis. Status post cholecystectomy, gastric bypass procedure, hysterectomy, ORIF lumbar spine, and fusion of the right sacroiliac joint. CT Results Date: 03/06/20 CT Results Time: 03:02 Departure - Departure Time of Disposition: 03:10 Disposition: Home, Self-Care 01 Condition: Fair Clinical Impression: Abdominal pain Qualifiers: Abdominal location: unspecified location Qualified Code(s): R10.9 - Unspecified abdominal pain - Discharge Information *PRESCRIPTION DRUG MONITORING PROGRAM REVIEWED*: No *COPY OF PRESCRIPTION DRUG MONITORING REPORT IN PATIENT [place]: No Instructions: Abdominal Pain, Adult, [id number] Referrals: Shahla Blum PA-C [Primary Care Provider] - Forms: ED Department Discharge Additional Instructions: Acetaminophen as needed for pain relief. Use your nausea medicine as needed. Clear liquids only for the next day or so. Contact Dr. Perez regarding continuation or worsening of your symptoms. Sepsis Event Note - Evaluation Sepsis Screening Result: No Definite Risk - Focused Exam Vital Signs: Vital Signs Temp Pulse Resp BP BP Pulse Ox 03/06/20 02:31 63 16 117/56 L 98 03/06/20 00:53 35.1 C L 69 16 140/81 99 Date Exam was Performed: 03/06/20 Time Exam was Performed: 03:02 - My Orders Last 24 Hours: My Active Orders 03/06/20 01:15 Abdomen 1V Upright [CR] Stat Lactated Ringers [Ringers, Lactated] 1,000 ml IV ASDIRECTED - Assessment/Plan Last 24 Hours: My Active Orders 03/06/20 01:15 Abdomen 1V Upright [CR] Stat Lactated Ringers [Ringers, Lactated] 1,000 ml IV ASDIRECTED
[2020-03-06] MEDS ORDERED: Sodium Chloride 0.9% 10 ML Syringe FLUSH ONE (01:49)
[2020-03-06] MEDS ORDERED: Iopamidol 612 MG/ML 150 ML Bottle IV SCH (02:00)
--- NOTE | 2020-03-06 02:55 | CRLCT ---
INDICATION: Nausea and abdominal pain TECHNIQUE: CT abdomen and pelvis acquired with 122 cc Isovue-300 IV contrast. COMPARISON: November 11, 2019 FINDINGS: Lower chest: Unremarkable. Liver: Unremarkable. Spleen: Small amount of perisplenic free fluid. Pancreas: Unremarkable. Gallbladder and bile ducts: S/p cholecystectomy. Mild intrahepatic and extrahepatic biliary ductal dilatation likely due to reservoir effect. Adrenal glands: Unremarkable. Kidneys: Unremarkable. GI tract: Status post gastric bypass procedure. Minimal colonic diverticulosis. Appendix is normal. Vascular structures: Unremarkable. Lymph nodes: Unremarkable. Miscellaneous: Unremarkable. No free air or significant free fluid. Pelvic Organs: Status post hysterectomy. Bones: Status post ORIF lower lumbar spine. Three surgical screws across the right sacroiliac joint. IMPRESSION: No acute intra-abdominal process identified. Trace amount of ascites, stable. Minimal colonic diverticulosis. Status post cholecystectomy, gastric bypass procedure, hysterectomy, ORIF lumbar spine, and fusion of the right sacroiliac joint. Please note that all CT scans at this facility use dose modulation, iterative reconstruction, and/or weight-based dosing when appropriate to reduce radiation dose to as low as reasonably achievable. Dictated by Zainab Obando MD @ Mar 06 2020 2:47AM Signed by Dr. Zainab Obando @ Mar 06 2020 2:54AM
[2020-03-06 03:12] VITALS: BP 109/57; PULSE 59
--- NOTE | 2020-03-06 10:13 | CR ---
Abdomen 1V Upright CLINICAL HISTORY: Abdominal pain, previous gastric bypass FINDINGS: No free air is identified. Patient has had previous gastric bypass. There are scattered air-filled loops of small bowel with mild dilatation. No air-fluid levels are seen. Patient has had previous extensive lumbar and right SI joint surgery IMPRESSION: Gaseous distention in a nonacute pattern Previous bariatric surgery Previous lumbosacral surgery
== END 2020-03-06 03:20 | disposition home or self-care (01) ==
LOC: JP.ED 00:42
DX: R10.9 Unspecified abdominal pain (principal); E66.9 Obesity, unspecified; Z88.8 Allergy status to other drugs, medicaments and biological substances; Z88.5 Allergy status to narcotic agent; Z88.1 Allergy status to other antibiotic agents; Z91.09 Other allergy status, other than to drugs and biological substances; Z79.899 Other long term (current) drug therapy
CPT/HCPCS: 36415; 74018; 74177; 80053; 83690; 85027; 96361; 96374; 96375; 99284; J1170; J2765; J7050; J7120; Q9967

== ENCOUNTER 2020-07-30 15:48 | Emergency (ER) | payer BC ==
[2020-07-30 16:06] VITALS: BP 159/84; PULSE 62
[2020-07-30] MEDS ORDERED: Sodium Chloride 0.9% 1,000 ML IV ONE (16:14)
[2020-07-30] MEDS ORDERED: HYDROmorphone 1 MG/ML Syringe IVPUSH PRN (16:14)
[2020-07-30] MEDS ORDERED: Sodium Chloride 0.9% 10 ML Syringe FLUSH PRN (16:20)
[2020-07-30] MEDS ORDERED: Iopamidol 612 MG/ML 100 ML Bottle IV PRN (16:20)
[2020-07-30] MEDS ORDERED: Ondansetron 4 MG/2 ML SDV IVPUSH ONE ×2 (16:30→17:59)
--- NOTE | 2020-07-30 17:44 | EDM.PDOC ---
ED HPI GENERAL MEDICAL PROBLEM - General Chief Complaint: Abdominal Pain Stated Complaint: STOMACH PAINS Time Seen by Provider: 07/30/20 16:00 - History of Present Illness INITIAL COMMENTS - FREE TEXT/NARRATIVE: Patient has a history of gastric bypass and she presents emergency department generalized abdominal pain she says this is not a new pain for her. She says sometimes when she has this pain she will have a bowel obstruction but she is not sure if she has that today. Her surgeon is aware that she is here. She denies any fevers or blood in her stool. She has not any vomiting. Middle Abdomen Pain Score (Numeric/FACES): 10 - Related Data Allergies Allergy/AdvReac Type Severity Reaction Status Date / Time meropenem [From Merrem] Allergy Intermediate Redness Verified 07/30/20 16:03 hydromorphone [From Dilaudid] Allergy Mild Itching Verified 07/30/20 16:03 chlorhexidine Allergy Rash Verified 07/30/20 16:03 hydrocodone Allergy Itching Verified 07/30/20 16:03 water for injection,sterile Allergy Cannot Verified 07/30/20 16:03 [From Reclast] Remember zoledronic acid Allergy Cannot Verified 07/30/20 16:03 [From Reclast] Remember amoxicillin [Amoxicillin] AdvReac Vomiting Verified 07/30/20 16:03 benzoin AdvReac Blisters Verified 07/30/20 16:03 ciprofloxacin AdvReac Nausea and Verified 07/30/20 16:03 Vomiting clavulanic acid AdvReac Nausea and Verified 07/30/20 16:03 [From Augmentin] Vomiting doxycycline AdvReac Nausea and Verified 07/30/20 16:03 Vomiting mannitol [From Reclast] AdvReac Nausea and Verified 07/30/20 16:03 Vomiting pantoprazole AdvReac Diarrhea Verified 07/30/20 16:03 adhesive tape Allergy Rash Uncoded 07/30/20 16:03 Home Meds: Home Meds Loratadine [Claritin] 10 mg PO DAILY 09/24/14 [History] estradioL [Estrace] 0.5 mg PO DAILY 09/24/14 [History] Cholecalciferol (Vitamin D3) [Vitamin D] 5,000 units PO DAILY 09/25/14 [History] Folic Acid 1 mg PO DAILY 12/27/16 [History] Biotin 10,000 mg PO DAILY 12/29/16 [History] Vitamin B Complex [B Complex] 1 tab PO BEDTIME 06/28/17 [History] Multivitamin [Flintstones] 2 tab PO DAILY 06/30/17 [History] Calcium Carb/Magnesium Oxid/D3 [Calcium Magnesium + D] 1 each PO DAILY 03/28/18 [History] Hyoscyamine [Levsin] 0.125 mg PO Q4HR PRN 12/21/18 [History] Ondansetron [Zofran ODT] 4 mg PO Q4H PRN 12/21/18 [History] Cyanocobalamin (Vitamin B-12) [Vitamin B-12] 2,500 mcg SL DAILY 12/24/18 [History] Acetaminophen [Tylenol] 650 mg PO Q6H tablet 12/26/18 [Rx] traZODone HCl [Trazodone HCl] 50 mg PO BEDTIME 08/08/19 [History] tiZANidine [Zanaflex] 8 mg PO BEDTIME 08/26/19 [History] Past Medical History HEENT History: Reports: Allergic Rhinitis, Glaucoma, Impaired Vision Other HEENT History: wears glasses Cardiovascular History: Reports: Arrhythmia Other Cardiovascular History: PVCs Respiratory History: Reports: Bronchitis, Recurrent Gastrointestinal History: Reports: Celiac Disease, Cholelithiasis, Gastritis, GERD, Hiatal Hernia Other Gastrointestinal History: celiac disease Genitourinary History: Reports: None 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: Endometriosis, Fibroids, Musculoskeletal History: Reports: Arthritis, Back Pain, Chronic, Fracture, Neck Pain, Chronic, Osteoarthritis, Osteoporosis Other Musculoskeletal History: fx right foot,ankle and wrist fx left toe, fusions lower back and neck Neurological History: Reports: None Psychiatric History: Reports: None Endocrine/Metabolic History: Reports: Obesity/BMI 30+, Vitamin D Deficiency Hematologic History: Reports: Anemia, B12 Deficiency, Folic Acid, Iron Deficiency Immunologic History: Reports: None Oncologic (Cancer) History: Reports: None Dermatologic History: Reports: Other (See Below) Other Dermatologic History: "sensitive skin" - Infectious Disease History Infectious Disease History: Reports: Chicken Pox - Past Surgical History Head Surgeries/Procedures: Reports: None HEENT Surgical History: Reports: Laser Surgery, Oral Surgery, Tonsillectomy Cardiovascular Surgical History: Reports: None Respiratory Surgical History: Reports: None GI Surgical History: Reports: Bariatric Procedure, Cholecystectomy, Colonoscopy, EGD, Esophageal Dilatation, Small Bowel Other GI Surgeries/Procedures: resectionx3. Female Surgical History: Reports: Breast Biopsy, Hysterectomy, Salpingo- Oophorectomy, Tubal Ligation Endocrine Surgical History: Reports: None Neurological Surgical History: Reports: C-Spine, Discectomy, Laminectomy, Lumbar Spine, Scoliosis, Spinal Fusion Musculoskeletal Surgical History: Reports: Arthroscopic Knee, Arthroscopic Procedure, Ganglion Cyst, Joint Replacement, Knee Replacement Other Musculoskeletal Surgeries/Procedures:: bilateral knee-total Oncologic Surgical History: Reports: Biopsy of Breast Dermatological Surgical History: Reports: None Social & Family History - Family History Family Medical History: Noncontributory HEENT: Reports: Allergic Rhinitis, Glaucoma, Impaired Vision Cardiac: Reports: Afib, [place], Stent Respiratory: Reports: Asthma, COPD : Reports: Renal Calculus OBGYN: Reports: Endometriosis, Fibroids Musculoskeletal: Reports: Arthritis, Back pain, Chronic, Neck Pain, Chronic Neurological: Reports: Migraines Hematologic: Reports: Other (See Below) Other Hematologic Family History: unknown type of thrombocytopenia Dermatologic: Reports: Eczema Oncologic: Reports: Lung - Tobacco Use Smoking Status *Q: Never Smoker Second Hand Smoke Exposure: No - Caffeine Use Caffeine Use: Reports: Coffee, Tea Caffeine Use Comment: 1 cup per day - Recreational Drug Use Recreational Drug Use: No ED ROS GENERAL - Review of Systems Review Of Systems: Comprehensive ROS is negative, except as noted in HPI. ED EXAM, GENERAL - Physical Exam Exam: See Below General Appearance: Alert Head: Atraumatic Respiratory/Chest: No Respiratory Distress Cardiovascular: Normal Peripheral Pulses GI/Abdominal: Other (Generalized epigastric pain with palpation, no rebound tenderness, bowel sounds are present) Back Exam: Normal Inspection Extremities: Normal Inspection Neurological: Alert, Oriented Psychiatric: Normal Affect Skin Exam: Warm, Dry Course - Vital Signs Text/Narrative:: I offered the patient admission to the hospital for pain control and she wants to try to go home and push clear fluids and follow-up with her surgeon tomorrow patient is aware she has a low-grade small bowel obstruction Patient received fluids and pain medicines as noted in the chart, labs look okay and CT shows mild obstruction, patient is feeling better and since she is not in pain she feels as though she can go home push fluids and follow-up with her surgeon tomorrow Last Recorded V/S: Last Vital Signs Temp 97.1 F 07/30/20 16:10 Pulse 62 07/30/20 16:10 Resp 16 07/30/20 16:10 BP 159/84 H 07/30/20 16:10 Pulse Ox 100 07/30/20 16:10 - Orders/Labs/Meds Orders: Active Orders 24 hr Category Date Time Status HYDROmorphone [Dilaudid] Med 07/30/20 16:14 Active 1 mg IVPUSH Q2H PRN Sodium Chloride 0.9% [Saline Flush] Med 07/30/20 16:20 Active 10 ml FLUSH ONETIME PRN Medication Orders Hydromorphone HCl (Dilaudid) 1 mg IVPUSH Q2H PRN PRN Reason: Abdominal Pain Last Admin: 07/30/20 16:30 Dose: 1 mg Documented by: EUGENIA Sodium Chloride (Saline Flush) 10 ml FLUSH ONETIME PRN PRN Reason: PER RADIOLOGY PROTOCOL Last Admin: 07/30/20 17:05 Dose: 10 ml Documented by: CATALINO Labs: Laboratory Tests 07/30/20 07/30/20 07/30/20 Range/Units 16:20 16:20 16:20 WBC 5.2 (4.5-11.0) K/uL RBC 4.62 (3.30-5.50) M/uL Hgb 14.0 (12.0-15.0) g/dL Hct 43.0 (36.0-48.0) % MCV 93 (80-98) fL MCH 30 (27-31) pg MCHC 33 (32-36) % Plt Count 223 (150-400) K/uL Neut % (Auto) 66 (36-66) % Lymph % (Auto) 27 (24-44) % Towns % (Auto) 5 (2-6) % Eos % (Auto) 1 L (2-4) % Baso % (Auto) 1 (0-1) % Sodium 142 (140-148) mmol/L Potassium 4.6 (3.6-5.2) mmol/L Chloride 103 (100-108) mmol/L Carbon Dioxide 29 (21-32) mmol/L Anion Gap 10.0 (5.0-14.0) mmol/L BUN 16 (7-18) mg/dL Creatinine 0.7 (0.6-1.0) mg/dL Est Cr Clr Drug Dosing 78.41 mL/min Estimated GFR (MDRD) > 60 (>60) Glucose 110 H (74-106) mg/dL Lactic Acid 0.8 (0.4-2.0) mmol/L Calcium 9.2 (8.5-10.1) mg/dL Total Bilirubin 0.4 (0.2-1.0) mg/dL AST 42 H (15-37) U/L ALT 46 (12-78) U/L Alkaline Phosphatase 83 (46-116) U/L Total Protein 7.0 (6.4-8.2) g/dL Albumin 4.1 (3.4-5.0) g/dL Globulin 2.9 (2.3-3.5) g/dL Albumin/Globulin Ratio 1.4 (1.2-2.2) Lipase 146 (73-393) U/L Meds: Medications Generic Name Dose Route Start Last Admin Trade Name Fresaba PRN Reason Stop Dose Admin Hydromorphone HCl 1 mg 07/30/20 16:14 07/30/20 16:30 Dilaudid IVPUSH 1 mg Q2H PRN Administration Abdominal Pain Sodium Chloride 10 ml 07/30/20 16:20 07/30/20 17:05 Saline Flush FLUSH 10 ml ONETIME PRN Administration PER RADIOLOGY PROTOCOL Discontinued Medications Generic Name Dose Route Start Last Admin Trade Name Fresaba PRN Reason Stop Dose Admin Hydromorphone HCl 0.5 mg 07/30/20 17:51 07/30/20 17:56 Dilaudid IVPUSH 07/30/20 17:52 0.5 mg ONETIME ONE Administration Sodium Chloride 1,000 mls @ 1,000 mls/hr 07/30/20 16:14 07/30/20 16:28 Normal Saline IV 07/30/20 17:13 1,000 mls/hr .BOLUS ONE Administration Iopamidol 100 ml 07/30/20 16:20 07/30/20 17:05 Isovue-300 (61%) IV 100 ml . DIRECTED PRN Administration RADIOLOGY EXAM Ondansetron HCl 4 mg 07/30/20 16:30 07/30/20 16:36 Zofran IVPUSH 07/30/20 16:31 4 mg ONETIME ONE Administration Ondansetron HCl 4 mg 07/30/20 17:59 07/30/20 18:08 Zofran IVPUSH 07/30/20 18:00 4 mg ONETIME ONE Administration Departure - Departure Time of Disposition: 18:13 Disposition: Home, Self-Care 01 Clinical Impression: Small bowel obstruction Abdominal pain Qualifiers: Abdominal location: unspecified location Qualified Code(s): R10.9 - Unspecified abdominal pain - Discharge Information Instructions: Abdominal Pain, Adult, [id number], Bowel Obstruction Referrals: Shahla Blum PA-C [Primary Care Provider] - Forms: ED Department Discharge Sepsis Event Note (ED) - Evaluation Sepsis Screening Result: No Definite Risk - Focused Exam Vital Signs: Vital Signs Temp Pulse Resp BP Pulse Ox 07/30/20 16:10 97.1 F 62 16 159/84 H 100 07/30/20 16:04 97.1 F 62 16 159/84 H 100 - My Orders Last 24 Hours: My Active Orders 07/30/20 16:14 HYDROmorphone [Dilaudid] 1 mg IVPUSH Q2H PRN 07/30/20 16:20 Sodium Chloride 0.9% [Saline Flush] 10 ml FLUSH ONETIME PRN - Assessment/Plan Last 24 Hours: My Active Orders 07/30/20 16:14 HYDROmorphone [Dilaudid] 1 mg IVPUSH Q2H PRN 07/30/20 16:20 Sodium Chloride 0.9% [Saline Flush] 10 ml FLUSH ONETIME PRN
[2020-07-30] MEDS ORDERED: HYDROmorphone 0.5 MG/0.5 ML Syringe IVPUSH ONE (17:51)
--- NOTE | 2020-07-30 18:03 | CRLCT ---
Indication: Abdominal pain, history of Marjorie-en-Y and small-bowel obstruction Technique: Contrast enhanced axial CT imaging through the abdomen and pelvis. 100 mL Isovue-300 contrast agent was administered intravenously. Sagittal and coronal reconstructions are provided. Comparison: CT abdomen and pelvis with contrast 03/06/2020 Findings: There are several mildly distended small bowel loops in the anterior lower abdomen, measuring up to 3.7 cm. A transition point is not identified. Surgical anastomosis is noted. There is no bowel thickening or pneumatosis. The colon is grossly unremarkable. The appendix is noninflamed. Marjorie-en-Y gastric bypass changes are noted. There is no significant abnormality of the liver, spleen, pancreas, adrenal glands, and kidneys. Cholecystectomy clips are present. There is normal caliber of the abdominal aorta. There is no abdominal lymphadenopathy. Changes of prior laminectomy and posterior fusion with transpedicular screw fixation are noted at the L3 through L5. Impression: Mildly distended small bowel loops in the anterior lower abdomen, without definite transition point. Findings suggest low-grade small bowel obstruction. Correlate clinically. Please note that all CT scans at this facility use dose modulation, iterative reconstruction, and/or weight-based dosing when appropriate to reduce radiation dose to as low as reasonably achievable. Dictated by Debora Martínez MD @ Jul 30 2020 5:47PM Signed by Dr. Debora Martínez @ Jul 30 2020 6:01PM
== END 2020-07-30 18:21 | disposition home or self-care (01) ==
LOC: JP.ED 15:48
DX: K56.609 Unspecified intestinal obstruction, unspecified as to partial versus complete obstruction (principal); E66.9 Obesity, unspecified; Z68.32 Body mass index [BMI] 32.0-32.9, adult; Z88.5 Allergy status to narcotic agent; Z91.048 Other nonmedicinal substance allergy status; Z88.8 Allergy status to other drugs, medicaments and biological substances; Z88.1 Allergy status to other antibiotic agents; Z79.899 Other long term (current) drug therapy
CPT/HCPCS: 36415; 74177; 80053; 83605; 83690; 85025; 96361; 96374; 96375; 96376; 99284; J1170; J2405; J7030; Q9967

== ENCOUNTER 2021-02-23 17:05 | Inpatient (IN) | payer BC ==
[2021-02-23] MEDS ORDERED: Lactated Ringers 1,000 ML IV ONE (17:14)
[2021-02-23] MEDS ORDERED: Ondansetron 4 MG/2 ML SDV IVPUSH ONE (17:14)
[2021-02-23] MEDS ORDERED: Sodium Chloride 0.9% 10 ML Syringe FLUSH PRN (17:14)
[2021-02-23] MEDS ORDERED: fentaNYL 100 MCG/2 ML SDV IVPUSH ONE ×2 (17:26→17:39)
[2021-02-23] MEDS ORDERED: LORazepam 2 MG/ML SDV IVPUSH ONE (17:39)
--- NOTE | 2021-02-23 17:44 | EDM.PDOC ---
ED HPI GENERAL MEDICAL PROBLEM - General Chief Complaint: Abdominal Pain Stated Complaint: STOMACH PAIN Time Seen by Provider: 02/23/21 17:40 Source of Information: Reports: Patient, Old Records, RN Notes Reviewed History Limitations: Reports: No Limitations - History of Present Illness INITIAL COMMENTS - FREE TEXT/NARRATIVE: 55-year-old female presents emergency department a complaint of abdominal pain, she has a known history of gastric bypass, she is having abdominal pain on and off for the last month or so it has progressively gotten worse did contact the gastric bypass team today CT scan with oral contrast was she was able to complete that test however she states after the CT scan at 1 this afternoon her pain increased significantly and she reported to the emergency department. She is having significant dry heaves rates her pain 10 out of 10 no shortness of breath no chest pain no fevers - Related Data Allergies Allergy/AdvReac Type Severity Reaction Status Date / Time meropenem [From Merrem] Allergy Intermediate Redness Verified 02/23/21 17:25 hydromorphone [From Dilaudid] Allergy Mild Itching Verified 02/23/21 17:25 chlorhexidine Allergy Rash Verified 02/23/21 17:25 hydrocodone Allergy Itching Verified 02/23/21 17:25 water for injection,sterile Allergy Cannot Verified 02/23/21 17:25 [From Reclast] Remember zoledronic acid Allergy Cannot Verified 02/23/21 17:25 [From Reclast] Remember amoxicillin [Amoxicillin] AdvReac Vomiting Verified 02/23/21 17:25 benzoin AdvReac Blisters Verified 02/23/21 17:25 ciprofloxacin AdvReac Nausea and Verified 02/23/21 17:25 Vomiting clavulanic acid AdvReac Nausea and Verified 02/23/21 17:25 [From Augmentin] Vomiting doxycycline AdvReac Nausea and Verified 02/23/21 17:25 Vomiting mannitol [From Reclast] AdvReac Nausea and Verified 02/23/21 17:25 Vomiting pantoprazole AdvReac Diarrhea Verified 02/23/21 17:25 adhesive tape Allergy Rash Uncoded 02/23/21 17:25 Home Meds: Home Meds Loratadine [Claritin] 10 mg PO DAILY 09/24/14 [History] estradioL [Estrace] 0.5 mg PO DAILY 09/24/14 [History] Cholecalciferol (Vitamin D3) [Vitamin D] 5,000 units PO DAILY 09/25/14 [History] Folic Acid 1 mg PO DAILY 12/27/16 [History] Biotin 10,000 mg PO DAILY 12/29/16 [History] Vitamin B Complex [B Complex] 1 tab PO BEDTIME 06/28/17 [History] Multivitamin [Flintstones] 2 tab PO DAILY 06/30/17 [History] Calcium Carb/Magnesium Oxid/D3 [Calcium Magnesium + D] 1 each PO DAILY 03/28/18 [History] Hyoscyamine [Levsin] 0.125 mg PO Q4HR PRN 12/21/18 [History] Ondansetron [Zofran ODT] 4 mg PO Q4H PRN 12/21/18 [History] Cyanocobalamin (Vitamin B-12) [Vitamin B-12] 2,500 mcg SL DAILY 12/24/18 [History] Acetaminophen [Tylenol] 650 mg PO Q6H tablet 12/26/18 [Rx] traZODone HCl [Trazodone HCl] 50 mg PO BEDTIME 08/08/19 [History] tiZANidine [Zanaflex] 8 mg PO BEDTIME 08/26/19 [History] Past Medical History HEENT History: Reports: Allergic Rhinitis, Glaucoma, Impaired Vision Other HEENT History: wears glasses Cardiovascular History: Reports: Arrhythmia Other Cardiovascular History: PVCs Respiratory History: Reports: Bronchitis, Recurrent Gastrointestinal History: Reports: Celiac Disease, Cholelithiasis, Gastritis, GERD, Hiatal Hernia Other Gastrointestinal History: celiac disease Genitourinary History: Reports: None 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: Endometriosis, Fibroids, Musculoskeletal History: Reports: Arthritis, Back Pain, Chronic, Fracture, Neck Pain, Chronic, Osteoarthritis, Osteoporosis Other Musculoskeletal History: fx right foot,ankle and wrist fx left toe, fusions lower back and neck Neurological History: Reports: None Psychiatric History: Reports: None Endocrine/Metabolic History: Reports: Obesity/BMI 30+, Vitamin D Deficiency Hematologic History: Reports: Anemia, B12 Deficiency, Folic Acid, Iron Deficiency Immunologic History: Reports: None Oncologic (Cancer) History: Reports: None Dermatologic History: Reports: Other (See Below) Other Dermatologic History: "sensitive skin" - Infectious Disease History Infectious Disease History: Reports: Chicken Pox - Past Surgical History Head Surgeries/Procedures: Reports: None HEENT Surgical History: Reports: Laser Surgery, Oral Surgery, Tonsillectomy Cardiovascular Surgical History: Reports: None Respiratory Surgical History: Reports: None GI Surgical History: Reports: Bariatric Procedure, Cholecystectomy, Colonoscopy, EGD, Esophageal Dilatation, Small Bowel Other GI Surgeries/Procedures: resectionx3. Female Surgical History: Reports: Breast Biopsy, Hysterectomy, Salpingo-Oop horectomy, Tubal Ligation Endocrine Surgical History: Reports: None Neurological Surgical History: Reports: C-Spine, Discectomy, Laminectomy, Lumbar Spine, Scoliosis, Spinal Fusion Musculoskeletal Surgical History: Reports: Arthroscopic Knee, Arthroscopic Procedure, Ganglion Cyst, Joint Replacement, Knee Replacement Other Musculoskeletal Surgeries/Procedures:: bilateral knee-total Oncologic Surgical History: Reports: Biopsy of Breast Dermatological Surgical History: Reports: None Social & Family History - Family History Family Medical History: No Pertinent Family History HEENT: Reports: Allergic Rhinitis, Glaucoma, Impaired Vision Cardiac: Reports: Afib, [place], Stent Respiratory: Reports: Asthma, COPD : Reports: Renal Calculus OBGYN: Reports: Endometriosis, Fibroids Musculoskeletal: Reports: Arthritis, Back pain, Chronic, Neck Pain, Chronic Neurological: Reports: Migraines Hematologic: Reports: Other (See Below) Other Hematologic Family History: unknown type of thrombocytopenia Dermatologic: Reports: Eczema Oncologic: Reports: Lung - Tobacco Use Tobacco Use Status *Q: Never Tobacco User - Caffeine Use Caffeine Use: Reports: Coffee, Tea Caffeine Use Comment: 1 cup per day ED ROS GENERAL - Review of Systems Review Of Systems: See Below Constitutional: Denies: Fever, Chills HEENT: Reports: No Symptoms Respiratory: Reports: No Symptoms Cardiovascular: Reports: No Symptoms GI/Abdominal: Reports: Flatus, Nausea, Vomiting : Reports: No Symptoms ED EXAM, GI/ABD - Physical Exam Exam: See Below Exam Limited By: No Limitations General Appearance: Alert, Moderate Distress Respiratory/Chest: No Respiratory Distress GI/Abdominal Exam: Normal Bowel Sounds, Soft, No Distention, Tender Course - Vital Signs Last Recorded V/S: Last Vital Signs Temp 97.5 F 02/23/21 17:36 Pulse 107 H 02/23/21 17:36 Resp 16 02/23/21 17:36 BP 129/88 02/23/21 17:36 Pulse Ox 96 02/23/21 17:36 - Orders/Labs/Meds Orders: Active Orders 24 hr Category Date Time Status Peripheral IV Care [RC] . DIRECTED Care 02/23/21 17:14 Active AMYLASE [CHEM] Stat Lab 02/23/21 17:37 Ordered CBC WITH AUTO DIFF [HEME] Urgent Lab 02/23/21 17:31 Ordered COMPREHENSIVE METABOLIC PN,CMP [CHEM] Urgent Lab 02/23/21 17:31 Ordered LACTIC ACID [CHEM] Urgent Lab 02/23/21 17:31 Ordered LIPASE [CHEM] Urgent Lab 02/23/21 17:31 Ordered TROPONIN I [CHEM] Urgent Lab 02/23/21 17:31 Ordered UA W/MICROSCOPIC [URIN] Urgent Lab 02/23/21 17:31 Ordered Lactated Ringers [Ringers, Lactated] 1,000 ml Med 02/23/21 17:14 Active IV BOLUS Sodium Chloride 0.9% [Saline Flush] Med 02/23/21 17:14 Active 10 ml FLUSH ASDIRECTED PRN Peripheral IV Insertion Adult [OM.PC] Urgent Oth 02/23/21 17:14 Ordered Medication Orders Lactated Ringer's (Ringers, Lactated) 1,000 mls @ 999 mls/hr IV BOLUS ONE Stop: 02/23/21 18:14 Last Admin: 02/23/21 17:32 Dose: 999 mls/hr Documented by: ELENA Sodium Chloride (Sodium Chloride 0.9% 10 Ml Syringe) 10 ml FLUSH ASDIRECTED PRN PRN Reason: Keep Vein Open Meds: Medications Generic Name Dose Route Start Last Admin Trade Name Freq PRN Reason Stop Dose Admin Lactated Ringer's 1,000 mls @ 999 mls/hr 02/23/21 17:14 02/23/21 17:32 Ringers, Lactated IV 02/23/21 18:14 999 mls/hr BOLUS ONE Administration Sodium Chloride 10 ml 02/23/21 17:14 Sodium Chloride 0.9% 10 Ml Syringe FLUSH ASDIRECTED PRN Keep Vein Open Discontinued Medications Generic Name Dose Route Start Last Admin Trade Name Freq PRN Reason Stop Dose Admin Fentanyl 50 mcg 02/23/21 17:26 02/23/21 17:32 Fentanyl 100 Mcg/2 Ml Sdv IVPUSH 02/23/21 17:27 50 mcg ONETIME ONE Administration Fentanyl 100 mcg 02/23/21 17:39 Fentanyl 100 Mcg/2 Ml Sdv IVPUSH 02/23/21 17:40 ONETIME ONE Lorazepam 1 mg 02/23/21 17:39 Lorazepam 2 Mg/Ml Sdv IVPUSH 02/23/21 17:40 ONETIME ONE Ondansetron HCl 4 mg 02/23/21 17:14 02/23/21 17:25 Ondansetron 4 Mg/2 Ml Sdv IVPUSH 02/23/21 17:15 4 mg ONETIME ONE Administration Departure - Departure Time of Disposition: 17:43 Disposition: Admitted As Inpatient 65 Condition: Fair Clinical Impression: Abdominal pain Qualifiers: Abdominal location: unspecified location Qualified Code(s): R10.9 - Unspecified abdominal pain - Discharge Information Referrals: Shahla Blum PA-C [Primary Care Provider] - Sepsis Event Note (ED) - Evaluation Sepsis Screening Result: No Definite Risk - Focused Exam Vital Signs: Vital Signs Temp Pulse Resp BP Pulse Ox 02/23/21 17:36 97.5 F 107 H 16 129/88 96 02/23/21 17:15 97.5 F 107 H 16 129/88 96 - My Orders Last 24 Hours: My Active Orders 02/23/21 17:14 Peripheral IV Care [RC] . DIRECTED Lactated Ringers [Ringers, Lactated] 1,000 ml IV BOLUS Sodium Chloride 0.9% [Saline Flush] 10 ml FLUSH ASDIRECTED PRN Peripheral IV Insertion Adult [OM.PC] Urgent 02/23/21 17:31 CBC WITH AUTO DIFF [HEME] Urgent COMPREHENSIVE METABOLIC PN,CMP [CHEM] Urgent LACTIC ACID [CHEM] Urgent LIPASE [CHEM] Urgent TROPONIN I [CHEM] Urgent UA W/MICROSCOPIC [URIN] Urgent 02/23/21 17:37 AMYLASE [CHEM] Stat - Assessment/Plan Last 24 Hours: My Active Orders 02/23/21 17:14 Peripheral IV Care [RC] . DIRECTED Lactated Ringers [Ringers, Lactated] 1,000 ml IV BOLUS Sodium Chloride 0.9% [Saline Flush] 10 ml FLUSH ASDIRECTED PRN Peripheral IV Insertion Adult [OM.PC] Urgent 02/23/21 17:31 CBC WITH AUTO DIFF [HEME] Urgent COMPREHENSIVE METABOLIC PN,CMP [CHEM] Urgent LACTIC ACID [CHEM] Urgent LIPASE [CHEM] Urgent TROPONIN I [CHEM] Urgent UA W/MICROSCOPIC [URIN] Urgent 02/23/21 17:37 AMYLASE [CHEM] Stat Plan: Assessment Acuity = acute Site and laterality = abdominal pain complicated patient with history of gastric bypass Etiology = unknown Manifestations = none Location of injury = Home Lab values = CT scan shows ileus with gaseous distention of the small bowel no findings consistent with acute surgical intervention at this time. Lab work is pending Plan Call discussed case with Dr. Perez recommended admission blood work which I will contact him when the results become available. 1740 time This note was dictated using [employer] voice recognition software please call with any questions on syntax or grammar.
[2021-02-23] MEDS ORDERED: Lactated Ringers 1,000 ML IV SCH (17:45)
[2021-02-23] MEDS ORDERED: diphenhydrAMINE 50 MG/ML SDV IVPUSH PRN (17:46)
[2021-02-23] MEDS ORDERED: Naloxone 0.4 MG/ML SDV IVPUSH PRN ×2 (17:46→19:29)
[2021-02-23] MEDS ORDERED: Ondansetron 4 MG/2 ML SDV IVPUSH PRN ×2 (17:46→19:29)
[2021-02-23] MEDS ORDERED: diphenhydrAMINE 25 MG Cap PO PRN (17:46)
[2021-02-23] MEDS ORDERED: fentaNYL/Normal Saline 600 MCG/30 ML PCA Vial IV SCH (18:00)
[2021-02-23] MEDS ORDERED: fentaNYL 100 MCG/2 ML SDV IVPUSH PRN (18:58)
[2021-02-23] MEDS: HYDROmorphone/Normal Saline 15 MG/30 ML PCA IV SCH (19:52)
[2021-02-23] MEDS: diphenhydrAMINE 50 MG/ML SDV IVPUSH PRN (19:59)
[2021-02-23] MEDS ORDERED: tiZANidine 4 MG Tab PO SCH (21:15)
[2021-02-23] MEDS: Ondansetron 4 MG/2 ML SDV IVPUSH PRN (21:20)
[2021-02-23] MEDS ORDERED: traZODone 50 MG Tab PO SCH (21:30)
[2021-02-24] MEDS: diphenhydrAMINE 50 MG/ML SDV IVPUSH PRN ×2 (00:31→04:46)
[2021-02-24] MEDS: Ondansetron 4 MG/2 ML SDV IVPUSH PRN ×2 (01:33→04:46)
[2021-02-24] MEDS ORDERED: Lactated Ringers 1,000 ML IV ONE (03:35)
[2021-02-24] MEDS ORDERED: Neostigmine Methylsulfate 1 MG/ML 5 ML Syringe ONE (05:23)
[2021-02-24] MEDS ORDERED: Glycopyrrolate 0.2 MG/ML 5 ML MDV ONE (05:23)
[2021-02-24] MEDS ORDERED: Rocuronium 50 MG/5 ML Vial ONE (05:23)
[2021-02-24] MEDS ORDERED: Dexamethasone 4 MG/ML SDV ONE (05:23)
[2021-02-24] MEDS ORDERED: fentaNYL 250 MCG/5 ML SDV ONE (05:23)
[2021-02-24] MEDS ORDERED: Ondansetron 4 MG/2 ML SDV ONE (05:23)
[2021-02-24] MEDS ORDERED: Succinylcholine 200 MG/10 ML MDV ONE (05:23)
[2021-02-24] MEDS ORDERED: Propofol 200 MG/20 ML SDV ONE (05:23)
[2021-02-24] MEDS: Meropenem 500 MG SDV ONE ×2 (06:36→06:50)
[2021-02-24] MEDS ORDERED: Dexamethasone 4 MG/ML SDV TOP ONE (07:30)
[2021-02-24] MEDS ORDERED: EPINEPHrine 1 MG/ML SDV IV ONE (07:30)
[2021-02-24] MEDS ORDERED: Ropivacaine 0.5% 5 MG/ML 30 ML SDV INFILT ONE (07:30)
--- NOTE | 2021-02-24 09:08 | CR ---
Abdomen 2V AP Flat Upright CLINICAL HISTORY: Small bowel obstruction FINDINGS: No free air is identified. There is gaseous distention of small bowel loops. Contrast from previous CT scan is in the colon. Patient has had previous lumbar and right sacroiliac surgery IMPRESSION: Persistent small bowel distention. This may represent ileus or partial SBO. Oral contrast given for CT scan yesterday is passed through to the descending colon.
[2021-02-24] MEDS ORDERED: Cyclobenzaprine 10 MG Tab PO PRN (09:45)
[2021-02-24] MEDS ORDERED: Albuterol/Ipratropium 3.0-0.5 MG/3 ML Neb Soln INH PRN (09:48)
[2021-02-24] MEDS ORDERED: diphenhydrAMINE 50 MG/ML SDV IVPUSH PRN (10:00)
[2021-02-24] MEDS ORDERED: Labetalol 20 MG/4 ML Syringe IVPUSH PRN (10:00)
[2021-02-24] MEDS ORDERED: hydrOXYzine HCL 100 MG/2 ML SDV IM PRN (10:00)
[2021-02-24] MEDS ORDERED: Ondansetron 4 MG/2 ML SDV IVPUSH PRN (10:00)
[2021-02-24] MEDS ORDERED: Acetaminophen 500 MG Tab PO PRN (10:00)
[2021-02-24] MEDS ORDERED: Metoclopramide 10 MG/2 ML SDV IVPUSH PRN (10:00)
[2021-02-24] MEDS: HYDROmorphone/Normal Saline 15 MG/30 ML PCA IV SCH (10:30)
[2021-02-24] MEDS: Dextrose 5%-Lactated Ringers 1,000 ML IV SCH ×3 (10:32→21:27)
[2021-02-24] MEDS: Pantoprazole 40 MG Vial IVPUSH SCH ×2 (10:36→10:39)
[2021-02-24] MEDS: Acetaminophen 500 MG Tab PO SCH ×2 (12:55→19:59)
[2021-02-24] MEDS: Meropenem 500 MG in Sodium Chloride 0.9% 50 ML IV SCH ×2 (12:55→17:25)
[2021-02-24] MEDS ORDERED: MVI, Adult with Vitamin K 10 ML, Thiamine 200 MG, Zinc/Copper/Manganese/Selenium 1 ML i... IV SCH ×4 (16:00)
[2021-02-24] MEDS: traZODone 50 MG Tab PO SCH (20:51)
[2021-02-24] MEDS: tiZANidine 4 MG Tab PO SCH (20:51)
[2021-02-25] MEDS: Meropenem 500 MG in Sodium Chloride 0.9% 50 ML IV SCH ×4 (00:33→18:03)
[2021-02-25] MEDS: Dextrose 5%-Lactated Ringers 1,000 ML IV SCH ×2 (02:48→08:26)
[2021-02-25] MEDS: Acetaminophen 500 MG Tab PO SCH ×3 (04:24→20:22)
[2021-02-25] MEDS: Magnesium Sulfate/Water 2 GM/50 ML BAG IV SCH ×3 (10:00→22:54)
[2021-02-25] MEDS: Loratadine 10 MG Tab PO SCH (10:02)
[2021-02-25] MEDS: Docusate Sodium 100 MG Cap PO SCH ×2 (10:12→20:22)
[2021-02-25] MEDS: Bisacodyl 5 MG Tab PO SCH ×2 (10:14→20:22)
[2021-02-25] MEDS: Estradiol 0.5 MG Tab PO SCH (10:14)
[2021-02-25] MEDS: HYDROmorphone/Normal Saline 15 MG/30 ML PCA IV SCH (10:18)
[2021-02-25] MEDS: SCOPOLAMINE PATCH CHECK TOP SCH (10:23)
--- NOTE | 2021-02-25 12:54 | PN ---
DATE OF SERVICE: 02/25/2021 SUBJECTIVE: Chelsea is postop day 1. States her pain is controlled. Vital signs have been stable. She has been up ambulating. She is alert and orientated. REVIEW OF SYSTEMS: Remainder of review of systems negative for any pertinent positives and negatives. OBJECTIVE: GENERAL: Chelsea is a 55-year-old female. VITAL SIGNS: TPR is 97.8, 71, 18, blood pressure 114/54. HEENT: Negative. NECK: Supple. HEART: Regular rate and rhythm. LUNGS: Clear. ABDOMEN: Dressings dry and intact. PREMA drain is intact and has drained 550 mL. Oral intake was 1020. Urine output via Arechiga catheter was 3055. ASSESSMENT: 1. Exploratory laparotomy with lysis of adhesions: a. Reduction of small bowel volvulus. b. Small bowel stricturoplasty. c. Enterotomy for tube decompression of the small bowel. d. Placement of Interceed mesh. POSTOPERATIVE DIAGNOSIS: 1. Partial small bowel obstruction secondary to: a. Small bowel volvulus. b. Focal small bowel stricture. c. Marked distention of the small bowel. Date of procedure 02/24/2021. Surgeon: Eliazar Perez MD. PLAN: 1. Discontinue media monitor. 2. May shower. 3. Discontinue Arechiga. 4. Step-2 gastric bypass diet. 5. Dulcolax 10 mg p.o. b.i.d. 6. Decrease IV to 100 mL per hour. 7. Colace 100 mg p.o. b.i.d. 8. Estradiol 0.5 mg p.o. daily. 9. Claritin 10 mg p.o. daily. 10.Magnesium sulfate 2 g IV q.6 hours x72 hours. 11.Zofran 4 mg sublingual q.4 hours p.r.n. nausea. 12.Tizanidine 8 mg p.o. at bedtime. 13.Trazodone 50 mg p.o. at bedtime. 14.Continue ambulation and use of incentive spirometer. 15.Check upper GI with protocol use for primary Marjorie-en-Y gastric bypass procedure, to check in a.m., 02/26/2021 at 0400. 16.We will evaluate p.r.n. or in a.m. Clementina Anna PA-C /[id number]
[2021-02-25] MEDS ORDERED: MVI, Adult with Vitamin K 10 ML, Thiamine 200 MG, Zinc/Copper/Manganese/Selenium 1 ML i... IV SCH ×4 (16:00)
[2021-02-25] MEDS: traZODone 50 MG Tab PO SCH (20:22)
[2021-02-25] MEDS: tiZANidine 4 MG Tab PO SCH (20:22)
[2021-02-25] MEDS ORDERED: tiZANidine 4 MG Tab PO SCH (21:00)
[2021-02-25] MEDS ORDERED: traZODone 50 MG Tab PO SCH (21:00)
[2021-02-26] MEDS: Dextrose 5%-Lactated Ringers 1,000 ML IV SCH (03:12)
[2021-02-26] MEDS ORDERED: Metoclopramide 10 MG Tab PO PRN (03:24)
[2021-02-26] MEDS ORDERED: diphenhydrAMINE 25 MG Cap PO PRN (03:24)
[2021-02-26] MEDS: Acetaminophen 500 MG Tab PO SCH ×3 (03:31→20:46)
[2021-02-26] MEDS: HYDROmorphone 2 MG Tab PO PRN ×4 (03:33→20:50)
[2021-02-26] MEDS ORDERED: Iopamidol 612 MG/ML 50 ML SDV PO STA (03:52)
[2021-02-26] MEDS ORDERED: Cyanocobalamin (Vitamin B12) 1,000 MCG/ML SDV IM ONE (09:00)
[2021-02-26] MEDS: Loratadine 10 MG Tab PO SCH ×3 (09:50→20:46)
[2021-02-26] MEDS: Docusate Sodium 100 MG Cap PO SCH ×2 (09:50→20:44)
[2021-02-26] MEDS: Polyethylene Glycol 3350 Powder 17 GM Packet PO SCH ×3 (09:50→20:44)
[2021-02-26] MEDS: Estradiol 0.5 MG Tab PO SCH (09:50)
[2021-02-26] MEDS: Bisacodyl 5 MG Tab PO SCH ×2 (09:50→20:44)
[2021-02-26] MEDS: SCOPOLAMINE PATCH CHECK TOP SCH (09:51)
[2021-02-26] MEDS: Ondansetron 4 MG Tab.DIS PO PRN ×2 (11:46→18:15)
--- NOTE | 2021-02-26 13:44 | CR ---
[facility] HISTORY: Postbariatric surgery FINDINGS: Patient swallowed water-soluble contrast. Upright views of the abdomen show no evidence of extravasation or obstruction. There is a surgical drain in the left lower quadrant. IMPRESSION: Status post bariatric surgery No extravasation or obstruction seen
--- NOTE | 2021-02-26 14:48 | PN ---
DATE OF SERVICE: 02/26/2021 SUBJECTIVE: Chelsea's IV infiltrated. She is on oral hydromorphone and it is controlling her pain. She has not had a bowel movement yet. Blood pressure was in the 70s during the night, thought to be from all her nighttime medications. When she is aroused, her blood pressure will come up. She has no other concerns or questions. OBJECTIVE: GENERAL: Chelsea Vigil is a pleasant 55-year-old female. VITAL SIGNS: TPR is 96, 79, 16, blood pressure 110/49. HEENT: Negative. NECK: Supple. HEART: Regular rate and rhythm. LUNGS: Clear. ABDOMEN: Dressings dry and intact. Abdominal binder is on. EXTREMITIES: Without peripheral edema. ASSESSMENT: Exploratory laparotomy with lysis of adhesions: 1. Reduction of small bowel volvulus. 2. Small bowel strictureplasty. 3. Enteroenterostomy for tube decompression of the small bowel. 4. Placement of Interceed mesh. POSTOPERATIVE DIAGNOSES: Partial small bowel obstruction secondary to: 1. Small-bowel volvulus. 2. Focal small-bowel stricture. 3. Marked distention of small bowel. Date of procedure 02/24/2021. Surgeon: Eliazar Perez MD. PLAN: 1. MiraLAX 17 g p.o. t.i.d. scheduled. 2. Step 2 double helping gastric bypass diet. 3. Discontinue PREMA drain on 02/28/2020 at 0500. 4. We will evaluate p.r.n. or in a.m. Clementina Anna PA-C /[id number]
[2021-02-26] MEDS: tiZANidine 4 MG Tab PO SCH (20:46)
[2021-02-26] MEDS: traZODone 50 MG Tab PO SCH (20:46)
[2021-02-27] MEDS: HYDROmorphone 2 MG Tab PO PRN (01:11)
[2021-02-27] MEDS: Acetaminophen 500 MG Tab PO SCH ×2 (03:17→07:26)
[2021-02-27 07:09] VITALS: BP 115/49; PULSE 74
--- NOTE | 2021-03-01 11:12 | DISCH ---
ADMISSION DIAGNOSES: 1. Small bowel obstruction. 2. Severe abdominal pain. 3. SP Marjorie-en-Y gastric bypass surgery. 4. Unspecified surgical malabsorption. 5. B12 deficiency. 6. Celiac disease. 7. Chronic low back pain. 8. Allergic rhinitis. 9. Osteoarthritis. DISCHARGE DIAGNOSES: Exploratory laparotomy with lysis of adhesions: 1. Reduction of small bowel volvulus. 2. Small bowel strictureplasty. 3. Enteroenterostomy for tube decompression of the small bowel. 4. Placement of Interceed mesh. POSTOPERATIVE DIAGNOSES: Partial small bowel obstruction secondary to: 1. Small bowel volvulus. 2. Focal small bowel stricture. 3. Marked distention of small bowel. Date of procedure: 02/24/2021. Surgeon: Eliazar Perez MD HISTORY: Zaria Vigil is a pleasant 55-year-old female who had increasing episodes of postprandial abdominal pain. She had a CT scan done on 02/23/2021, then ate supper and the pain became quite severe and she presented to the emergency room. After preoperative evaluation and discussion of possible risks and possible complications, she wished to proceed with surgery. Surgery was on 02/24/2021. She had no operative complications. On postoperative day #1, she was started on a step-2 gastric bypass diet, was given bowel stimulation. On postoperative day #2, her IV did infiltrate during the night, she was given additional bowel stimulation, step-2 double helping gastric bypass diet and she started having bowel movements. Pain was controlled, activity was good and she was able to be discharged to home without any complications on 02/27/2021. PHYSICAL EXAMINATION: GENERAL: Chelsea Vigil is a 55-year-old female, height is 5 feet 4 inches, weight is 201 pounds. VITAL SIGNS: TPR is 95.2, 74, 18, blood pressure 115/49. HEENT: Negative. NECK: Supple. HEART: Regular rate and rhythm. LUNGS: Clear. ABDOMEN: Aquacel dressings on. Abdominal binder is on. EXTREMITIES: Without peripheral edema. DISPOSITION: Discharged to home. CONDITION: Stable and improving. FOLLOWUP APPOINTMENT: Clementina Anna PA-C, on 03/08/2021 at 10 a.m. HOME MEDICATIONS: Dilaudid 2 mg every 4 hours p.r.n. pain, #42. She is to resume her home medications of all her vitamins and supplements. Claritin 10 mg p.o. daily; Levsin 0.125 mg p.o. every 4 hours p.r.n. esophageal spasms; Estrace 0.5 mg p.o. daily; trazodone 50 mg at bedtime; tizanidine 8 mg at bedtime; Tylenol Extra Strength 1000 mg every 8 hours. Vitamins and supplements include vitamin D3 one daily, folic acid 1 mg daily, vitamin B12 2500 mcg sublingual daily, calcium supplement one daily, multivitamin one chewable twice a day and vitamin B complex one tablet at bedtime. DIET: Step-3 gastric bypass diet, start gradually and be very careful not to advance diet too quickly, 65 grams of protein and 64 ounces of fluid. ACTIVITY: No lifting greater than 10 pounds for 6 weeks. OTHER ACTIVITY: Walk inside your home 6 times daily. Driving: Do not drive for 1 week or within 6 hours of taking Dilaudid. May shower. DISCHARGE INSTRUCTIONS: Keep operative site clean and dry. Take off Aquacel dressing on 03/02/2021. Wear abdominal binder for 6 weeks and then as tolerated. Notify provider if any fever, increased pain, swelling, redness, nausea or vomiting. Use incentive spirometer 10 times every hour while awake for 1 week. /[id number]
--- NOTE | 2021-03-01 12:51 | OR ---
DATE OF PROCEDURE: 02/24/2021 SURGEON: lEiazar Perez MD PREOPERATIVE DIAGNOSIS: Partial small bowel obstruction. POSTOPERATIVE DIAGNOSES: 1. Partial small bowel obstruction secondary to: a. Small bowel volvulus. b. Focal small bowel stricture at jejunojejunostomy. 2. Marked dilation of small bowel. OPERATIVE PROCEDURES: Exploratory laparotomy with lysis of adhesions and: 1. Reduction of small bowel volvulus and closure of internal hernia (92397). 2. Small bowel stricturoplasty (62612). 3. Enterostomy for tube decompression of proximal dilated small bowel (30708). 4. Placement of Interceed mesh to limit recurrent adhesion formation between the pelvic and abdominal wall and underlying viscera (47875). ANESTHESIA: General. SUPERVISOR AIR CONDITIONING INSTALLER: Clementina Anna PA-C INDICATIONS FOR PROCEDURE: A 55-year-old female admitted overnight with what appeared to be partial small-bowel obstruction, status post previous Marjorie-en-Y gastric bypass. Early this morning, she developed more severe pain and given this is at this point in time undergoing exploratory laparotomy with lysis of adhesions and/or bowel resection as indicated. Potential risks of the procedure including bleeding, infection, leaks from various GI tract closures, and possible recurrence of the problem over time as well as possibility of cardiopulmonary, septic, or hemorrhagic complications leading to were discussed and the patient wishes to proceed. DETAILS OF PROCEDURE: The patient was taken to the operating room, placed in a supine position. After general endotracheal anesthesia was induced, a Arechiga catheter was inserted and the abdomen prepped and draped. An upper midline incision was made, and the incision extended slightly below the umbilicus and carried down through the full thickness of abdominal wall. Upon entering the peritoneal cavity, there was quite a bit of lymphatic type fluid consistent with chronic obstructive state involving the small bowel mesentery, and the biliopancreatic limb and the Marjorie limb were both quite strikingly dilated and edematous. The small bowel including the portion of the jejunojejunostomy was rotated from a right to left direction underneath the mesenteric defect, which had been created between a combination of small mesenteric defect between the jejunojejunostomy and adhesion in that area. This was eventually reduced. The bowel remained what appeared to be obstructed somewhat at the junction of the biliopancreatic limb and common limb with the common limb being decompressed. The Marjorie limb at this point appeared to be not obstructed per se after reduction of volvulus. At this point, the opening at the point where the biliopancreatic limb joined the common limb was made, and [place] sump tube was then able to be passed into the biliopancreatic limb as well as the Marjorie limb to decompress those areas. Once this was completed, the strictureplasty was then accomplished with placement of a stapler between the opening in the end of the biliopancreatic limb and the common limb and that is being stapled with a 60 mm ORALIA stapler internally followed by another 30 mm internal firing. Common opening was then closed transversely with the same stapler. Anastomosis was then inspected at this point and found to be very satisfactory and was reinforced with some fibrin sealant. The mesenteric defect after division of the adhesion was then closed off with a running 2-0 silk stitch. The abdomen was irrigated with meropenem-containing saline solution. Interceed mesh was then placed underneath the incision from there down towards the pelvis to limit recurrent adhesion formation, and the midline fascia was then approximated with a #2 Vicryl stitch, the subcutaneous tissue with 2 layers of 3-0 and 4-0 Vicryl stitch and the skin with aman. Prior to closure, bilateral transversus abdominis plane blocks were placed, and the incision was also anesthetized with 1% lidocaine mixed with Marcaine. The patient was taken to the recovery room in satisfactory condition. Physician assistant professor nurse education, Clementina Anna, played an essential role in assisting in this case, helping to position the patient, retract structures as needed, as well as suturing and stapling when indicated. Her presence improved patient safety and decreased operative time. Eliazar Perez MD /[id number]
== END 2021-02-27 09:00 | disposition home or self-care (01) | DRG 223 ==
LOC: JP.ED 17:05 → JP.MS 17:44 → OBSVTOIN 02-24 07:25
PROVIDERS: ADMIT Surgery; ATTEND Surgery
PROC: 0DS80ZZ Reposition Small Intestine, Open Approach (ICD-10-PCS; principal; 2021-02-24)
PROC: 0DQV0ZZ Repair Mesentery, Open Approach (ICD-10-PCS; 2021-02-24)
PROC: 3E0M05Z Introduction of Adhesion Barrier into Peritoneal Cavity, Open Approach (ICD-10-PCS; 2021-02-24)
DX: K95.89 Other complications of other bariatric procedure (principal); K56.2 Volvulus; H54.7 Unspecified visual loss; J30.9 Allergic rhinitis, unspecified; K21.9 Gastro-esophageal reflux disease without esophagitis; K44.9 Diaphragmatic hernia without obstruction or gangrene; E66.9 Obesity, unspecified; M19.90 Unspecified osteoarthritis, unspecified site; G89.29 Other chronic pain; D64.9 Anemia, unspecified; E61.1 Iron deficiency; M54.2 Cervicalgia; M81.0 Age-related osteoporosis without current pathological fracture; Z96.653 Presence of artificial knee joint, bilateral; E55.9 Vitamin D deficiency, unspecified; M54.5 Low back pain; Z88.5 Allergy status to narcotic agent; Z88.8 Allergy status to other drugs, medicaments and biological substances; Z88.0 Allergy status to penicillin; Z88.1 Allergy status to other antibiotic agents; Z79.899 Other long term (current) drug therapy; Z90.49 Acquired absence of other specified parts of digestive tract; Z90.710 Acquired absence of both cervix and uterus; Z68.34 Body mass index [BMI] 34.0-34.9, adult
CPT/HCPCS: 36415; 74019; 74019-26; 74240; 74240-26; 80053; 81001; 82150; 83605; 83690; 83735; 83880; 84100; 84484; 85025; 88305; 94762; 96374; 96375; 96376; 99283; 99285-25; A9270-GY; C9113; G0378; J0171; J0330; J1100; J1170; J1200; J2020; J2060; J2185; J2405; J2704; J2710; J2795; J3010; J3410; J3411; J3420; J3475; J3490; J7120; J7121; Q9967

== ENCOUNTER → 2022-04-08 | Day surgery (SDC) | payer BC ==
[~2022-04-08] MED LIST changes: +Cyanocobalamin (Vitamin B12) 1,000 MCG/ML SDV IM ONE; +Glycopyrrolate 0.2 MG/ML 2 ML SDV IVPUSH ONE; -Glycopyrrolate 0.2 MG/ML 5 ML MDV ONE; +Lactated Ringers 1,000 ML IV ONE; +MVI, Adult with Vitamin K 10 ML, Thiamine 200 MG, Zinc/Copper/Manganese/Selenium 1 ML i... IV ONE; +Midazolam 1 MG/ML 2 ML SDV ONE; -Neostigmine Methylsulfate 1 MG/ML 5 ML Syringe ONE; -Ondansetron 4 MG/2 ML SDV ONE; -Rocuronium 50 MG/5 ML Vial ONE; -Succinylcholine 200 MG/10 ML MDV ONE; +fentaNYL 100 MCG/2 ML SDV ONE; -fentaNYL 250 MCG/5 ML SDV ONE
[2022-04-08 07:56] VITALS: BP 127/72; PULSE 71
== END ==
LOC: JP.SDS 05:18
PROVIDERS: ATTEND Surgery
DX: K91.89 Other postprocedural complications and disorders of digestive system (principal); R13.10 Dysphagia, unspecified; K21.9 Gastro-esophageal reflux disease without esophagitis
CPT/HCPCS: C1726; J1100; J2250; J2704; J3010; J3411; J3420; J3490; J7120

== ENCOUNTER 2023-09-20 08:55 | Day surgery (SDC) | payer BC ==
[2023-09-20] MEDS ORDERED: Cyanocobalamin (Vitamin B12) 1,000 MCG/ML SDV IM ONE (09:30)
[2023-09-20] MEDS ORDERED: Lactated Ringers 1,000 ML IV ONE (09:30)
[2023-09-20] MEDS ORDERED: Glycopyrrolate 0.2 MG/ML 2 ML SDV IVPUSH ONE (10:00)
[2023-09-20] MEDS ORDERED: Midazolam 1 MG/ML 2 ML SDV ONE (10:06)
[2023-09-20] MEDS ORDERED: Propofol 200 MG/20 ML SDV ONE (10:06)
[2023-09-20] MEDS ORDERED: fentaNYL 100 MCG/2 ML SDV ONE (10:06)
[2023-09-20] MEDS ORDERED: MVI, Adult with Vitamin K 10 ML, Thiamine 200 MG, Zinc/Copper/Manganese/Selenium 1 ML i... IV ONE ×4 (10:30)
[2023-09-20 12:47] VITALS: BP 130/78; PULSE 70
== END 2023-09-20 12:57 | disposition home or self-care (01) ==
LOC: JP.SDS 08:55
PROVIDERS: ATTEND Student in an Organized Health Care Education/Training Program
DX: K22.89 Other specified disease of esophagus (principal); I49.3 Ventricular premature depolarization; K21.9 Gastro-esophageal reflux disease without esophagitis; D64.9 Anemia, unspecified; Z93.4 Other artificial openings of gastrointestinal tract status; Z88.1 Allergy status to other antibiotic agents; Z88.0 Allergy status to penicillin; Z88.5 Allergy status to narcotic agent; Z88.8 Allergy status to other drugs, medicaments and biological substances
CPT/HCPCS: 88305; J2250; J2704; J3010; J3411; J3490; J7120